=== PATIENT | male | born 1945 | race Caucasian/White ===

== ENCOUNTER 2017-11-02 12:27 | Inpatient (IN) | payer MEDICARE, BC ==
[~2017-11-02 12:27] MED LIST: ISOVUE-370 76%-LOCM 1 ML ONE
[2017-11-02] MEDS ORDERED: Diprivan 0 ML ONE (15:00)
--- NOTE | 2017-11-02 15:10 | PDOC.EVN ---
Event Note - Event Note Event Note: Attending H&P I personally evaluated the patient and discussed the management with Drs. West and Delia. their H&P is repeated by me. I agree with the History, Examination, Assessment and Plan documented above with any addition or exceptions noted below. Summary at time of admission: Mr Bahena presents as a transfer from [facility]. He was admitted there 4 days ago for acute worsening diarrhea, fever, N/V. As noted below there are many significant problems. Full clinical picture is unclear. Admission to ICU for eval. Neuro: They note a seizure on day of admission but none thereafter. The physician who requested transfer old Dr Giraldo he has had nuchal rigidity and may have meningitis. He was intubated prior to transfer by EMS Team for mental status change. It was reportedly a difficult ET placement, due to a swollen tongue, uvula. We will obtain CT scan of Head and plan for LP. Antibiotics based on CSF gram stain, Cx, and analysis. GI: He was treated with cipro and flagyl for diarrhea. Diarrhea remains. Abdomen is distended on exam. CT of Abdomen to be obtained. Empiric tx for C.diff. Stool analysis and culture to be performed. [place] stool test results not available. F/E/N: He was also noted to have low Calcium, Phosphorus, Magnesium. These remain. Will place central line, electrolyte protocol. Nephro consult. MK: He has elevated Creatinine Kinase. This has worsened. IV fluid replacement. PULM: There is some air leakage and Chest xray reveals abnormal placement of ET tube. Anesthesia is consulted to replace ET tube. ID: Dr Johnson will be consulted for critical care adn pulmonary care. We appreciate his car adn expertise. Zosyn/Vanc to be initiated empirically.
[2017-11-02] MEDS ORDERED: Ondansetron ODT 4 MG TAB PO PRN (15:16)
[2017-11-02] MEDS ORDERED: Ondansetron HCl/PF 4 MG/2 ML Vial IVP PRN (15:16)
[2017-11-02] MEDS ORDERED: CCU Electrolyte Replacement 1 EACH FS ONE (15:26)
[2017-11-02] MEDS ORDERED: Sedation Protocol FS ONE (15:26)
--- NOTE | 2017-11-02 16:02 | RAD ---
RADIOGRAPH CHEST 1 VIEW: Date: 11/02/17 Time: 1:54 p.m. HISTORY: 72-year-old male status post intubation. No other clinical information is available. COMPARISON: None. FINDINGS: A total of three AP images are submitted for this one view study. One of them is slightly underexpose d, and time stamped at 1:54 p.m., and shows the distal tip of an endotracheal tube overlying the righ t side of the T1 vertebral body. It is unknown whether this is in the trachea or esophagus. No pulmon desirae edema. Nonspecific density in the right perihilar region. No ectasia of the thoracic aorta. No pn eumothorax. Lateral costophrenic angles are sharp. No consolidation. Another image time stamped is 1:52 p.m., is overexposed, suboptimal, and excludes the lung apices. It shows a midline descending catheter reaching the subcarinal level of the mediastinum, then doubling back upon itself such that the distal tip is 7 cm super to this flexure point. It is presumed that th is is an NG tube. The one before that at 1:51 p.m., shows the same catheter, but the upper halves of the lungs are excl uded from the field of view. There is a large amount of gas in bowel loops throughout the upper abdomen. There is what appears to be thumbprinting involving the stomach. IMPRESSION: 1. Two of the images demonstrate a catheter descending the mediastinum, then doubled back upon i tself, with the distal tip ascending. It is presumed that this is an NG tube in the esophagus. 2. The last image demonstrates a tube with distal tip at the cervicothoracic junction. 3. Abnormal appearance of the stomach could represent infiltrative gastric carcinoma. 4. No acute pulmonary findings. [place] [] POS: JESSICA
--- NOTE | 2017-11-02 16:09 | RAD ---
RADIOGRAPH CHEST 1 VIEW: 11/02/17 HISTORY: 72-year-old male status post intubation. FINDINGS: The thoracic aorta is tortuous and ectatic. There is no evidence of air space density, pneumothorax, or pulmonary edema. The lateral costophrenic angles are sharp. NG tube distal tip overlies the prox imal stomach bubble. The inner gustafson of the stomach are diffusely very irregular and nodular, suspici ous for extensive infiltrative gastric neoplasm. Endotracheal tube distal tip overlies the mid thorac ic trachea. No cardiomegaly. Small stellate density at mid lung zone is probably right upper lobe sca r. IMPRESSION: 1) No acute pulmonary findings. 2) Ectasia of thoracic aorta. 3) Endotracheal tube distal tip overlies the mid thoracic trachea. 4) Nasogastric tube distal tip overlies the proximal stomach with the side port probably at the low e sophagus. 5) Abnormality of the stomach, possibly diffuse infiltrative gastric cancer. ron [] POS: JESSICA
--- NOTE | 2017-11-02 16:16 | RAD ---
RADIOGRAPH CHEST 1 VIEW: Date: 11-02-17 Time: 2:44 P.M. HISTORY: 72-year-old male status post intubation. COMPARISON: 11-02-17 at 2:41 p.m. FINDINGS: There is no interval change overall. IMPRESSION: No interval change compared to three minutes ago. [place] POS: JESSICA
[2017-11-02] MEDS ORDERED: Morphine 2 MG/ML SYRINGE SLOW IVP PRN (16:28)
[2017-11-02] MEDS ORDERED: CCU ELECTROLYTE REPLACEMENT PROTOCOL FS PRN (16:29)
[2017-11-02] MEDS ORDERED: Potassium Phosphate 9 MMOL in Sodium Chloride 0.9% 100 ML IVPB PRN (16:29)
[2017-11-02] MEDS ORDERED: Potassium Phosphate 15 MMOL in Sodium Chloride 0.9% 250 ML 250 ML IV PRN (16:29)
[2017-11-02] MEDS ORDERED: Potassium Chloride 40 MEQ in Sodium Chloride 0.9% 250 ML 250 ML IVPB PRN (16:29)
[2017-11-02] MEDS ORDERED: Potassium Phosphate 12 MMOL in Sodium Chloride 0.9% 250 ML 250 ML IV PRN (16:29)
[2017-11-02] MEDS ORDERED: Magnesium Oxide 400 MG TAB PO PRN ×2 (16:29)
[2017-11-02] MEDS ORDERED: Potassium Chloride 20 MEQ TAB PO PRN (16:29)
[2017-11-02] MEDS ORDERED: Magnesium 2 GM/NS 0.9% 100 ML 2 GM in Premix Bag 1 BAG IVPB PRN (16:29)
[2017-11-02 16:33] LABS: Actual Bicarbonate (HCO3a) 15.9 mEq/L (22-26); Base Excess (BEa) -8.9 mEq/L (0 (+/-) 2.5); CO2 Tension 31.6 mmHg (35.0-45.0); Hematocrit-ABG 42.9 % (42.0-52.0); Hemoglobin (Hb) 13.7 g/dL (14.0-18.0); O2 Tension (PaO2) 109.5 mmHg (80.0-100.0); pH, Arterial 7.32 (7.35-7.45)
[2017-11-02 16:41] LABS: Puncture Site RBRACH
[2017-11-02] MEDS ORDERED: Propofol 1,000 MG/100 ML VIAL IV ONE (16:41)
[2017-11-02] MEDS: Vancomycin HCl 1.25 GM in Sodium Chloride 0.9% 250 ML 250 ML IVPB SCH (17:00)
--- NOTE | 2017-11-02 17:58 | PDOC.OP ---
Operative Note - Operative Note Operative Note: INDICATION: IV access, unable to obtain peripheral access PROCEDURE FLIGHT ENGINEER MANAGER: Dr. Modesto Garcia ATTENDING PHYSICIAN: _ In Attendance (Yes)-Dr. Cagle CONSENT: Consent was obtained from pt's prior to the procedure. Indications, risks, and benefits were explained at length. PROCEDURE SUMMARY: A time out was performed. My hands were washed immediately prior to the procedure. I wore a surgical cap, mask with protective eyewear, full gown and sterile gloves throughout the procedure. The patient was placed in Trendelenburg position. RIGHT chest region was prepped using chlorhexidine scrub and draped in sterile fashion using a three quarter sheet drape and sterile towels. The medial and lateral heads of the sternocleidomastoid muscle were identified as was the carotid pulse. The right Internal Jugular vein was identified using the ultrasound. Anesthesia was acheived using propofol. Using real-time out of plane guidance, the introducer needle was inserted into the right Internal Jugular vein under direct ultrasound visualization. Venous blood was withdrawn. The syringe was removed and a guidewire was advanced into the introducer needle. The guidewire was visualized in the right Internal Jugular Vein by ultrasound. A small incision was made at the skin surface with a scalpel and the introducer needle was exchanged for a dilator over the guidewire. After appropriate dilation was obtained, the dilator was exchanged over the wire for a triple lumen central venous catheter. The wire was removed and the catheter was sutured in place at 15cm. A sterile bipatch shield was placed over the catheter at the insertion site. The patient tolerated the procedure without any hemodynamic compromise. At time of procedure completion, all ports aspirated and flushed properly. Post-procedure chest x-ray was completed; preliminary review showed adequate placement and no pneumothorax. Estimated blood loss is 15cc.
[2017-11-02] MEDS: Sodium Chloride 0.9% 1,000 ML IV SCH ×2 (18:00→22:26)
[2017-11-02] MEDS: Piperacillin/Tazobactam 3.375 GM in Sodium Chloride 0.9% 100 ML IVPB SCH ×2 (18:00→23:01)
[2017-11-02 18:37] LABS: Hemoglobin 14.1 g/dL (14.0-18.0); Mean Corpuscular HGB CONC 33.7 g/dL (32.0-36.0); Mean Corpuscular Hemoglobin 33.7 pg (27.0-31.0); Platelet Count 206 thou/uL (130-400); RBC Distribution Width 11.7 % (11.5-14.5); Red Blood Cell (RBC) Count 4.18 mill/uL (4.70-6.10); White Blood Cell (WBC) Count 23.8 thou/uL (4.8-10.8)
[2017-11-02 18:48] LABS: ALT (SGPT) 39 U/L (8-55); AST (SGOT) 64 U/L (5-34); Albumin 3.7 g/dL (3.4-4.8); Alkaline Phosphatase 36 U/L (40-150); Anion Gap 16 mmol/L (10-20); BUN (Urea Nitrogen) 23 mg/dL (8.4-25.7); Bilirubin, Total 1.2 mg/dL (0.2-1.2); Calc. Creatinine Clearance 0 mL/min (70-130); Calcium 7.7 mg/dL (7.8-10.44); Carbon Dioxide 20 mmol/L (23-31); Chloride 110 mmol/L (98-107); Estimated GFR-MDRD 52; Globulin 2.6 g/dL (2.4-3.5); Glucose 148 mg/dL (83-110); Lipase 12 U/L (8-78); Potassium 3.4 mmol/L (3.5-5.1); Protein, Total 6.3 g/dL (5.8-8.1); Sodium 143 mmol/L (136-145)
[2017-11-02 18:51] LABS: Band 5 % (5-11); Lymphocytes 9 % (21-51); MDiff Complete? YES; Macrocytosis SLIGHT = 6-15 cells (100X) (0-5/hpf); Monocytes 3 % (0-10); Neutrophil 83 % (42-75); PLT Morphology Comment Appears Adequate; Polychromasia SLIGHT = 2-3 cells (100X) (0-2/hpf)
--- NOTE | 2017-11-02 18:51 | RAD ---
RADIOGRAPH CHEST 1 VIEW: Date: 11/02/17 Time: 5:43 p.m. HISTORY: Central line placement in 72-year-old male. COMPARISON: 11/02/17, 2:44 p.m. FINDINGS: There is a new vertically oriented central vascular catheter descending from the right neck, with dis hazel tip overlying the region of the SVC. This is a supine image, which would be insensitive for pneum othorax detection. No obvious large pneumothorax is identified. Endotracheal tube and NG tube remain. No consolidation or pulmonary edema. IMPRESSION: Right internal jugular central venous catheter placement. [place] [] POS: JESSICA
[2017-11-02 21:44] LABS: Bilirubin Small (Negative); Blood, Urine Large (Negative); Clarity CLOUDY (Clear); Glucose, Urine (Dipstick) Negative (Negative); Leukocyte Small (Negative); Nitrite Negative (Negative); Protein, Urine (Dipstick) 100 mg/dL (Neg-Trace); Specific Gravity, Urine 1.022 (1.002-1.036); Urobilinogen 0.2 mg/dL (0.2-1.0); pH, Urine 5.5 (5.0-9.0)
[2017-11-02 21:45] LABS: Bacteria/HPF None Seen HPF (None Seen); RBC/HPF GREATER THAN 50-TNTC HPF (0-3)
[2017-11-02] MEDS: Potassium Chloride 40 MEQ in Premix Bag 1 BAG IVPB PRN (21:45)
[2017-11-02 21:46] LABS: Pathc Cast-AUWi Flag 3.52 (0-2.49)
--- NOTE | 2017-11-02 21:56 | CT ---
EXAM: NONCONTRAST HEAD CT 11/02/17 HISTORY: Altered mental status. COMPARISON: None. FINDINGS: No parenchymal hemorrhage. No extra-axial hematoma. No midline shift. Basilar cisterns are patent. Brain volume, age appropriate. Cortical jones-white matter differentiation is preserved. Ventricles and sulci are patent and symmetric. Chronic small vessel ischemic change of the white matter identified. Malacic change involving the medial right temporal lobe/hippocampus. Calvarium is intact. Adequate aeration of the mastoid air cells. Partial opacification of the ethmoid air cells. IMPRESSION: 1. No acute intracranial process. 2. Age appropriate atrophy. 3. Chronic small vessel ischemic change of the white matter. 4. Medial right temporal lobe/hippocampal malacic change. POS: [facility]
[2017-11-02 22:08] LABS: Other Casts/LPF 4-6 COARSE GRAN LPF (0-3 Hyaline)
[2017-11-02 22:09] LABS: Renal Epithelial 0-3 HPF (0-3)
[2017-11-02] MEDS: Pantoprazole 40 MG VIAL IVP SCH (22:18)
[2017-11-02] MEDS: Propofol 1,000 MG/100 ML VIAL IV PRN (22:26)
--- NOTE | 2017-11-02 22:54 | CT ---
EXAM: ABDOMEN CT WITH CONTRAST PELVIC CT WITH CONTRAST 11/02/17 HISTORY: Abdominal distention. COMPARISON: None. TECHNIQUE: An abdomen and pelvic CT are performed with IV contrast. Enteric contrast was not administered. Coron al reformatted images are submitted for interpretation. FINDINGS: ABDOMEN CT: Small bilateral effusion with adjacent lung parenchymal changes likely due to atelectasis. Heart size is within normal upper limits of normal. Coronary artery calcifications identified. Descending thora cic aorta and abdominal aorta have an overall normal caliber. No periaortic fat stranding. Intra and extrahepatic portal vein is patent. Small amount of nonspecific fluid adjacent to the tip of the liver as well as in Zuñiga's pouch. Th ere is appropriate enhancement of the liver, spleen, pancreas, and adrenal glands. Gallbladder is unremarkable. Symmetric enhancement of the kidneys. Kidneys are slightly rotated. No evidence of obstructive uropat hy. No gastrohepatic, retrocrural or periportal lymphadenopathy. No mesenteric mass, lymphadenopathy or free air. Small amount of fluid in the right pericolic gutter. Limited evaluation of the alimentary canal due to the lack of oral contrast administration. Nasogastr ic tube terminates in the gastric cardiac. Consider advancement. Mucosal prominence of the stomach li cesar due to inadequate distention. There is mucosal prominence and adjacent fluid and stranding at th e gastric antrum and first and second portions of the duodenum. There is an eccentric focus of air at tenuation adjacent to the second portion of the duodenum without associated adjacent mesenteric fat s tranding. A small diverticulum with an air fluid level is favored. This diverticulum measures approxi mately 1.9 cm. Small perforation due to peptic ulcer disease cannot be completely excluded; however, lack of inflammatory change at the location of the air collection suggests that this is less favored possibility. However, as stated above, there is some edema involving the distal stomach and proximal duodenum. There is abrupt transition just beyond this focal air collection. There are multiple fluid filled nondistended, nondilated small bowel loops. Ileocecal junction appears to be normal. Appendix is not appreciated. There is air attenuation involving the right hemicolon and transverse colon witho ut juanita colonic distention. There is fluid attenuation of the left hemicolon. Occasional diverticulu m in the sigmoid colon. No diverticulitis. PELVIC CT: Urinary bladder is unremarkable. There is free fluid in the pelvis. No mass, lymphadenopathy or free air. There are no lytic or blastic lesions in the osseous structures. Remote compression fracture in the distal thoracic spine is noted. IMPRESSION: 1. Advancement of the nasogastric tube is recommended. 2. Edematous change involving the distal stomach and proximal duodenum. Correlate for possible u lcer disease. There is a focal air collection in the second portion of the duodenum without significa nt adjacent inflammatory change. A small duodenal diverticulum is favored. Ulcerative lesion cannot b e completely excluded but is less favored at this time due to lack of inflammatory at the site of the small air collection. 3. Mild distention of an air filled colon without evidence of colonic obstruction. 4. Abrupt caliber change in the duodenum just beyond the aforementioned air collection. 5. Small amount of free fluid in the right hemiabdomen. POS: JESSICA
[2017-11-02 23:32] LABS: CSF Source CSF
[2017-11-02 23:33] LABS: Clarity Clear (Clear); RBC Count - Manual 237 /cumm (None Seen); Tube # 4; WBC/NonHematics Count - Manual 4 /cumm (0-5)
[2017-11-02 23:37] LABS: Magnesium 1.7 mg/dL (1.6-2.6)
[2017-11-02 23:40] LABS: Phosphorus 1.7 mg/dL (2.3-4.7)
[2017-11-03] MEDS: Vancomycin HCl 1.25 GM in Sodium Chloride 0.9% 250 ML 250 ML IVPB SCH (00:34)
--- NOTE | 2017-11-03 00:50 | CON ---
DATE OF CONSULTATION: 11/02/2017 HISTORY OF PRESENT ILLNESS: Mr. Bahena is a 72-year-old male transferred here from [place]. Appare maydaly, he was admitted there with gastrointestinal problems and electrolyte abnormalities. I am not s ure what his electrolyte abnormalities were, but a call was made by a physician caring for the patien t in [place] requesting a transfer, the patient was accepted, transferred here by air ambulance. Apparently, the patient was intubated prior to transfer. Patient arrived with a 6.0 endotracheal tub e. It is unclear whether or not the tube was in the proper position. Anesthesia was consulted and t he patient was reintubated with an 8-0 tube after arrival. At this time, past medical history is unknown. He has never been at this hospital before. There is some history of seizure occurring prior to today at that hospital. FAMILY HISTORY: Unknown. SOCIAL HISTORY: Unknown. There is no family here, I will interview them as soon as they are availab le. PHYSICAL EXAMINATION: VITAL SIGNS: Heart rate 77, blood pressures in the 80s-90s, respiratory rate 18, oximetry is 100%. HEENT: Pupils react. Sclerae is anicteric. NECK: Supple. LUNGS: Clear anteriorly. HEART: Regular rhythm. ABDOMEN: Soft. EXTREMITIES: Without asymmetry. LABORATORY AND X-RAY FINDINGS: Sodium 143, potassium 3.4, chloride 110, bicarbonate 20, BUN 23, crea tinine 1.35, glucose 148, calcium 7.7, total protein 6.3, albumin is 3.7. He has an elevated parathy roid hormone, TSH is 1.1. Blood gas 7.32, CO2 of 31, pO2 of 109. White count 23, hemoglobin 14, ramón telets 206,000, 83 segs, 5% bands. IMPRESSION: Respiratory failure of unclear etiology. He had a clear radiograph, so pulmonary edema was in because of his need for intubation. It is unknown whether he has any history of obstructive l loyda disease. Abdomen and pelvis CT and head CT have been ordered. I will be happy to follow with the other physicians caring for him, appears to be stable. At this po int in time, adrenal insufficiency should be ruled out, since he is relatively hypotensive. It is un clear how [facility] ADDENDUM: I would consider directed antimicrobial therapy. He does not clinically appear to be septic, at this point in time, I see no clear reason for vancomycin intravenously, would use antibiotics cautiously since we really do not have a clear diagnosis at this point in time.
--- NOTE | 2017-11-03 00:54 | HP-2 ---
CODE STATUS: FULL. PRIMARY CARE PHYSICIAN: Liv mccabe. ATTENDING: Mike Cagle M.D. RESIDENT: Teodoro Lin DO HISTORIAN: Transferring facility and patient's medical record. CHIEF COMPLAINT: Altered mental status. HISTORY OF PRESENT ILLNESS: The patient presented to the transferring facility emergency room on 10/31 with 4 days of acute on chronic diarrhea with associated nausea and vomiting. He was admitted for electrolyte imbalance and dehydration where he was to receive replacement and intravenous fluids. During the inpatient, there was significant difficulty in maintaining the patient's magnesium and phosphorus levels. Additionally, the patient had increasing LFTs and bilirubin. In the ED prior to admission the patient seized for an undetermined reason. Also, during the initial admission, the patient had 1 day of fever as high as 100.7. While admitted, he had been treated with Cipro and Flagyl for presumed C. diff; however none of the stool studies had resulted by the time of discharge. The patient was transferred for an acute change in mental status and inability to manage the patient's electrolytes. The patient was intubated prior to transfer due to deteriorating ability to protect his airway. At this facility, the patient arrived intubated and had been medicated with succinylcholine, rocuronium and sedated on ketamine. The patient was initially intubated with a 6-0 ET tube. An Xray to verify placement of the tube was unable to show proper placement. Anesthesia was consulted to replace the 6.0 with an 8.0 ET tube. With a glide scope it was determined that the original ET tube cuff was above the vocal cords. The patient was then successfully intubated by anesthesia with a verification of ET tube placement with chest x- ray. PAST MEDICAL HISTORY: Hypertension, diabetes, GERD, irritable bowel syndrome, chronic diarrhea and a chronic low magnesium, likely secondary to chronic mild diarrhea. PAST SURGICAL HISTORY: Includes appendectomy and a colonoscopy in which 2 benign polyps removed. This was 2 months ago. MEDICATIONS: Aspirin 81, loratadine 10 mg, losartan 100 mg daily, magnesium 400 mg daily, metformin 500 mg, metoprolol 100 mg, omeprazole 20 mg, triamterene and hydrochlorothiazide 37.5/25 mg, and a multivitamin. SOCIAL HISTORY: Tobacco none. Alcohol none. Drugs none. The patient is . REVIEW OF SYSTEMS: General: The patient had a fever during the initial hospitalization. HEENT: Unknown. Respiratory: Unknown. Cardiovascular: Unknown. Gastrointestinal: Patient had no diarrhea. Genitourinary: Unknown. Skin: Unknown. Musculoskeletal: Unknown. Review of systems, though, apparently there was a seizure at some point during initial admission. PHYSICAL EXAMINATION: VITAL SIGNS: Blood pressure 160/78, pulse 84, respiratory rate 15, T-max 100.7 , pulse ox 96% ventilated, rate of 10, tidal volume 500, 50% oxygen. Current weight is 73 kilograms. GENERAL: The patient is currently sedated and intubated. HEENT: Pupils are fixed and pinpoint. NECK: No lymphadenopathy. CARDIOVASCULAR: Regular rate and rhythm without murmur. RESPIRATORY: Patient is intubated. LUNGS: Clear. SKIN: Warm and dry. ABDOMEN: Bowel sounds in all 4 quadrants without mass. EXTREMITIES: No clubbing, cyanosis or edema. MUSCULOSKELETAL: There is good muscle tone. LABORATORY DATA: CBC: Hemoglobin 12.9, hematocrit 37.9 white count 24.2, platelets 210, MCV 95.5, 83% neutrophils, 3% bands. CMP: Sodium 138, potassium 3.1, chloride 112, bicarb 19, BUN 21, creatinine 1.32, glucose 120, calcium 6.7, total serum protein 7.2, albumin 4.2, total bilirubin 1.8, AST 126 , ALT 23, GFR 53. Mag is 2.48, phosphorus is 2.2. Flu is negative. CK is 6053. UA specific gravity 1.02, blood negative, protein negative, leukocyte esterase negative, nitrates negative, ketones trace, glucose negative, RBCs negative, WBCs 0-3, bacteria negative. IMAGING: CT head done at the outside facility which was normal limits. ASSESSMENT AND PLAN: 1. Altered mental status. The patient is currently intubated. Repeat the CT brain once completed a lumbar puncture, culture blood, urine, and CSF. We will start empiric vancomycin and Zosyn dose renally. 2. Diarrhea as presumed Clostridium difficile. We will reorder Clostridium difficile antigen, stool cultures, FOBT, lactoferrin. Antibiotics as above. We will get CT abdomen and pelvis. 3. Acute respiratory failure. On repeat imaging, ET tube has been replaced. 4. Hypokalemia, hypomagnesemia, hypophosphatemia, hypocalcemia. We will get a central line and start electrolyte protocol, get q.8h CMP, mag, phos, additionally for the calcium. We will order a PTH, TSH, and Vit D. 5. Creatinine and GFR is improving per the labs from the outside facility, intravenous fluids at 125, repeat CMP as above. 6. Hypertension, controlled on home medications. 7. Diabetes. Metformin 500 mg daily. 8. Hyperbilirubinemia. CMP as above. 10. Elevated liver function tests. CMP as above. 11. Rhabdomyolysis, IVF as above. Trend CKs. 12. Leukocytosis. Antibiotics as above. Cultures above. This is most likely elevated due to Clostridium difficile. MTDD
[2017-11-03] MEDS: Sodium Chloride 0.9% 1,000 ML IV SCH (04:24)
[2017-11-03 04:45] LABS: #Eosinphils 0.1 thou/uL (0.0-0.7); #Lymphocytes 1.9 thou/uL (1.20-3.40); #Monocytes 1.4 thou/uL (0.11-0.59); #Neutrophils 16.5 thou/uL (1.40-6.50); %Basophils 0.2 % (0.0-1.0); %Eosinophils 0.5 % (0.0-10.0); %Lymphocytes 9.6 % (21.0-51.0); %Monocytes 7.1 % (0.0-10.0); %Neutrophils 82.7 % (42.0-75.0); Mean Corpuscular HGB CONC 33.8 g/dL (32.0-36.0); Mean Corpuscular Hemoglobin 33.8 pg (27.0-31.0); Mean Corpuscular Volume 99.8 fl (80.0-94.0); Mean Platelet Volume 8.2 fL (7.4-10.4); Platelet Count 204 thou/uL (130-400); RBC Distribution Width 11.6 % (11.5-14.5); Red Blood Cell (RBC) Count 3.55 mill/uL (4.70-6.10)
[2017-11-03 05:07] LABS: ALT (SGPT) 30 U/L (8-55); AST (SGOT) 32 U/L (5-34); Alkaline Phosphatase 30 U/L (40-150); Anion Gap 16 mmol/L (10-20); BUN (Urea Nitrogen) 25 mg/dL (8.4-25.7); Bilirubin, Total 0.9 mg/dL (0.2-1.2); Calc. Creatinine Clearance 53 mL/min (70-130); Calcium 7.2 mg/dL (7.8-10.44); Carbon Dioxide 18 mmol/L (23-31); Chloride 116 mmol/L (98-107); Estimated GFR-MDRD 56; Globulin 2.2 g/dL (2.4-3.5); Glucose 141 mg/dL (83-110); Magnesium 1.6 mg/dL (1.6-2.6); Phosphorus 2.2 mg/dL (2.3-4.7); Potassium 3.5 mmol/L (3.5-5.1); Protein, Total 5.2 g/dL (5.8-8.1); Sodium 146 mmol/L (136-145)
[2017-11-03] MEDS: Piperacillin/Tazobactam 3.375 GM in Sodium Chloride 0.9% 100 ML IVPB SCH ×3 (05:14→17:43)
[2017-11-03] MEDS: Potassium Chloride 40 MEQ in Premix Bag 1 BAG IVPB PRN (05:14)
[2017-11-03] MEDS: Sodium Chloride 0.45% 1,000 ML IV SCH ×2 (05:36→07:30)
--- NOTE | 2017-11-03 06:04 | PRG ---
DATE OF SERVICE: 11/03/2017 Mr. Bahena remains mechanically ventilated. He underwent a lumbar puncture last night which showed 4 white cells, 237 red cells, glucose 104. Protein was 69. He awakens and moves all of his extremities. He is currently on drip sedation for ventilation. PHYSICAL EXAMINATION: VITAL SIGNS: His blood pressure is 95/62, heart rate is 80, respiratory rate is 18, oximetry is 98. Repeat chest radiograph is being done at this time. LUNGS: Lungs are clear. HEART: Regular rhythm. ABDOMEN: Abdomen is soft. LABS: Sodium 146, potassium 3.5, chloride 116, bicarbonate 18, BUN 25, creatinine 1.26, glucose 141, white count 20, hemoglobin 12, platelets 204,000. Blood gas has not been done yet. Urinalysis show s preponderance of red cells which I suspect is related to the presence of a Miranda, occult blood was negative on stool, parasite screen was negative lactoferrin was negative, Campylobacter and Shigella toxin tests were negative. Spinal fluid cultures are negative so far. IMPRESSION: 1. Gastroenteritis by history. 2. Encephalopathy with respiratory failure ? viral meningitis with elevated CSF protein. 3. Seizure at some point prior to transfer, I suspect this was related to meningitis, although certa inltoña is not for certain. 4. History of hypertension. 5. History of diabetes. PLAN: Continue mechanical ventilation for now. If he is stable for the next 24 hours, then we can t ry to consider spontaneous breathing trial in the morning. I will consider only directed antimicrobi al therapy unless pathogens are identified. At this point in time, there is nothing that I have seen that suggests that he has bacterial sepsis. He is mildly hyperchloremic so will switch his IV fluids to half normal. His renal function is impro kanika. He still has electrolyte abnormalities, but these are all mild in my opinion. Critical care time was 30 minutes.
--- NOTE | 2017-11-03 06:31 | PDOC.FM ---
- Subjective Subjective: Pt seen at bedside in NAD, intubated. No family at bedside. WINSOME overnight. Pt awake and following commands on sedation vacation this AM. - Objective MAR Reviewed: Yes Vital Signs & Weight: Vital Signs (12 hours) Temp Pulse Resp Pulse Ox 11/03/17 06:00 21 H 11/03/17 04:00 98.9 F 20 11/03/17 02:10 18 11/03/17 02:09 79 11/03/17 00:00 99 F 17 11/02/17 22:26 82 11/02/17 20:00 98.8 F 82 19 99 11/02/17 19:03 77 11/02/17 19:00 98.8 F Weight Weight 72.6 kg Most Recent Monitor Data Heart Rate from ECG 77 NIBP 80/60 NIBP BP-Mean 64 Respiration from ECG 21 SpO2 99 I&O: 11/01/17 11/02/17 11/03/17 06:59 06:59 06:59 Intake Total 1716.7 Output Total 2024 Balance -308.3 Result Diagrams: 11/03/17 03:30 11/03/17 03:30 Phys Exam - Physical Examination Constitutional: NAD intubated and sedated HEENT: PERRLA Respiratory: no wheezing, clear to auscultation bilateral Cardiovascular: RRR, no significant murmur Gastrointestinal: soft, non-tender mild distention Musculoskeletal: pulses present GCS11 ([id number]) Skin: cap refill <2 seconds Dx/Plan (1) Respiratory failure requiring intubation Code(s): J96.90 - RESPIRATORY FAILURE, UNSP, UNSP W HYPOXIA OR HYPERCAPNIA Status: Acute Plan: -pt transferred from outside hospital in [place] by flight. per reports, pt became more somnolent and was not protecting airway, requiring intubation. initial intubation had poor placement, replaced by anesthesia on presentation. -unclear etiology of respiratory failure. pt was admitted for hx of gastroenteritis and multiple electrolyte abnormalities that were not improving. -pt currently on mechanical ventilation but is responsive while on sedation holiday -currently SIMV rate 10, fio2 30%, peep 5 -pulmonology consulted, recs greatly appreciated -continue to monitor closely (2) Gastroenteritis Code(s): K52.9 - NONINFECTIVE GASTROENTERITIS AND COLITIS, UNSPECIFIED Status : Acute Plan: -per hx -stool studies thus far are negative but pt has elevated lactoferrin -CT abd shows evidence of possible ulcerative disease in duodenum and mild distention of colon -thusfar pt has had nearly 200 cc via rectal tube -will add c diff screen -continue to await stool cultures -GI consulted, recs greatly appreciated (3) Aseptic meningitis Code(s): G03.0 - NONPYOGENIC MENINGITIS Status: Acute Plan: -reported hx of nuchal rigidity per transferring physician prior to arrival. pt also reported had seizure prior to arrival. -LP performed on 11/02 -initial CSF studies show elevated glucose and protein with no organisms seen on gram stain -possible cause of seizure prior to arrival -will add acyclovir for potential viral meningitis -deescalate abx therapy by discontinuing vancomycin (4) Seizure disorder Code(s): G40.909 - EPILEPSY, UNSP, NOT INTRACTABLE, WITHOUT STATUS EPILEPTICUS Status: Acute Plan: -reported seizure prior to arrival -possibly caused by aseptic meningitis -consider loading or adding antiepileptic (5) Hyperchloremic metabolic acidosis Code(s): E87.2 - ACIDOSIS Status: Acute Plan: -switch IVF to 1/2NS and continue to monitor -worsened with diarrhea and normal saline (6) Hyperparathyroidism, secondary Code(s): N25.81 - SECONDARY HYPERPARATHYROIDISM OF RENAL ORIGIN Status: Acute Plan: -elevated PTH -pt has hypocalcemia so likely has secondary PTH in response to calcium -vitamin D level pending (7) Diarrhea Code(s): R19.7 - DIARRHEA, UNSPECIFIED Status: Acute Qualifiers: Diarrhea type: unspecified type Qualified Code(s): R19.7 - Diarrhea, unspecified Plan: -unclear etiology -likely cause for initial electrolyte abnormalities -GI recs greatly appreciated - Plan Plan: dispo: Pt stable and does very well on sedation holiday. Continue to monitor closely on mechanical ventilation. Pulm recs greatly appreciated. GI consulted, recs greatly appreciated. Continue to monitor closely.
[2017-11-03] MEDS: Enoxaparin Sodium 40 MG/0.4 ML SYRINGE SC SCH (07:30)
[2017-11-03] MEDS: Pantoprazole 40 MG VIAL IVP SCH ×2 (07:30→20:40)
[2017-11-03 08:16] LABS: HIV (1/2) Antibody/Antigen Non-Reactive (NonReactive); HIV 1/2 INDEX 0.09 S/CO (<1.00); Syphilis Antibody Nonreactive (Nonreactive); Syphilis Antibody Index 0.07 S/CO (<1.00 Non-Reactive)
[2017-11-03 08:20] LABS: Actual Bicarbonate (HCO3a) 16.7 mEq/L (22-26); Base Excess (BEa) -6.7 mEq/L (0 (+/-) 2.5); O2 Tension (PaO2) 98.6 mmHg (80.0-100.0); pH, Arterial 7.41 (7.35-7.45)
[2017-11-03 08:21] LABS: Puncture Site RB
--- NOTE | 2017-11-03 08:39 | RAD ---
PORTABLE CHEST: History: Respiratory distress. Comparison: Prior day's study. FINDINGS: Endotracheal and NG tubes as well as right sided central line are unchanged in position. Heart size i s borderline. Lungs show chronic change. IMPRESSION: Stable chest. POS: MRACELLEH
[2017-11-03 11:27] LABS: HBSAg Index 0.21 S/CO (0-0.99); Hep B Core Total Ab Non-Reactive (NonReactive); Hep B Core Total Index 0.06 S/CO (0-0.79); Hep B Surf AB Non-Reactive (NonReactive); Hep B Surf Ag Non-Reactive S/CO (NonReactive); Hep C IgG Ab Non-Reactive (NonReactive); Hep C Index 0.14 S/CO (0-0.79)
[2017-11-03] MEDS ORDERED: Metoprolol Tartrate 5 MG/5 ML VIAL IVP SCH (13:00)
--- NOTE | 2017-11-03 13:03 | ADD-PRG ---
ADDENDUM: 11/03/[address] the note of Dr. Teodoro Matt. Pipe Bahena is a 72-year-old white male patient who was transferred here from an outside facility. Evidently, he had been having at least 4 days of diarrhea associated with nausea and vomiting. He rivera d developed some electrolyte disturbances, which were difficult per the outlying facility to control. He was transferred to our facility after also having had a seizure. He was intubated en route for reasons that are not entirely clear. In the event, he arrived here intubated and was reintubated bec ause of a positioning problem. He is currently on the ventilator. He also underwent a spinal tap be cause of his seizure. The spinal fluid other than elevation of the CSF protein appears normal. The elevated protein can also result from blood in the red blood cells in the tap. I feel it is reasonab le to covering with acyclovir to cover the possibility of a herpes simplex meningitis, although I tawana bt the latter. We will also check a procalcitonin level to see if there is any other source of a haroon terial infection causing any issues. He also has an abnormal abdominal CT report, which was read as edematous changes involving the distal stomach and proximal duodenum. It was recommended that would correlate for possible peptic ulcer disease. We will wait and consult GI to see if they want to proc eed with an EGD or wait until he is extubated. 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
[2017-11-03] MEDS ORDERED: Digoxin 0.5 MG/2 ML AMP SLOW IVP SCH ×3 (13:30→22:45)
--- NOTE | 2017-11-03 13:39 | PDOC.EVN ---
Event Note - Event Note Event Note: Paged approximately [phone] that pt had elevated HR. Stat EKG ordered by nurse and revealed afib with RVR. Reviewed case with at bedside and attending physician, Dr. Cagle. No hx of arrhythmias. Pt was on home metoprolol, suspected for HTN. Attempted to push one dose of metoprolol 5 mg IV. HR continued to be elevated in 140-160s. Pt's BP has been borderline hypoTN with BP 90s/50s. Pt would likely not tolerate diltiazem at this time. Order for stat cardiac enzymes and digoxin 0.5 mg IVP. Will continue to monitor closely.
[2017-11-03] MEDS ORDERED: Amiodarone In Dextrose 200 ML IVPB SCH (14:00)
[2017-11-03 14:01] LABS: CKMB 4.3 ng/mL (0-6.6); Troponin I 0.019 ng/mL (< 0.028)
[2017-11-03] MEDS ORDERED: Amiodarone HCl 150 MG in Dextrose 5% in Water 100 ML IVPB SCH ×2 (14:30)
[2017-11-03] MEDS: Amiodarone HCl 450 MG, Admixture Fee 1 EACH in Dextrose 5% in Water 250 ML IVPB SCH ×6 (14:48→20:43)
[2017-11-03] MEDS: Piperacillin-Tazo-Dextrose,Iso 3.375 GM in Premix Bag 1 BAG IVPB SCH ×2 (17:43→23:58)
--- NOTE | 2017-11-03 20:16 | CON ---
DATE OF CONSULTATION: 11/03/2017 REASON FOR CONSULTATION: Diarrhea, abnormal GI imaging. CONSULTING PHYSICIAN: Dr. Teodoro Matt. HISTORY OF PRESENT ILLNESS: The patient is a 72-year-old male with past medical history of hypertension, diabetes, GERD, IBS with diarrhea predominance presenting initially with complaints of altered mental status. Per chart review and with review of the history with patient's , he was admitted to the emergency room on 10/31/17 with 4 days of increased diarrhea, nausea, and vomiting. He was having approximately 6-10 watery bowel movements per day during this time prior to admission. Given his increased fluid loss, he was subsequently seen in the ER in [place] for evaluation. He was noted to have significant electrolyte abnormalities. Subsequently, transferred to [facility] for further evaluation and care. Prior to transfer, the patient did have an observed seizure with en etiology unknown at this time. The patient was also intubated prior to transfer after the seizure activity was exhibited. Currently, the patient is intubated and sedated within the ICU at [facility]. He continues to have some diarrhea output and has evidence of liquid stool in the bowel management system. He has been able to follow simple commands during his sedation break, but during his initial workup, the CT abdomen and pelvis did notice edema of the distal stomach/proximal duodenum as well as mild distention of air with mildly distended air filled colon and a possible duodenal diverticulum; however perforation could not be ruled out at this time. Further interview cannot be obtained due to the patient's intubated status. REVIEW OF SYSTEMS: Could not be obtained due to the patient's intubated and sedated status while in the ICU. PAST MEDICAL HISTORY: Hypertension, diabetes, GERD, irritable bowel syndrome. PAST SURGICAL HISTORY: Appendectomy, colonoscopy one year with 5 polyps removed (unknown histology) as well as a colonoscopy performed 2 months ago for evaluation of diarrhea and hematochezia. Last EGD was performed in 2009. FAMILY HISTORY: Per , denies any GI malignancy. SOCIAL HISTORY: Per , denies any tobacco, alcohol or illicit drug use. OUTPATIENT MEDICATIONS: Aspirin 81 mg daily, loratadine 10 mg daily, losartan 100 mg daily, metformin 500 mg daily, metoprolol 100 mg daily, omeprazole 20 mg daily, triamterene/hydrochlorothiazide combination 37.5/25 mg daily, and a multivitamin. PHYSICAL EXAMINATION: VITAL SIGNS: Temperature 99.5, pulse 88, blood pressure 83/62, respiratory rate 24, satting 96% on mechanical ventilation. GENERAL: The patient is unable to respond to either verbal or tactile stimuli at this time intubated and sedated. NECK: Supple. No JVD noted. CARDIOVASCULAR: Regular rate and rhythm with no discernible murmurs, gallops or rubs. RESPIRATORY: Coarse breath sounds auscultated in all lung connell consistent with endotracheal intubation and mechanical ventilation. ABDOMEN: Normoactive bowel sounds, soft, nondistended. Some grimacing noted upon palpation in the right upper quadrant and midepigastric regions as well as the right lower quadrant. EXTREMITIES: No cyanosis, clubbing or edema. Some ecchymoses noted from IV lines. LABORATORY DATA: CBC with white blood cell count of 20, hemoglobin 12, hematocrit 35.4, platelets 204. Chemistry with a sodium of 146, potassium 3.5, chloride 116, carbon dioxide 18, BUN 25, creatinine 1.26, glucose 141, AST 32, ALT 30, alkaline phosphatase 30, total bilirubin 0.9, lipase 12. IMAGING STUDIES: CT and pelvis obtained on 11/02/2017 showing mucosal prominence and adjacent fluid and stranding in the gastric antrum and first and second portions of the duodenum, also eccentric focus of air, attenuation adjacent to the second portion of the duodenum consistent with a small diverticular, however, small perforation due to peptic ulcer disease cannot be completely excluded, although this is a less favored diagnosis. Also seen are multiple fluid filled, nondistended nondilated small bowel loops. ASSESSMENT: Patient is a 72-year-old man with past medical history of hypertension, diabetes, gastroesophageal reflux disease and irritable bowel syndrome with diarrhea, presenting with increased watery diarrhea and electrolyte abnormalities with witnessed seizure activity, likely resulting from electrolyte abnormalities, but also with abnormal imaging concerning for peptic ulcer disease. Diarrhea. The patient presenting with significant diarrhea prior to admission that is felt to be contributing to the significant electrolyte abnormalities seen at the referring institution. Currently, with stabilization of his electrolytes per recent chemistries. However, with a significantly elevated white blood cell count and increased diarrhea, it is concerning for the presence of Clostridium difficile infection which could cause significant electrolyte abnormalities in an elderly patient. - I agree with infectious stool studies for determination of a possible infectious process causing acute onset of voluminous diarrhea. We will also follow up on Clostridium difficile toxin for possible etiology - Would continue IV fluids as you are doing. Abnormal GI imaging Patient presenting with a CT abdomen and pelvis on admission showing mucosal prominence and adjacent fluid and stranding within the distal stomach and first and second portions of the duodenum. There is an air fluid level within the second portion of the duodenum which is consistent more with a duodenal diverticulum, but peptic ulcer disease or perforation cannot be ruled out at this time. Given the significant nausea and vomiting experienced prior to admission and prior to intubation, peptic ulcer disease is within the differential. - We will proceed with EGD tomorrow (11/04/2017) for evaluation of the upper gastrointestinal tract - Would continue to trend hemoglobin and hematocrit and transfuse as necessary to maintain an hemoglobin and hematocrit of 7/21. MTDD
--- NOTE | 2017-11-03 23:03 | CON ---
DATE OF CONSULTATION: 11/03/2017 HISTORY OF PRESENT ILLNESS: Pipe Bahena is a 72-year-old white male who was transferred from [place] after being admitted there for some type of gastroenteritis. He was intubated there, transferred here. He has undergone numerous evaluations as described in the lab section below without much answers to his current illness. He did develop atrial fibrillation with fast ventricular response with rates in the 140s-150s and he was given digoxin 0.5 mg IV upon my direction due to his hypotension. He continued to have fast ventricular response, placed on amiodarone drip and ultimately he has converted to sinus rhythm. PAST MEDICAL HISTORY: History of hypertension and diabetes. Little else is known. MEDICATIONS: Unknown. ALLERGIES: Unknown. OPERATIONS: Unknown. SOCIAL HISTORY: Unknown. FAMILY HISTORY: Unknown. REVIEW OF SYSTEMS: Unobtainable as the patient being sedated on the ventilator. PHYSICAL EXAMINATION: VITAL SIGNS: 83/54, pulse of 85, sinus rhythm. HEENT: PERRL. NECK: Supple. LUNGS: Clear. CARDIAC: S1 and S2 are normal, without any S3, S4 or murmurs. ABDOMEN: He has hypoactive bowel sounds. EXTREMITIES: Revealed no edema. NEUROLOGIC: Patient is sedated. LABORATORY AND X-RAY FINDINGS: EKG reveals atrial fibrillation with a fast ventricular response with diffuse ST segment changes. Abdominal pelvis CT revealed edematous changes of the distal stomach and proximal duodenum, small amount of free fluid in the right hemiabdomen. Brain CT reveals chronic small vessel ischemic changes of the white matter. Urine, blood, spinal fluid cultures have been negative thus far. White count 20,000, hemoglobin 12.0, hematocrit 35.4, platelets 204,000. PH 7.41, pCO2 of 27.0, pO2 of 98.6, sodium 146, potassium 3.5, chloride 116, carbon dioxide 18, BUN 25, creatinine 1.26. CK 968, CK-MB 4.3. Troponin I is normal. Cortisol is normal. TSH is normal. Magnesium 1.6, calcium is low at 7.2. IMPRESSION: 1. Atrial fibrillation with fast ventricular response. 2. Hypotension, some type of gastroenteritis of uncertain etiology. 3. Hypertension. 4. History of diabetes. PLAN: Patient will be maintained on amiodarone drip at this time. Pressors certainly may be needed. He will have an echocardiogram performed to assess left ventricular function. [facility]
[2017-11-03] MEDS: fentaNYL Citrate/PF 2,000 MCG in Sodium Chloride 0.9% 60 ML IV SCH ×2 (23:47→23:50)
[2017-11-04 05:11] LABS: #Basophils 0.1 thou/uL (0.0-0.2); #Eosinphils 0.3 thou/uL (0.0-0.7); #Lymphocytes 2.3 thou/uL (1.20-3.40); #Monocytes 1.5 thou/uL (0.11-0.59); #Neutrophils 12.6 thou/uL (1.40-6.50); %Basophils 0.6 % (0.0-1.0); %Eosinophils 1.8 % (0.0-10.0); %Lymphocytes 13.5 % (21.0-51.0); %Monocytes 8.9 % (0.0-10.0); %Neutrophils 75.1 % (42.0-75.0); Hemoglobin 10.9 g/dL (14.0-18.0); Mean Corpuscular HGB CONC 33.5 g/dL (32.0-36.0); Mean Corpuscular Hemoglobin 33.4 pg (27.0-31.0); Mean Corpuscular Volume 99.5 fl (80.0-94.0); Mean Platelet Volume 8.6 fL (7.4-10.4); Platelet Count 202 thou/uL (130-400); RBC Distribution Width 11.7 % (11.5-14.5); Red Blood Cell (RBC) Count 3.27 mill/uL (4.70-6.10); White Blood Cell (WBC) Count 16.7 thou/uL (4.8-10.8)
[2017-11-04 05:24] LABS: ALT (SGPT) 21 U/L (8-55); AST (SGOT) 22 U/L (5-34); Albumin 2.9 g/dL (3.4-4.8); Alkaline Phosphatase 37 U/L (40-150); Anion Gap 13 mmol/L (10-20); BUN (Urea Nitrogen) 22 mg/dL (8.4-25.7); Bilirubin, Total 0.8 mg/dL (0.2-1.2); CK (CPK) 532 U/L (30-200); Calc. Creatinine Clearance 58 mL/min (70-130); Calcium 7.1 mg/dL (7.8-10.44); Carbon Dioxide 20 mmol/L (23-31); Chloride 115 mmol/L (98-107); Estimated GFR-MDRD 62; Globulin 2.1 g/dL (2.4-3.5); Glucose 135 mg/dL (83-110); Magnesium 1.2 mg/dL (1.6-2.6); Phosphorus 1.5 mg/dL (2.3-4.7); Potassium 3.1 mmol/L (3.5-5.1); Sodium 145 mmol/L (136-145)
[2017-11-04] MEDS: Piperacillin-Tazo-Dextrose,Iso 3.375 GM in Premix Bag 1 BAG IVPB SCH ×3 (05:35→17:04)
[2017-11-04] MEDS: Potassium Chloride 40 MEQ in Premix Bag 1 BAG IVPB PRN (05:36)
[2017-11-04] MEDS: Propofol 1,000 MG/100 ML VIAL IV PRN ×2 (05:50→18:05)
[2017-11-04 07:49] LABS: ALV-art Gradient 77.375 (0-20); Actual Bicarbonate (HCO3a) 18.7 mEq/L (22-26); Base Excess (BEa) -5.4 mEq/L (0 (+/-) 2.5); CO2 Tension 31.7 mmHg (35.0-45.0); Hemoglobin (Hb) 10.8 g/dL (14.0-18.0); O2 Tension (PaO2) 98.7 mmHg (80.0-100.0); Puncture Site LB; pH, Arterial 7.39 (7.35-7.45)
--- NOTE | 2017-11-04 10:33 | OP ---
DATE OF PROCEDURE: 11/04/2017 PROCEDURE: Esophagogastroduodenoscopy (diagnostic). INDICATION: Abnormal GI imaging. DESCRIPTION OF PROCEDURE: After the risks and benefits were discussed with the patient's surrogate () including risks of bleeding, infection, perforation, reaction to anesthesia and/or pain, informed consent was obtained. The patient was currently in the ICU intubated and sedated, so additional sedation was not necessary via anesthesia support. Prior to the procedure, the OG tube was withdrawn to allow adequate passage of the standard gastroscope. The standard gastroscope was then advanced into the mouth with intubation of the esophagus, stomach, first and second portion of the intestines with the findings listed below. The patient tolerated the procedure well with no nadia-procedural complications. FINDINGS: DUODENUM: A large 3-4 cm clean based, shallow ulceration was seen in the duodenal bulb extending toward the duodenal sweep. It did not display any high risk stigmata of bleeding or active/recent bleeding. There was associated increased erythema surrounding it with scattered erosions also seen in the duodenal bulb. Normal appearing mucosa was seen in the second portion of the duodenum with no erosions, ulcerations, or mass lesions. STOMACH: Normal appearing mucosa was seen in the gastric body, antrum and incisura. Scattered patches of significant increased erythema and submucosal hemorrhage were seen in the proximal fundus along with a linear ulceration extending from the GE junction along the lesser curvature approximately 2-3 cm. There was no evidence of active/recent bleeding in this region. No hiatal hernia was seen on retroflexion. ESOPHAGUS: Normal appearing mucosa was seen in the proximal esophagus. Significant ulceration of the esophagus was seen in the mid and distal esophagus with the ulceration conforming to a circumferential pattern from approximately 42 cm to 37 cm. Linear ulcerations were then seen extending from this region with the maximum length of the linear ulcerations extending proximally from the circumferential ulceration to approximately 30 cm. There was no evidence of active/recent bleeding or mass lesions. IMPRESSION: 1. LA grade D, reflux mediated esophagitis with possible component of OG tube trauma in the distal and midesophagus. 2. Increased patches of mucosa erythema and linear ulceration extending from the GE junction into the lesser curvature consistent with OG tube trauma. 3. Large 3-4 cm shallow clean-based ulceration in the duodenal bulb, concerning for H. pylori versus NSAID ulceration. RECOMMENDATIONS: 1. Follow up with primary MICU team. 2. We would continue PPI 40 mg b.i.d. for the duration of the inpatient stay. 3. Would obtain H. pylori serology and if positive, would treat for H. pylori infection. 4. Would avoid all NSAIDs. 5. Would continue to trend hemoglobin and hematocrit and transfuse as necessary to maintain an hemoglobin and hematocrit of 7/21. 6. Consider Dobbhoff tube placement for enteral feedings when compared to OG tube considering the trauma seen on endoscopy today. MTDD
[2017-11-04] MEDS: Pantoprazole 40 MG VIAL IVP SCH ×2 (10:36→21:19)
[2017-11-04] MEDS: Enoxaparin Sodium 40 MG/0.4 ML SYRINGE SC SCH (10:36)
[2017-11-04] MEDS: Sodium Chloride 0.45% 1,000 ML IV SCH ×3 (10:51→21:20)
--- NOTE | 2017-11-04 12:42 | ADD-PRG ---
DATE OF SERVICE: 11/04/2017 This is an addendum to the note of Dr. Cole Heredia. Mr. Bahena is still on ventilatory support. His lungs sound fine. His abdomen is slightly distended, but otherwise nontender. His arterial blood gas this morning shows a pH 7.39, PCO2 of 31.7, pO2 of 98.7. He is on SIMV rate of 10 with an FIO2 of 30%, tidal volume 500. His stool studies so far all negative for infectious diarrhea and for C. diff. We will continue to m aintain IV fluids. Most of his electrolyte abnormalities have been corrected. GI is currently prepa ring for a bedside EGD.
--- NOTE | 2017-11-04 12:50 | PDOC.FM ---
- Subjective Subjective: Patient seen at beside, intubated. Nursing states there has been no acute event overnight except about 15 min of a fib that resolved without intervention. - Objective Vital Signs & Weight: Vital Signs (12 hours) Temp Pulse Resp BP Pulse Ox 11/04/17 12:00 98.5 F 11/04/17 11:12 70 111/61 11/04/17 10:00 33 H 11/04/17 08:00 98.1 F 13 11/04/17 07:39 68 113/65 11/04/17 07:31 98.1 F 69 19 96 11/04/17 05:59 16 11/04/17 04:00 98.8 F 17 11/04/17 02:27 78 11/04/17 02:00 16 Weight Admit Weight 72.575 kg Weight 72.6 kg Most Recent Monitor Data Heart Rate from ECG 73 NIBP 112/57 NIBP BP-Mean 63 Respiration from ECG 16 SpO2 98 I&O: 11/03/17 11/04/17 11/05/17 06:59 06:59 06:59 Intake Total 1716.7 3279.5 100 Output Total 2024 1320 308 Balance -308.3 1959.5 -208 Result Diagrams: 11/04/17 03:30 11/04/17 03:30 Phys Exam - Physical Examination -: Patient receiving EGD at this time, will add addenum with physical exam. Dx/Plan (1) Aseptic meningitis Code(s): G03.0 - NONPYOGENIC MENINGITIS Status: Acute (2) Diarrhea Code(s): R19.7 - DIARRHEA, UNSPECIFIED Status: Acute Qualifiers: Diarrhea type: unspecified type Qualified Code(s): R19.7 - Diarrhea, unspecified Plan: At this time, no clear cause. Will consider symptomatic treatment with imodium. Patient is still having liquid stool per rectal tube. (3) Gastroenteritis Code(s): K52.9 - NONINFECTIVE GASTROENTERITIS AND COLITIS, UNSPECIFIED Status : Acute Plan: All stool studies have come back negative Patient to get EGD today, will await result Apparently had colonoscopy 2 month ago for diarrhea. Will obtain records after speaking with family. (4) Hyperchloremic metabolic acidosis Code(s): E87.2 - ACIDOSIS Status: Acute Plan: Likely from diarrhea, will continue with 1/2 NS (5) Hyperparathyroidism, secondary Code(s): N25.81 - SECONDARY HYPERPARATHYROIDISM OF RENAL ORIGIN Status: Acute Plan: At this time, unclear etiology, will wait for vit D level. (6) Respiratory failure requiring intubation Code(s): J96.90 - RESPIRATORY FAILURE, UNSP, UNSP W HYPOXIA OR HYPERCAPNIA Status: Acute Plan: Patient is stating well, appreciate pulmonolgy consult Patient did well on sedation vacation, was originally intubated due to inability to protect airway May be extubated if he continue to do well off of sedation. (7) Seizure disorder Code(s): G40.909 - EPILEPSY, UNSP, NOT INTRACTABLE, WITHOUT STATUS EPILEPTICUS Status: Acute Plan: Has not had recurrence, may have been from electrolyte derangement. Will continue to monitor.
[2017-11-04] MEDS: Amiodarone HCl 450 MG, Admixture Fee 1 EACH in Dextrose 5% in Water 250 ML IVPB SCH ×3 (15:13)
--- NOTE | 2017-11-04 18:31 | RAD ---
EXAM: ONE VIEW ABDOMEN 11/04/17 HISTORY: Dobhoff feeding tube placement. COMPARISON: None. FINDINGS: One view abdomen demonstrates gaseous distention of the colon. Dobhoff feeding tube terminates over t he left upper quadrant. IMPRESSION: 1. Dobhoff feeding tube in the left upper quadrant, likely within the stomach. 2. Gaseous distention of the colon, unchanged from a previous CT. Based on that previous CT, air attenuation was noted all the way down to the level of the rectum. POS: MARCELLE
[2017-11-04] MEDS ORDERED: Digoxin 0.5 MG/2 ML AMP SLOW IVP SCH (19:45)
[2017-11-04 20:06] LABS: Anion Gap 14 mmol/L (10-20); BUN (Urea Nitrogen) 17 mg/dL (8.4-25.7); Calc. Creatinine Clearance 67 mL/min (70-130); Calcium 7.2 mg/dL (7.8-10.44); Carbon Dioxide 20 mmol/L (23-31); Chloride 114 mmol/L (98-107); Estimated GFR-MDRD 73; Glucose 108 mg/dL (83-110); Magnesium 1.4 mg/dL (1.6-2.6); Potassium 3.2 mmol/L (3.5-5.1); Sodium 145 mmol/L (136-145)
[2017-11-04 20:12] LABS: Phosphorus 1.5 mg/dL (2.3-4.7)
[2017-11-04] MEDS ORDERED: POTASSIUM CHLORIDE IVPB SCH (21:00)
[2017-11-04] MEDS ORDERED: MAGNESIUM SULFATE IVPB SCH (21:00)
[2017-11-04] MEDS ORDERED: [UNRECOGNIZED DRUG - OTHER] IVPB SCH (21:00)
[2017-11-04] MEDS ORDERED: POTASSIUM PHOSPHATE IVPB SCH (21:00)
[2017-11-04] MEDS: Lorazepam 2 MG/ML VIAL SLOW IVP PRN (21:18)
--- NOTE | 2017-11-04 23:17 | PRG ---
DATE OF SERVICE: 11/04/2017 SUBJECTIVE: Mr. Bahena remains mechanically ventilated. He was seen by Cardiology in consultation for atrial fibrillation yesterday. He has converted back to sinus rhythm with amiodarone. He is still sedated for mechanical ventilation. His heart rates fluctuated today between 70s and this evening as high as 130. Blood pressure this evening was 108/72, respiratory rates in the teens. His intake and output is positive 1958. OBJECTIVE: LUNGS: Remarkable for coarse equal breath sounds. HEART: Regular rhythm after he converted to sinus rhythm. ABDOMEN: Soft and distended. EXTREMITIES: Without asymmetry. IMAGING: Abdominal films were ordered today by the [facility] showing Dobbhoff tube and a dis tended colon. IMPRESSION: 1. Respiratory failure ? secondary to encephalopathy associated with viral meningitis. 2. Seizures, probably associated with viral meningitis. 3. Gastroenteritis, likely viral mediated. 4. Probable colonic ileus. 5. Atrial fibrillation, back to sinus rhythm. I suspect he will be in and out of atrial fibrillatio n. 6. Respiratory failure, currently not weanable. He needs to have multiple parameters stable before we extubate him. 7. Anemia with an elevated mean corpuscular volume do not worry about early myelodysplasia. 8. Hyperchloremic acidosis, not really a clinical issue. 9. Ongoing electrolyte abnormalities. He needs aggressive magnesium and phosphorus replacement. 10. Elevated liver enzymes that were really insignificant. 11. Hypoalbuminemia, most likely secondary to his diarrhea. PLAN: Continue supportive care. He is not weanable. Critical care time: 35 minutes.
[2017-11-05] MEDS: Piperacillin-Tazo-Dextrose,Iso 3.375 GM in Premix Bag 1 BAG IVPB SCH ×4 (00:22→18:17)
[2017-11-05 05:57] LABS: #Basophils 0.1 thou/uL (0.0-0.2); #Eosinphils 0.5 thou/uL (0.0-0.7); #Lymphocytes 2.1 thou/uL (1.20-3.40); #Neutrophils 8.6 thou/uL (1.40-6.50); %Basophils 0.5 % (0.0-1.0); %Eosinophils 4.4 % (0.0-10.0); %Lymphocytes 17.4 % (21.0-51.0); %Monocytes 7.8 % (0.0-10.0); Hemoglobin 10.6 g/dL (14.0-18.0); Mean Corpuscular HGB CONC 34.8 g/dL (32.0-36.0); Mean Corpuscular Hemoglobin 34.2 pg (27.0-31.0); Mean Corpuscular Volume 98.5 fl (80.0-94.0); Mean Platelet Volume 8.1 fL (7.4-10.4); Platelet Count 190 thou/uL (130-400); RBC Distribution Width 11.7 % (11.5-14.5); White Blood Cell (WBC) Count 12.3 thou/uL (4.8-10.8)
[2017-11-05 06:26] LABS: AST (SGOT) 18 U/L (5-34); Bilirubin, Total 0.3 mg/dL (0.2-1.2); Chloride 113 mmol/L (98-107); Potassium 3.3 mmol/L (3.5-5.1); Sodium 142 mmol/L (136-145)
[2017-11-05 06:39] LABS: ALT (SGPT) 18 U/L (8-55); Albumin 2.8 g/dL (3.4-4.8); Alkaline Phosphatase 31 U/L (40-150); Anion Gap 11 mmol/L (10-20); BUN (Urea Nitrogen) 13 mg/dL (8.4-25.7); Calc. Creatinine Clearance 67 mL/min (70-130); Carbon Dioxide 22 mmol/L (23-31); Estimated GFR-MDRD 74; Globulin 2.2 g/dL (2.4-3.5); Glucose 169 mg/dL (83-110)
[2017-11-05] MEDS: Amiodarone HCl 450 MG, Admixture Fee 1 EACH in Dextrose 5% in Water 250 ML IVPB SCH ×3 (06:51)
[2017-11-05] MEDS: Sodium Chloride 0.45% 1,000 ML IV SCH ×2 (06:52→16:11)
[2017-11-05] MEDS: Propofol 1,000 MG/100 ML VIAL IV PRN (06:52)
[2017-11-05] MEDS ORDERED: Potassium Chloride 40 MEQ, Magnesium Sulfate 1 GM in Sodium Chloride 0.9% 250 ML 250 ML IVPB SCH (07:00)
[2017-11-05 07:11] LABS: Actual Bicarbonate (HCO3a) 20.9 mEq/L (22-26); Base Excess (BEa) -2.9 mEq/L (0 (+/-) 2.5); CO2 Tension 32.8 mmHg (35.0-45.0); Hematocrit-ABG 31.2 % (42.0-52.0); Hemoglobin (Hb) 10.3 g/dL (14.0-18.0); Puncture Site RRA; pH, Arterial 7.42 (7.35-7.45)
[2017-11-05] MEDS: Pantoprazole 40 MG VIAL IVP SCH ×2 (08:45→21:29)
[2017-11-05] MEDS: Enoxaparin Sodium 40 MG/0.4 ML SYRINGE SC SCH (08:45)
[2017-11-05] MEDS ORDERED: Digoxin 0.5 MG/2 ML AMP SLOW IVP SCH (08:45)
--- NOTE | 2017-11-05 08:55 | RAD ---
RADIOGRAPH CHEST 1 VIEW: DATE: 11-05-17 TIME: 5:07 a.m. HISTORY: 72-year-old male with respiratory distress. COMPARISON: 11-03-17 at 5:35 a.m. FINDINGS: There are no air space densities, pulmonary edema, pneumothorax, or cardiomegaly. The lateral costop hrenic angles are sharp. Endotracheal tube and right neck central line remain. The NG tube has been r eplaced with a Dobbhoff feeding tube, with distal tip in the proximal stomach, fundus. IMPRESSION: 1. No acute cardiopulmonary findings. 2. Interval exchange of NG tube for Dobbhoff feeding tube, with distal tip in the proximal stomach. 3. Endotracheal tube and the right sided central vascular catheter remain. ron POS: JESSICA
[2017-11-05] MEDS ORDERED: POTASSIUM PHOSPHATE IVPB SCH ×2 (11:00→16:00)
[2017-11-05] MEDS ORDERED: SODIUM CHLORIDE 0.9% IVPB SCH (11:00)
[2017-11-05] MEDS ORDERED: MAGNESIUM SULFATE IVPB SCH ×2 (11:00→16:00)
--- NOTE | 2017-11-05 11:33 | PDOC.FM ---
- Subjective Subjective: Patient is found intubated, on light sedation. His states that he did not give any indication he is in discomfort. Nursing stated he went into afib at approximately 0700 today. He was given digoxin after cardiology was alerted of this. He continues to be in afib with rvr and still having loose stool. - Objective MAR Reviewed: Yes Vital Signs & Weight: Vital Signs (12 hours) Temp Pulse Resp BP Pulse Ox 11/05/17 10:51 90 120/67 11/05/17 10:00 20 11/05/17 08:45 135 H 11/05/17 08:14 135 H 126/79 11/05/17 08:00 98.8 F 16 11/05/17 07:19 98.8 F 83 20 98 11/05/17 06:00 18 11/05/17 04:00 99.6 F 19 11/05/17 02:05 100 18 95 11/05/17 02:00 17 11/05/17 00:00 99.4 F 16 Weight Admit Weight 72.575 kg Weight 72.6 kg Most Recent Monitor Data Heart Rate from ECG 88 NIBP 117/63 NIBP BP-Mean 70 Respiration from ECG 18 SpO2 98 I&O: 11/04/17 11/05/17 11/06/17 06:59 06:59 06:59 Intake Total 3279.5 3451.9 Output Total 1320 2083 459 Balance 1959.5 1368.9 -459 Result Diagrams: 11/05/17 05:25 11/05/17 05:25 Phys Exam - Physical Examination Constitutional: NAD HEENT: moist MMs Neck: supple Respiratory: no wheezing, clear to auscultation bilateral Tachycardic, irregular Mild distention, no guarding or rigidity. Musculoskeletal: no edema Sedated, intubated Skin: no rash Dx/Plan (1) Aseptic meningitis Code(s): G03.0 - NONPYOGENIC MENINGITIS Status: Acute Plan: Labwork was drawn for this, but LP and clinical picture does not suggest meningitis. He is on acyclovir to cover. (2) Diarrhea Code(s): R19.7 - DIARRHEA, UNSPECIFIED Status: Acute Qualifiers: Diarrhea type: unspecified type Qualified Code(s): R19.7 - Diarrhea, unspecified Plan: At this time, no clear cause. Cdiff has come back negative twice. Consider antidirrheal agent. His stated that this has worked in the past at home. WBC is improving with time. (3) Gastroenteritis Code(s): K52.9 - NONINFECTIVE GASTROENTERITIS AND COLITIS, UNSPECIFIED Status : Acute Plan: EGD came back with shallow ulcer, possible h. pylori. Will get h. pylori antigen and treat as needed Dobhoff tube was placed to continue feeding . (4) Hyperchloremic metabolic acidosis Code(s): E87.2 - ACIDOSIS Status: Acute Plan: Likely from diarrhea, will continue with 1/2 NS for hydration. (5) Hyperparathyroidism, secondary Code(s): N25.81 - SECONDARY HYPERPARATHYROIDISM OF RENAL ORIGIN Status: Acute Plan: At this time, unclear etiology, will wait for vit D level. (6) Respiratory failure requiring intubation Code(s): J96.90 - RESPIRATORY FAILURE, UNSP, UNSP W HYPOXIA OR HYPERCAPNIA Status: Acute Plan: Patient is stating well, appreciate pulmonolgy consult Patient did well on sedation vacation, was originally intubated due to inability to protect airway Will follow with pulmonology recs on extubation. (7) Seizure disorder Code(s): G40.909 - EPILEPSY, UNSP, NOT INTRACTABLE, WITHOUT STATUS EPILEPTICUS Status: Acute Plan: Has not had recurrence, may have been from electrolyte derangement. Will continue to monitor. - Plan Plan: At this time, still unclear cause for his diarrhea. Infectious screen have come back negative. Could be viral in nature, but is longer duration then expected. His continued electrolyte derangement can certainly be from the diarrhea. Will follow with GI recs on this.
--- NOTE | 2017-11-05 11:46 | ADD-PRG ---
This is an addendum to the note of Dr. Cole Heredia. Mr. Bahena is sedated on the ventilator. He had a repeat chest x-ray this morning with no acute cardi opulmonary findings noted. His blood pressure is currently 117/63 with a MAP of 70. White count is 12,300, hemoglobin 10.6, hematocrit 30.5 with an MCV of 98.5. Blood cultures, urine cultures are no growth at 48 hours. He redeveloped during the night, atrial fibrillation with rapid ventricular response. He is on amiod arone drip. Cardiology was called and he was given a dose of intravenous digoxin, but he is again in rapid ventricular response. We will await the recommendations of Cardiology. Continue to follow wi th the flour broker.
--- NOTE | 2017-11-05 12:34 | PRG ---
DATE OF SERVICE: 11/05/2017 Mr. Bahena is awake. He nods appropriately, moves all of his extremities. This is the most alert he has been since he has been here. PHYSICAL EXAMINATION: VITAL SIGNS: His heart rate is 90. Blood pressure 120/67, respiratory rate 18, oximetry is 98. LUNGS: Remarkable for coarse equal breath sounds. HEART: Regular rhythm. ABDOMEN: Abdomen is soft and nontender. He is still having copious amounts of diarrhea. Intake and output is positive 1368. White count 12.3, hemoglobin 10.6, platelets 190. Sodium 142, potassium 3.3, chloride 113, bicarbonate 22, BUN 13, creatinine 0.99. He could probably use another 44 mEq of potassium phosphate given that his phosphorus is 2. Magnesium is still low at 2.0. I anticipate that he will have more magnesium losses and potassium lo sses so will give him more magnesium today as well. From a pulmonary standpoint, he appears to be stabilizing. The reason for intubation was his altered mental status. He has no pulmonary infiltrates. His blood gas shows a pH 7.42, CO2 32, pO2 of 98. I think it is reasonable at this time to decrease ventilatory support, hoping for weaning and eventua l extubation perhaps this weekend. It would be nice if we could get control of his diarrhea, but melly t should not be a reason to keep him intubated. Critical care time was 30 minutes. ADDITIONAL DIAGNOSES: 1. Include probable viral meningitis leading to 1 seizure when he has over in [place]. 2. Probable viral enteritis. 3. Probable irritable bowel with diarrhea for his entire life according to his . I met with her at the bedside and answered all of her questions. 4. Atrial fibrillation this admission, treated with amiodarone. 5. History of diabetes and hypertension.
[2017-11-05] MEDS ORDERED: [UNRECOGNIZED DRUG - OTHER] IVPB SCH (16:00)
[2017-11-05] MEDS: Metoprolol Tartrate 5 MG/5 ML VIAL IVP SCH (16:10)
[2017-11-05] MEDS: Lorazepam 2 MG/ML VIAL SLOW IVP PRN (17:31)
--- NOTE | 2017-11-05 23:57 | PRG ---
DATE OF SERVICE: 11/05/2017 REASON FOR CONSULTATION: Diarrhea, abnormal GI imaging. SUBJECTIVE: No acute events or problems overnight. Today, the patient with minimal sedation, appears more awake and alert, is able respond to questioning with gestures and shaking his head, cannot contribute to any other further questioning. He does continue to have increased watery output from his bowel management system. Per nursing staff, no melena, hematochezia, or hematemesis. OBJECTIVE: VITAL SIGNS: Temperature 98.6, pulse 129, blood pressure 191/55, respiratory rate 22, satting 96% on mechanical ventilation. GENERAL: The patient is alert, but unable to respond to orientation questions due to intubation. NECK: Supple. No JVD noted. CARDIOVASCULAR: Regular rate and rhythm with no discernible murmurs, gallops, or rubs. RESPIRATORY: Coarse breath sounds auscultated in all lung connell consistent with mechanical ventilation. ABDOMEN: Normal active bowel sounds, soft, moderate distention. No grimacing from the patient upon palpation in all abdominal quadrants, tympanic to percussion. EXTREMITIES: No cyanosis, clubbing, or edema. Some ecchymosis noted from surrounding IV line insertions. LABORATORY DATA: CBC with white blood cell count of 12.3, hemoglobin of 10.6, hematocrit of 30.5, platelets 190. Chemistry with sodium of 142, potassium 3.3 , chloride 113, carbon dioxide 22, BUN 13, creatinine 0.99, glucose 169. IMAGING STUDIES: Abdominal x-ray obtained on 11/04/2017 showing gaseous distension of the colon, unchanged from previous CT, here attenuation was noted all the way down to the colorectum. ASSESSMENT AND PLAN: The patient is a 72-year-old male with past medical history of hypertension, diabetes, gastroesophageal reflux disease, and irritable bowel syndrome with diarrhea predominants, presenting with increased watery diarrhea and electrolyte abnormalities as well as abnormal imaging via upper GI tract and system with peptic ulcer disease. Diarrhea: The patient is presenting with significant diarrhea prior to admission that was felt to be contributing to the significant electrolyte abnormality seen at the referring institution with resuscitation within the last 24-48 hours, his electrolytes have been more stable, but will still require significant supplementation of both magnesium and potassium, presumably from GI/diarrhea losses. Stool workup for infectious etiology has thus far been negative including campylobacter, C. diff, E. coli, salmonella, and Shigella. Testing for Clostridium difficile has been negative x2 as well. At this point, the etiology of his diarrhea is unclear, but could be caused by a viral etiology with rotavirus and [place] being more likely culprits with the elevation of PTH and serum calcium, a possible paraneoplastic syndrome is also under consideration. 1. We will continue IV fluids and potassium/magnesium supplementation as we were doing. 2. Could consider addition of low dose loperamide to regimen to slow down GI/ diarrhea losses. 3. We would not recommend empiric treatment of Clostridium difficile at this time, given 2 negative results and high sensitivity/specificity with those examinations. Abnormal GI imaging: The patient is presenting with CT of abdomen and pelvis on admission showing mucosal prominence and adjacent fluid/stranding within the distal stomach in first and second portion of the duodenum. EGD evaluation on 11/04/2017 showed a large duodenal bulb ulceration without high-risk stigmata of bleeding as well as submucosal hemorrhage and a linear ulceration in the stomach consistent with OG tube trauma. Significant ulceration was also seen in the distal esophagus consistent with recent history of repeated episodes of vomiting and exposure to gastric acid. KUB obtained on 11/04/2017 showed significant distention of the colon that was also noted on the recent CT scan and unchanged in terms of severity. Currently with an approximate 10-cm dilation that could be consistent with a colonic ileus due to critical illness. RECOMMENDATIONS: 1. Continue PPI daily as we are doing b.i.d. for peptic ulcer disease, ulceration within the stomach and distal esophagus. 2. We would continue to monitor with daily KUB of the abdomen to access any changing of colonic distention. 3. Administration of neostigmine could be considered but cautioned due to his recent onset of atrial fibrillation with RVR. We will continue to follow. Please call with any questions. [facility]
[2017-11-06] MEDS: Piperacillin-Tazo-Dextrose,Iso 3.375 GM in Premix Bag 1 BAG IVPB SCH ×3 (00:13→13:09)
[2017-11-06] MEDS: Metoprolol Tartrate 5 MG/5 ML VIAL IVP SCH ×3 (00:14→15:57)
[2017-11-06] MEDS: Propofol 1,000 MG/100 ML VIAL IV PRN ×2 (02:00→22:07)
[2017-11-06] MEDS: Amiodarone HCl 450 MG, Admixture Fee 1 EACH in Dextrose 5% in Water 250 ML IVPB SCH ×6 (02:00→18:00)
[2017-11-06 02:34] LABS: #Basophils 0.1 thou/uL (0.0-0.2); #Eosinphils 0.8 thou/uL (0.0-0.7); #Lymphocytes 2.5 thou/uL (1.20-3.40); %Basophils 0.8 % (0.0-1.0); %Eosinophils 6.2 % (0.0-10.0); %Lymphocytes 19.9 % (21.0-51.0); %Monocytes 8.5 % (0.0-10.0); %Neutrophils 64.6 % (42.0-75.0); Hemoglobin 10.4 g/dL (14.0-18.0); Mean Corpuscular HGB CONC 34.4 g/dL (32.0-36.0); Mean Corpuscular Hemoglobin 33.9 pg (27.0-31.0); Mean Corpuscular Volume 98.6 fl (80.0-94.0); Mean Platelet Volume 7.9 fL (7.4-10.4); Platelet Count 199 thou/uL (130-400); RBC Distribution Width 11.6 % (11.5-14.5); Red Blood Cell (RBC) Count 3.06 mill/uL (4.70-6.10); White Blood Cell (WBC) Count 12.3 thou/uL (4.8-10.8)
[2017-11-06] MEDS: Sodium Chloride 0.45% 1,000 ML IV SCH ×3 (02:56→22:07)
[2017-11-06 03:08] LABS: ALT (SGPT) 19 U/L (8-55); AST (SGOT) 22 U/L (5-34); Albumin 2.7 g/dL (3.4-4.8); Alkaline Phosphatase 35 U/L (40-150); Anion Gap 11 mmol/L (10-20); BUN (Urea Nitrogen) 8 mg/dL (8.4-25.7); Bilirubin, Total 0.4 mg/dL (0.2-1.2); Calc. Creatinine Clearance 72 mL/min (70-130); Calcium 7.3 mg/dL (7.8-10.44); Carbon Dioxide 23 mmol/L (23-31); Chloride 111 mmol/L (98-107); Estimated GFR-MDRD 80; Globulin 2.2 g/dL (2.4-3.5); Glucose 151 mg/dL (83-110); Magnesium 1.7 mg/dL (1.6-2.6); Phosphorus 2.8 mg/dL (2.3-4.7); Potassium 3.5 mmol/L (3.5-5.1); Protein, Total 4.9 g/dL (5.8-8.1); Sodium 141 mmol/L (136-145)
[2017-11-06 03:26] LABS: Digoxin 1.02 ng/mL (0.8-2.0)
[2017-11-06] MEDS: Lorazepam 2 MG/ML VIAL SLOW IVP PRN ×3 (07:19→18:24)
[2017-11-06] MEDS ORDERED: Dextrose 5% in Water 1,000 ML IV PRN (07:31)
[2017-11-06] MEDS ORDERED: Dextrose 50% Abboject 50 ML SYRINGE SLOW IVP PRN (07:31)
--- NOTE | 2017-11-06 08:13 | PDOC.FM ---
- Subjective Subjective: Patient was found awake, off of sedation, awake and following command. He remains intubated with rectal tube still in. Overnight, he had episode of a fib going up to 150-160 apparently. Nursing tried to contact cardiology. A dose of IV metorolol given. 25 min later, he went into asystole, then junctional rhythm before converting to NSR without other intervention. - Objective MAR Reviewed: Yes Vital Signs & Weight: Vital Signs (12 hours) Temp Pulse Resp BP 11/06/17 07:37 99.3 F 11/06/17 07:02 74 134/70 11/06/17 06:00 22 H 11/06/17 04:00 100.1 F H 20 11/06/17 02:22 119 H 11/06/17 02:00 19 11/06/17 00:00 100.8 F H 20 11/05/17 22:17 138 H 11/05/17 22:00 20 Weight Admit Weight 72.575 kg Weight 72.6 kg Most Recent Monitor Data Heart Rate from ECG 72 NIBP 134/70 NIBP BP-Mean 96 Respiration from ECG 22 SpO2 99 I&O: 11/05/17 11/06/17 11/07/17 06:59 06:59 06:59 Intake Total 3451.9 4640.2 Output Total 2163 1959 80 Balance 1368.9 2681.2 -80 Result Diagrams: 11/06/17 01:00 11/06/17 01:00 <GiovannaCole M - Last Filed: 11/06/17 08:17> - Objective Vital Signs & Weight: Vital Signs (12 hours) Temp Pulse Resp BP Pulse Ox 11/06/17 14:49 88 135/69 11/06/17 14:00 15 11/06/17 13:07 73 119/65 11/06/17 12:00 98.8 F 17 11/06/17 11:53 77 124/58 L 11/06/17 10:00 18 11/06/17 09:15 65 114/61 11/06/17 08:00 21 H 11/06/17 07:37 99.3 F 87 22 H 95 11/06/17 07:02 74 134/70 11/06/17 06:00 22 H Weight Admit Weight 72.575 kg Weight 72.6 kg Most Recent Monitor Data Heart Rate from ECG 86 NIBP 155/83 NIBP BP-Mean 94 Respiration from ECG 27 SpO2 95 I&O: 11/05/17 11/06/17 11/07/17 06:59 06:59 06:59 Intake Total 3451.9 4640.2 40 Output Total 3 9 847 Balance 1368.9 2681.2 -807 Result Diagrams: 11/06/17 01:00 11/06/17 01:00 <Nida Giraldo - Last Filed: 11/06/17 16:39> Phys Exam - Physical Examination Constitutional: NAD HEENT: moist MMs Neck: supple Respiratory: no wheezing Cardiovascular: RRR Gastrointestinal: soft, positive bowel sounds Mildly distended Musculoskeletal: no edema Neurological: moves all 4 limbs Lymphatic: no nodes Psychiatric: normal affect Skin: no rash <GiovannaCole - Last Filed: 11/06/17 08:17> Dx/Plan (1) Gastroenteritis Code(s): K52.9 - NONINFECTIVE GASTROENTERITIS AND COLITIS, UNSPECIFIED Status : Acute Plan: EGD came back with shallow ulcer, possible h. pylori. May be viral infection per GI Will get h. pylori antigen and treat as needed Dobhoff tube was placed to continue feeding Consider IBS, but will not give imodium while infectious cause is on differential. (2) Hyperchloremic metabolic acidosis Code(s): E87.2 - ACIDOSIS Status: Acute Plan: Likely from diarrhea, will continue with 1/2 NS for hydration. (3) Hyperparathyroidism, secondary Code(s): N25.81 - SECONDARY HYPERPARATHYROIDISM OF RENAL ORIGIN Status: Acute Plan: At this time, unclear etiology, will wait for vit D level. Ca when corrected for albumin is normal. (4) Respiratory failure requiring intubation Code(s): J96.90 - RESPIRATORY FAILURE, UNSP, UNSP W HYPOXIA OR HYPERCAPNIA Status: Acute Plan: Patient is stating well, appreciate pulmonolgy consult Patient did well on sedation vacation, was originally intubated due to inability to protect airway He is awake and interactive today off of sedation Will follow with pulmonology recs on extubation. (5) Seizure disorder Code(s): G40.909 - EPILEPSY, UNSP, NOT INTRACTABLE, WITHOUT STATUS EPILEPTICUS Status: Acute Plan: Has not had recurrence, may have been from electrolyte derangement. Will continue to monitor. (6) Aseptic meningitis Code(s): G03.0 - NONPYOGENIC MENINGITIS Status: Acute Plan: Labwork was drawn for this, but LP and clinical picture does not suggest meningitis. He is on acyclovir to cover, lower on differential. (7) Afib Code(s): I48.91 - UNSPECIFIED ATRIAL FIBRILLATION Status: Acute Plan: Appreciate cardiology recommendation. He did have an event overnight, see subjective. It has resolved at this time spontaneously. Echo was done prior finding eF 60-65 and dCHF. He is getting lovenox. <Cole Heredia - Last Filed: 11/06/17 08:17> Attending Addendum - Attending Addendum I personally evaluated the patient and discussed the management with Dr. Heredia. I agree with the History, Examination, Assessment and Plan documented above with any addition or exceptions noted below. The patient went into atrial fibrillation with RVR overnight. He was given metoprolol which allowed him to convert to a sinus rhythm. The patient's abdomen remains distended, will discussoptions for treatment with GI. <Nida Giraldo - Last Filed: 11/06/17 16:39>
[2017-11-06] MEDS: Enoxaparin Sodium 40 MG/0.4 ML SYRINGE SC SCH (08:55)
[2017-11-06] MEDS: Pantoprazole 40 MG VIAL IVP SCH ×2 (08:56→19:47)
--- NOTE | 2017-11-06 08:59 | RAD ---
FRONTAL VIEW ABDOMEN SERIES: COMPARISON: 11/04/17. INDICATION: Distended colon. FINDINGS: There remains marked distention of air-filled colon seen throughout the abdomen as well as air-filled bowel seen within the pelvis. Feeding tube is grossly stable in location with metallic stylette ove rlying the left upper quadrant. IMPRESSION: Persistent prominent gaseous distention of bowel. POS: MARCELLE
[2017-11-06] MEDS: HumaLOG 300 UNITS/3 ML VIAL SC PRN (10:18)
--- NOTE | 2017-11-06 10:49 | RAD ---
PORTABLE CHEST: History Dyspnea. CCU followup. COMPARISON: 11/05/17. FINDINGS: ET tube, NG tube, and central line unchanged. Lungs appear well aerated. No focal infiltrate or con solidation. IMPRESSION: No acute interval change. POS: [facility]
[2017-11-06] MEDS ORDERED: Magnesium Sulfate 4 GM in Sodium Chloride 0.9% 250 ML 250 ML IVPB SCH (13:00)
[2017-11-06] MEDS ORDERED: Potassium Phosphate 30 MMOL in Sodium Chloride 0.9% 500 ML IVPB SCH (13:00)
[2017-11-06] MEDS: Calcium Chloride 13.6 MEQ in Sodium Chloride 0.9% 100 ML IVPB SCH ×2 (13:09→18:20)
--- NOTE | 2017-11-06 13:39 | PRG ---
DATE OF SERVICE: 11/06/2017 SERVICE: Pulmonary Medicine. INTERVAL HISTORY: The patient is doing really well from a respiratory standpoint. He is breathing c omfortably on mechanical ventilation. He is awake and alert. He is oriented. He overnight had a co uple episodes of sinus pauses with junctional escape rhythms. He is also being going in and out of t achyarrhythmia. Cardiology is yet to see him. That being said, I would like to give him a little bi t of neostigmine. If he might be able to tolerate this from cardiology's perspective, we will go ahe ad and proceed with that today. These two things are preventing me from considering him for extubati on. I do think his lungs are perfectly healthy to tolerate having the tube out, but I do want to res olve these 2 issues first. PHYSICAL EXAMINATION: VITAL SIGNS: Afebrile, pulse 98, blood pressure 144/86, respirations 22, saturation 97% on 29% FIO2 and a PEEP of 5. GENERAL: The patient is awake, alert, in no apparent distress. LUNGS: Excellent air entry. There is no prolonged expiratory phase or wheezing. Minimal dependent crackles are present. No rhonchi or wheezing is appreciated. HEART: Normal rate, regular. ABDOMEN: Soft. Distended. I am told that is slightly worse than yesterday. No rebound or guarding is present. Bowel sounds are hypoactive. MUSCULOSKELETAL: No cyanosis or clubbing. There is no pitting in the bilateral lower extremities. NEUROLOGIC: Grossly nonfocal. LABORATORY DATA: WBC 12.3, hemoglobin 10.4. Platelets 199,000. Basic metabolic profile is unremark able except for potassium of 3.5. Despite aggressive magnesium replacement yesterday, it has actuall y dropped to 1.7. Phosphorus is 2.8 today. Liver function studies are otherwise unremarkable, essen burt. Stool culture is growing some yeast species. Outside of this, multiple stool studies are al l negative, this includes lactoferrin. IMAGING: Chest x-ray demonstrates right-sided IJ central venous catheter is in good position. Endot caitlin tube terminates to 3 cm above the amada. Enteric catheter courses below the level of the di aphragm and it is region of the stomach. No acute cardiopulmonary abnormalities otherwise identified except for little upper fluid in the fissure. ASSESSMENT: 1. Acute hypoxic respiratory failure. 2. Atrial fibrillation, paroxysmal. 3. Sinus pauses with junctional escape rhythm. 4. Colon distention with chronic diarrhea. 5. Possible viral enteritis/meningitis. 6. Recent seizure. PLAN: The patient will remain on mechanical ventilation for the time being. We need to clarify his heart and GI issue. If Cardiology allows me to, we will give him a dose of neostigmine. Otherwise, supportive measures will be continued. I have aggressively replaced potassium, magnesium, calcium, and phosphorus once again. CRITICAL CARE TIME: 30 minutes.
--- NOTE | 2017-11-06 16:17 | PRG ---
DATE OF SERVICE: 11/06/2017 SUBJECTIVE: The patient denies any abdominal pain. He has had a large amount of output via his rect al tube. OBJECTIVE: VITAL SIGNS: Pulse is 87, respiratory rate 25, blood pressure 135/69, temperature 98.8. CHEST: Clear. CARDIOVASCULAR: Regular rate and rhythm. ABDOMEN: Distended, diffusely tympanitic and taut. Patient is presently sitting up. He has hypoact sarah bowel sounds. LABORATORY DATA: Shows white blood cell count 12.3, hemoglobin 10.4, hematocrit 30.2. Chemistries s how glucose 151, calcium 7.3, alkaline phosphatase 35, total protein 49, albumin 27. Stool for C. di fficile is negative. Abdominal films show a distended colon. ASSESSMENT: 1. Obese. 2. Duodenal ulcer. 3. Reflux. 4. Respiratory failure. 5. Atrial fibrillation. RECOMMENDATIONS: 1. Neostigmine would be possibly beneficial in this situation if not contraindicated from a cardiac and pulmonary standpoint. Discussing this with Dr. Restrepo, it seems to be okay. He will discuss [facility] Cardiology. 2. If neostigmine is not possible, then may consider a decompression tube placement.
[2017-11-06] MEDS ORDERED: Piperacillin-Tazo-Dextrose,Iso 3.375 GM in Sodium Chloride 0.9% 100 ML IVPB SCH (18:00)
[2017-11-06] MEDS: Piperacillin/Tazobactam 3.375 GM in Sodium Chloride 0.9% 100 ML IVPB SCH (18:28)
[2017-11-07] MEDS: Piperacillin/Tazobactam 3.375 GM in Sodium Chloride 0.9% 100 ML IVPB SCH ×5 (00:29→23:30)
[2017-11-07] MEDS: HumaLOG 300 UNITS/3 ML VIAL SC PRN (04:33)
[2017-11-07 05:01] LABS: #Eosinphils 0.8 thou/uL (0.0-0.7); #Lymphocytes 2.2 thou/uL (1.20-3.40); #Monocytes 0.9 thou/uL (0.11-0.59); #Neutrophils 7.8 thou/uL (1.40-6.50); %Basophils 0.3 % (0.0-1.0); %Eosinophils 6.9 % (0.0-10.0); %Lymphocytes 18.7 % (21.0-51.0); %Monocytes 7.8 % (0.0-10.0); %Neutrophils 66.4 % (42.0-75.0); Hemoglobin 9.1 g/dL (14.0-18.0); Mean Corpuscular HGB CONC 34.5 g/dL (32.0-36.0); Mean Corpuscular Hemoglobin 34.2 pg (27.0-31.0); Mean Corpuscular Volume 99.1 fl (80.0-94.0); Mean Platelet Volume 7.8 fL (7.4-10.4); Platelet Count 198 thou/uL (130-400); RBC Distribution Width 11.7 % (11.5-14.5); Red Blood Cell (RBC) Count 2.68 mill/uL (4.70-6.10); White Blood Cell (WBC) Count 11.7 thou/uL (4.8-10.8)
[2017-11-07 05:23] LABS: ALT (SGPT) 21 U/L (8-55); AST (SGOT) 22 U/L (5-34); Albumin 2.4 g/dL (3.4-4.8); Alkaline Phosphatase 31 U/L (40-150); Anion Gap 9 mmol/L (10-20); BUN (Urea Nitrogen) 7 mg/dL (8.4-25.7); Bilirubin, Total 0.3 mg/dL (0.2-1.2); Calc. Creatinine Clearance 71 mL/min (70-130); Calcium 7.9 mg/dL (7.8-10.44); Carbon Dioxide 25 mmol/L (23-31); Chloride 109 mmol/L (98-107); Estimated GFR-MDRD 78; Globulin 2.2 g/dL (2.4-3.5); Glucose 162 mg/dL (83-110); Magnesium 1.6 mg/dL (1.6-2.6); Phosphorus 2.9 mg/dL (2.3-4.7); Potassium 3.4 mmol/L (3.5-5.1); Protein, Total 4.6 g/dL (5.8-8.1); Sodium 140 mmol/L (136-145)
[2017-11-07] MEDS: Propofol 1,000 MG/100 ML VIAL IV PRN ×2 (05:39→10:52)
[2017-11-07] MEDS: Potassium Chloride 40 MEQ in Premix Bag 1 BAG IVPB PRN (05:39)
[2017-11-07] MEDS: Amiodarone HCl 450 MG, Admixture Fee 1 EACH in Dextrose 5% in Water 250 ML IVPB SCH ×6 (08:48→20:09)
[2017-11-07] MEDS: Pantoprazole 40 MG VIAL IVP SCH ×2 (08:48→20:09)
[2017-11-07] MEDS: Enoxaparin Sodium 40 MG/0.4 ML SYRINGE SC SCH (08:48)
[2017-11-07] MEDS: Sodium Chloride 0.45% 1,000 ML IV SCH ×2 (08:48→13:56)
--- NOTE | 2017-11-07 08:56 | PDOC.FM ---
- Subjective Subjective: Patient found intubated, sedated at this time. - Objective MAR Reviewed: Yes Vital Signs & Weight: Vital Signs (12 hours) Temp Pulse Resp BP Pulse Ox 11/07/17 08:00 98.5 F 16 11/07/17 06:39 68 119/60 11/07/17 06:37 65 15 99 11/07/17 06:00 24 H 11/07/17 04:00 18 11/07/17 03:00 98.5 F 11/07/17 02:11 67 11/07/17 02:10 68 18 100 11/07/17 02:00 18 11/07/17 00:00 98.6 F 20 11/06/17 22:49 73 11/06/17 22:48 73 18 99 11/06/17 22:00 19 Weight Admit Weight 72.6 kg Weight 72.6 kg Most Recent Monitor Data Heart Rate from ECG 61 NIBP 114/52 NIBP BP-Mean 60 Respiration from ECG 18 SpO2 99 I&O: 11/06/17 11/07/17 11/08/17 06:59 06:59 06:59 Intake Total 4640.2 5142 30 Output Total 3469 2978 300 Balance 2681.2 2164 -270 Result Diagrams: 11/07/17 04:30 11/07/17 04:30 <Cole Heredia M - Last Filed: 11/07/17 08:54> - Objective Vital Signs & Weight: Vital Signs (12 hours) Temp Pulse Resp BP Pulse Ox 11/07/17 16:00 98.5 F 11/07/17 13:25 73 115/59 L 11/07/17 13:22 72 28 H 98 11/07/17 12:51 67 122/60 11/07/17 12:00 98.6 F 26 H 11/07/17 10:00 20 11/07/17 09:52 60 110/52 L 11/07/17 09:50 59 L 19 100 11/07/17 09:00 98.5 F 11/07/17 08:00 98.5 F 83 20 99 11/07/17 06:39 68 119/60 11/07/17 06:37 65 15 99 11/07/17 06:00 24 H Weight Admit Weight 72.6 kg Weight 72.6 kg Most Recent Monitor Data Heart Rate from ECG 76 NIBP 135/77 NIBP BP-Mean 89 Respiration from ECG 22 SpO2 99 I&O: 11/06/17 11/07/17 11/08/17 06:59 06:59 06:59 Intake Total 4640.2 5142 190 Output Total 1758 2978 1780 Balance 2681.2 2164 -1590 Result Diagrams: 11/07/17 04:30 11/07/17 04:30 <Nida Giraldo - Last Filed: 11/07/17 17:15> Phys Exam - Physical Examination Constitutional: NAD HEENT: moist MMs Neck: no nodes Respiratory: no wheezing Cardiovascular: RRR, no significant murmur Gastrointestinal: soft, positive bowel sounds Mild distention does not appear increased from yesterday Musculoskeletal: no edema Lymphatic: no nodes Deviation from normal: sedated/intubated Skin: no rash <GiovannaCole - Last Filed: 11/07/17 08:54> Dx/Plan (1) Gastroenteritis Code(s): K52.9 - NONINFECTIVE GASTROENTERITIS AND COLITIS, UNSPECIFIED Status : Acute Plan: EGD came back with shallow ulcer, possible h. pylori. May be viral infection per GI Will get h. pylori antigen and treat as needed Dobhoff tube was placed to continue feeding His stool output decreased yesterday, will continue to monitor Megacolon noted on 3 daily abd xray. GI indicated they may try neostigmine for possible antoine syndrome. (2) Hyperchloremic metabolic acidosis Code(s): E87.2 - ACIDOSIS Status: Acute Plan: Likely from diarrhea, will continue with 1/2 NS for hydration. (3) Hyperparathyroidism, secondary Code(s): N25.81 - SECONDARY HYPERPARATHYROIDISM OF RENAL ORIGIN Status: Acute Plan: At this time, unclear etiology. Vit D is normal. Ca when corrected for albumin is normal. CT scan. (4) Respiratory failure requiring intubation Code(s): J96.90 - RESPIRATORY FAILURE, UNSP, UNSP W HYPOXIA OR HYPERCAPNIA Status: Acute Plan: Patient is stating well, appreciate pulmonolgy consult Patient did well on sedation vacation, was originally intubated due to inability to protect airway He is awake and interactive today off of sedation Will follow with pulmonology recs on extubation. (5) Seizure disorder Code(s): G40.909 - EPILEPSY, UNSP, NOT INTRACTABLE, WITHOUT STATUS EPILEPTICUS Status: Acute Plan: Has not had recurrence, may have been from electrolyte derangement. Will continue to monitor. (6) Aseptic meningitis Code(s): G03.0 - NONPYOGENIC MENINGITIS Status: Acute Plan: Labwork was drawn for this, but LP and clinical picture does not suggest meningitis. He is on acyclovir to cover, lower on differential. (7) Afib Code(s): I48.91 - UNSPECIFIED ATRIAL FIBRILLATION Status: Acute Plan: Appreciate cardiology recommendation. He did have an event overnight, see subjective. It has resolved at this time spontaneously. Echo was done prior finding eF 60-65 and dCHF. He is getting lovenox. He has remained in NSR today. <Cole Heredia - Last Filed: 11/07/17 08:54> Attending Addendum - Attending Addendum I personally evaluated the patient and discussed the management with Dr. Heredia. I agree with the History, Examination, Assessment and Plan documented above with any addition or exceptions noted below. The patient will likely receive neostigmine this morning with his chronic diarrhea. The patient's electrolytes will be replaced. He is otherwise doing well from respiratory standpoint. Pt in sinus rhythm this morning. <Nida Giraldo - Last Filed: 11/07/17 17:15>
--- NOTE | 2017-11-07 10:25 | PRG ---
DATE OF SERVICE: 11/07/2017 SUBJECTIVE: The patient denies any abdominal pain. His bowels are moving. He is having no nausea o r vomiting. OBJECTIVE: VITAL SIGNS: Temperature 98.5, pulse 60, respiratory rate 26, blood pressure 114/52. CHEST: Clear. CARDIOVASCULAR: Regular rate and rhythm. ABDOMEN: Distended, diffusely tympanitic, but nontender. EXTREMITIES: Normal. LABORATORY DATA: Laboratory shows a potassium 3.4, chloride 109, BUN 7, glucose 162, alkaline phosph atase 31, albumin 2.4, white blood cell count 11.7, hemoglobin 9.1, hematocrit 26.5. Two-view of the abdomen shows a large amount of colon gas. Decubitus shows some colonic air fluid levels. ASSESSMENT: 1. Alcohol abuse. 2. Respiratory failure. 3. Atrial fibrillation. RECOMMENDATIONS: Clearance is being given for neostigmine, so will proceed with that. Repeat films in a.m.
[2017-11-07] MEDS ORDERED: Atropine Sulfate 1 mg/10 ml Syringe ONE (10:36)
--- NOTE | 2017-11-07 11:33 | RAD ---
ABDOMINAL SURVEY WITH UPRIGHT CHEST AND TWO VIEW ABDOMEN: TECHNIQUE: A portable semi-erect chest along with supine and left decubitus views of the abdomen are obtained. FINDINGS: The chest shows the lungs to be well aerated. There is diffuse vascular and interstitial prominence without confluent infiltrate or consolidation. ET tube, NG tube, and central line appear in adequate positions. The abdominal films show diffuse gaseous dilatation of the colon. There is scattered small bowel gas , which appears nonspecific. No free air identified. POS: [facility]
[2017-11-07] MEDS ORDERED: Magnesium 2 GM/NS 0.9% 100 ML 2 GM in Premix Bag 1 BAG IVPB SCH (14:00)
[2017-11-07] MEDS ORDERED: Calcium Gluc 4.6 MEQ/10 ML (100 MG/ML) SLOW IVP SCH (14:00)
--- NOTE | 2017-11-07 14:09 | PRG ---
DATE OF SERVICE: 11/07/2017 SERVICE: Pulmonary Medicine. INTERVAL HISTORY: The patient is doing fairly well from a respiratory standpoint. This morning, we give him a dose of neostigmine. After he got this, he had a mild to moderate bowel movement. Outsid e of that, there is no significant change. He has no complications from the lungs, or from the heart associated with this thing. Otherwise, there has been no interval change to his condition. He is b reathing very comfortably on minimal support off the ventilator. PHYSICAL EXAMINATION: VITAL SIGNS: Afebrile, pulse 73, blood pressure 115/59, respirations 17, saturation 99% on 27% FiO2 and PEEP of 5. GENERAL: The patient is intubated. He is under the influence of minimal sedation, this is clearing. HEART: Normal rate, regular. ABDOMEN: Soft. Distended. Bowel sounds are present. MUSCULOSKELETAL: No cyanosis or clubbing. There is no pitting in the bilateral lower extremities. NEUROLOGIC: Grossly nonfocal. LABORATORY DATA: WBC 11.7, hemoglobin 9.1, platelets 198,000. Potassium 3.4. Magnesium 1.6, phosph orus 2.9. Calcium has improved significantly. Albumin 2.4, which is quite low. Liver function stud ies are otherwise unremarkable. IMAGING: Abdominal x-ray demonstrates distended loops of bowel, which is basically unchanged. No fr ee air is identified. Chest x-ray demonstrates endotracheal tube in good position. The right-sided IJ is also terminates in a good spot. There is a little evidence of volume overload with cephalizati on and fluid in the fissure. ASSESSMENT: 1. Acute hypoxic respiratory failure. 2. Atrial fibrillation, paroxysmal. 3. Sinus pauses with junctional escape rhythm, resolved. 4. Colon distention with chronic diarrhea. 5. Possible viral enteritis/meningitis. 6. Recent seizure. PLAN: The pause was likely ineffective medication. We backed off on our AV tarun blocking agents an d the patient has not had any additional event. He tolerated the neostigmine just fine. That being said, he only had a mild or modest bowel movement associated with it. We can consider additional dos es over the next 24-48 hours. A rectal tube may need to be replaced if he has frequent stooling. We will aggressively replace the magnesium, potassium, phosphorus, and I will give him an additional do se of calcium given our history. Spontaneous breathing trial will be performed and if he meets crite stefani, extubation will be considered.
[2017-11-08 04:40] LABS: #Basophils 0.1 thou/uL (0.0-0.2); #Eosinphils 0.9 thou/uL (0.0-0.7); #Lymphocytes 2.2 thou/uL (1.20-3.40); #Monocytes 1.4 thou/uL (0.11-0.59); #Neutrophils 10.7 thou/uL (1.40-6.50); %Basophils 0.3 % (0.0-1.0); %Lymphocytes 14.2 % (21.0-51.0); %Monocytes 9.4 % (0.0-10.0); %Neutrophils 70.1 % (42.0-75.0); Hemoglobin 10.6 g/dL (14.0-18.0); Mean Corpuscular HGB CONC 32.8 g/dL (32.0-36.0); Mean Corpuscular Hemoglobin 32.9 pg (27.0-31.0); Platelet Count 261 thou/uL (130-400); RBC Distribution Width 11.9 % (11.5-14.5); Red Blood Cell (RBC) Count 3.24 mill/uL (4.70-6.10); White Blood Cell (WBC) Count 15.3 thou/uL (4.8-10.8)
[2017-11-08] MEDS: Piperacillin/Tazobactam 3.375 GM in Sodium Chloride 0.9% 100 ML IVPB SCH ×4 (05:19→23:17)
[2017-11-08 05:27] LABS: ALT (SGPT) 29 U/L (8-55); AST (SGOT) 29 U/L (5-34); Albumin 3.2 g/dL (3.4-4.8); Alkaline Phosphatase 34 U/L (40-150); Anion Gap 12 mmol/L (10-20); BUN (Urea Nitrogen) 7 mg/dL (8.4-25.7); Bilirubin, Total 0.5 mg/dL (0.2-1.2); Calc. Creatinine Clearance 67 mL/min (70-130); Calcium 8.7 mg/dL (7.8-10.44); Carbon Dioxide 27 mmol/L (23-31); Chloride 108 mmol/L (98-107); Estimated GFR-MDRD 74; Globulin 2.6 g/dL (2.4-3.5); Glucose 132 mg/dL (83-110); Magnesium 1.7 mg/dL (1.6-2.6); Phosphorus 2.5 mg/dL (2.3-4.7); Protein, Total 5.8 g/dL (5.8-8.1); Sodium 143 mmol/L (136-145)
[2017-11-08] MEDS: Enoxaparin Sodium 40 MG/0.4 ML SYRINGE SC SCH (09:56)
[2017-11-08] MEDS: Pantoprazole 40 MG VIAL IVP SCH ×2 (09:56→20:28)
--- NOTE | 2017-11-08 10:26 | RAD ---
TWO VIEWS ABDOMEN: DATE: 11/08/17. HISTORY: Ogilvy syndrome. COMPARISON: Comparison is made to 11/07/17 exam. FINDINGS: Decubitus imaging of the abdomen with the right side up demonstrates no evidence for free intraperito duong air. There is gaseous distention of the colon throughout the abdomen/pelvis, most prominent in the region of the cecum. The cecum measures up to approximately 12-13 cm in transverse dimension, slightly more prominent than on the prior exam at which time it measured in the 10-11 cm range. IMPRESSION: Diffuse gaseous distention of bowel, primarily the colon, especially the region of the cecum, consist ent with the provided history of Ogilvy syndrome. No evidence for free intraperitoneal air. POS: [facility]
--- NOTE | 2017-11-08 12:00 | PDOC.FM ---
- Subjective Subjective: Patient is seem awake, extubated. He denies chest pain, SOB. He endorses still having diarrhea. Nursing said there has been no overnight event. - Objective MAR Reviewed: Yes Vital Signs & Weight: Vital Signs (12 hours) Temp Pulse Pulse Resp BP Pulse Ox Pulse Ox 11/08/17 09:44 98 11/08/17 09:32 120 H 167/82 H 98 11/08/17 08:06 88 17 98 11/08/17 08:00 98.3 F 11/08/17 04:00 98.8 F 11/08/17 02:34 83 16 97 11/08/17 00:00 98.9 F 95 Pulse Ox 11/08/17 09:44 11/08/17 09:32 96 11/08/17 08:06 11/08/17 08:00 11/08/17 04:00 11/08/17 02:34 11/08/17 00:00 Weight Admit Weight 72.6 kg Weight 72.6 kg Most Recent Monitor Data Heart Rate from ECG 78 NIBP 160/73 NIBP BP-Mean 103 Respiration from ECG 19 SpO2 99 I&O: 11/07/17 11/08/17 11/09/17 06:59 06:59 06:59 Intake Total 7968 8955 Output Total 2974 2588 665 Balance 2167 787 -328 Result Diagrams: 11/08/17 03:44 11/08/17 03:44 <Cole Heredia M - Last Filed: 11/08/17 11:58> - Objective Vital Signs & Weight: Vital Signs (12 hours) Temp Pulse Resp Pulse Ox 11/08/17 19:26 65 22 H 99 11/08/17 16:09 70 21 H 100 11/08/17 16:00 98.7 F 11/08/17 12:00 98.6 F 77 20 99 11/08/17 09:44 98 Weight Admit Weight 72.6 kg Weight 72.6 kg Most Recent Monitor Data Heart Rate from ECG 67 NIBP 152/81 NIBP BP-Mean 108 Respiration from ECG 15 SpO2 98 I&O: 11/07/17 11/08/17 11/09/17 06:59 06:59 06:59 Intake Total 5148 3773 1747 Output Total 2978 3330 1065 Balance 2162 794 985 Result Diagrams: 11/08/17 03:44 11/08/17 03:44 <ZhannaNeil - Last Filed: 11/08/17 21:50> Phys Exam - Physical Examination Constitutional: NAD HEENT: moist MMs Neck: supple Respiratory: no wheezing Mild crackles in base Cardiovascular: RRR, no significant murmur, no rub Gastrointestinal: soft, positive bowel sounds Distended, but soft, no pain. Musculoskeletal: no edema Neurological: non-focal, moves all 4 limbs Lymphatic: no nodes Psychiatric: normal affect Skin: no rash <Cole Heredia - Last Filed: 11/08/17 11:58> Dx/Plan (1) Gastroenteritis Code(s): K52.9 - NONINFECTIVE GASTROENTERITIS AND COLITIS, UNSPECIFIED Status : Acute Plan: EGD came back with shallow ulcer, possible h. pylori. May be viral infection per GI Will get h. pylori antigen and treat as needed and await biopsy. Dobhoff tube was placed to continue feeding. Consider DC as patient now awake Patient was given neostigmine yesterday for possible pseudo obstructive colon, seen with dilated colon on xray. He tolerated it well. (2) Hyperchloremic metabolic acidosis Code(s): E87.2 - ACIDOSIS Status: Acute Plan: Likely from diarrhea, will consider dc fluid as patient is now awake and can take PO, but due to diarrhea, may still continue fluid. His chloride remained elevated, but has been decreasing toward normal level. (3) Hyperparathyroidism, secondary Code(s): N25.81 - SECONDARY HYPERPARATHYROIDISM OF RENAL ORIGIN Status: Acute Plan: At this time, unclear etiology. Vit D is normal. Ca when corrected for albumin is normal. CT scan scan did not find abnormalities. (4) Respiratory failure requiring intubation Code(s): J96.90 - RESPIRATORY FAILURE, UNSP, UNSP W HYPOXIA OR HYPERCAPNIA Status: Acute Plan: Patient extubated, doing well, not requiring supplementation Continue to monitor. (5) Seizure disorder Code(s): G40.909 - EPILEPSY, UNSP, NOT INTRACTABLE, WITHOUT STATUS EPILEPTICUS Status: Acute Plan: Has not had recurrence, may have been from electrolyte derangement. Will continue to monitor. (6) Aseptic meningitis Code(s): G03.0 - NONPYOGENIC MENINGITIS Status: Acute Plan: Labwork was drawn for this, but LP and clinical picture does not suggest meningitis. He is on acyclovir to cover, lower on differential. (7) Afib Code(s): I48.91 - UNSPECIFIED ATRIAL FIBRILLATION Status: Acute Plan: Appreciate cardiology recommendation. He did have an event overnight, see subjective. It has resolved at this time spontaneously. Echo was done prior finding eF 60-65 and dCHF. He is getting lovenox. He has remained in NSR today. <Cole Hereida - Last Filed: 11/08/17 11:58> Attending Addendum - Attending Addendum I personally evaluated the patient and discussed the management with Dr. Heredia I agree with and repeated the History, Examination, Assessment and Plan documented above with any addition or exceptions noted below. Acute encephalopathy, with seizure, uncertain etiology, with no viral PCR sent on CSF and recent VZV 4-5 weeks ago, no pleiocytosis, resolved Afib with RVR, resolved, on amio and ASA, will assess risk Acute respiratory failure, resolved Acute colonic pseudoobstruction, s/p neostigmine Multiple electrolyte abnormalities, improving Chronic diarrhea with recent weight loss, uncertain etiology but with negative biopsies in the past, with duodenal ulceration as noted, H. pylori pending, await biopsies Overall improving compared with previous notes. <Neil Chao - Last Filed: 11/08/17 21:50>
[2017-11-08] MEDS ORDERED: Amiodarone HCl 450 MG, Admixture Fee 1 EACH in Dextrose 5% in Water 250 ML IVPB SCH ×3 (13:28)
[2017-11-08] MEDS ORDERED: Metoprolol Tartrate 25 MG TAB PO SCH (13:30)
[2017-11-08] MEDS: Sodium Chloride 0.45% 1,000 ML IV SCH (13:56)
--- NOTE | 2017-11-08 16:12 | PRG ---
DATE OF SERVICE: 11/08/2017 REASON FOR CONSULTATION: Diarrhea, duodenal ulceration and colonic distention. SUBJECTIVE: No acute events or problems overnight. The patient has been extubated in the interim and is able to converse appropriately upon interview today. Currently, he does endorse significant abdominal distention, but denies any pain associated with his condition. He also states that he has had multiple small to moderate sized liquid bowel movements over the last 24 hours as well as being able to pass flatus effectively. Currently, denies any nausea , vomiting, fevers, chills, odynophagia or dysphagia. No stated events of melena, hematochezia or hematemesis. OBJECTIVE: VITAL SIGNS: Temperature 98.6, pulse 77, blood pressure 144/87, respiratory rate 20 and satting 100% on 2 liters nasal cannula. GENERAL: The patient is awake and alert and oriented x4. NECK: Supple. No JVD noted. CARDIOVASCULAR: Regular rate and rhythm with no discernible murmurs, gallops or rubs. RESPIRATORY: Coarse breath sounds auscultated in all lung connell with no discernible wheezes or rales. ABDOMEN: Soft and nontender, moderate to severe distention in all abdominal quadrants that is tympanic to percussion. EXTREMITIES: No cyanosis, clubbing or edema. LABORATORY DATA: CBC with a white blood cell count of 15.3, hemoglobin 10.6, hematocrit 32.5 and platelets 261. Chemistry with a sodium of 143, potassium 4 , chloride 108, CO2 of 27, BUN 7, creatinine 0.99, AST 29, ALT 29, alkaline phosphatase 34 and total bilirubin 0.5. IMAGING DATA: Abdominal x-ray obtained on 11/08/2017, showing gaseous distention of the colon throughout the abdomen/pelvis, most prominent in the region of the cecum. The cecum measures up to approximately 12-13 cm in transverse dimension, slightly more prominent on the prior exam at which time it measured in the 10-11 cm range. No evidence of free intraperitoneal air. ASSESSMENT AND PLAN: The patient is a 72-year-old male with past medical history of hypertension, diabetes, gastroesophageal reflux disease, and irritable bowel syndrome with diarrhea predominance, presenting with acute viral meningitis as well as increased watery diarrhea and electrolyte abnormalities associated with this diarrhea. Diarrhea The patient presented with significant diarrhea prior to admission that was felt to be contributing to a significant electrolyte abnormality seen at the referring institution with correction/resuscitation within the first 24-48 hours of this hospitalizations. However, he continues to have a significant number of small volume liquid stools as well as some instability of his electrolytes that are currently being repleted. Stool workup for infectious etiology has been negative thus far including Campylobacter, Clostridium difficile, Escherichia coli, salmonella and Shigella Clostridium. Clostridium difficile, E. has been negative x2. At this point, the etiology of the diarrhea. It is unclear; however, if the patient had been experiencing colonic distention prior to admission with compartmentalization of the colon. He could contribute to increased watery bowel movements a viral etiology has not been ruled out at this time, as well as a possible paraneoplastic syndrome given his elevation of PTH. 1. Continue IV fluids and electrolyte repletion as you are doing. 2. Empiric antibiotic treatment for infectious diarrhea is not indicated at this time. Abnormal GI imaging/colonic pseudoobstruction. The patient is presenting with a CT abdomen and pelvis on admission showing mucosal prominence and adjacent fluid stranding/stranding within the distal stomach and the first and second portion of the duodenum. Esophagogastroduodenoscopy evaluation showed a large duodenal bulb ulceration without high risk stigmata of bleeding as well as submucosal linear hemorrhage in the stomach consistent with orogastric tube trauma. However, KUB obtained on 11/04/2017 showed significant distention of the colon. There was also noted on the CT scan obtained on the bench and on admission with unchanged caliber; however, with the recent KUB performed this morning it showing increased distention of the colon with approximately 12-13 cm diameter of the cecum, raising concern for possible perforation. However, at the current point in time , the patient is able to pass gas as well as has small volume frequent bowel movements, showing some ability of the colon to expel its contents. Neostigmine administration x1 yesterday showed a modest improvement in the frequency of bowel movements, but no change in terms of the colonic distention noted on KUB today. At this time, the severe distention of this colon is felt to be due to a colonic pseudoobstruction/[place] syndrome most likely related to severe illness secondary to viral meningitis. At this point, with the cecum reaching 12-13 cm in diameter. It is concerning for increased risk of perforation with intervention suggested. RECOMMENDATIONS: 1. Would readminister neostigmine 2mg once for possible colonic decompression with close monitoring of heart rate/rhythm while in the ICU. 2. If neostigmine administration is unsuccessful at decompression of the colon. Would strongly consider unprepped colonoscopy with colonic decompression tube placement. 3. Would continue to monitor with daily KUB of the abdomen to assess any change in the colonic distention. We will continue to follow. Please call with any questions. MTDD
[2017-11-08] MEDS: Amiodarone 200 MG TAB PO SCH (20:27)
[2017-11-08] MEDS: Metoprolol Tartrate 25 MG TAB PO SCH (20:28)
--- NOTE | 2017-11-09 01:07 | PRG ---
DATE OF SERVICE: 11/08/2017 SUBJECTIVE: Mr. Bahena is doing much better. He has been extubated over the weekend. He is hemodyna mically stable. He still has a colonic ileus. OBJECTIVE: VITAL SIGNS: Heart rate 70, respiratory rate 21, oximetry is 100% on 2 liters, blood pressure 156/80 . LUNGS: Clear. HEART: Regular rhythm. ABDOMEN: Distended and tympanitic. LABORATORY DATA: White count 15.3, hemoglobin 10.6, platelets 261. Sodium 143, potassium 4, chlorid e 108, bicarbonate 27, BUN 7, creatinine 0.99. IMPRESSION AND PLAN: 1. Status post intubation for severe encephalopathy, most likely secondary to viral encephalitis. 2. Bad diarrhea on top of chronic diarrhea that is intermittent, most likely irritable bowel with di arrhea in the past for 20-30 years; the diarrhea was viral mediated. 3. Colonic ileus with poor response to neostigmine yesterday. He will receive another dose today. He is in the Intensive Care Unit for the dosing of this. He appears to be clinically improving. The encephalopathy that cleared rapidly with an elevated CSF protein would argue that he had a viral enc ephalitis/meningitis on presentation in my opinion.
[2017-11-09] MEDS: Piperacillin/Tazobactam 3.375 GM in Sodium Chloride 0.9% 100 ML IVPB SCH ×2 (05:17→11:48)
[2017-11-09 05:21] LABS: #Basophils 0.1 thou/uL (0.0-0.2); #Eosinphils 0.8 thou/uL (0.0-0.7); #Lymphocytes 2.1 thou/uL (1.20-3.40); #Monocytes 1.5 thou/uL (0.11-0.59); #Neutrophils 10.3 thou/uL (1.40-6.50); %Basophils 0.5 % (0.0-1.0); %Eosinophils 5.3 % (0.0-10.0); %Neutrophils 70.2 % (42.0-75.0); Hemoglobin 11.7 g/dL (14.0-18.0); Mean Corpuscular HGB CONC 33.2 g/dL (32.0-36.0); Mean Corpuscular Hemoglobin 33.3 pg (27.0-31.0); Mean Platelet Volume 7.6 fL (7.4-10.4); Platelet Count 335 thou/uL (130-400); Red Blood Cell (RBC) Count 3.51 mill/uL (4.70-6.10); White Blood Cell (WBC) Count 14.7 thou/uL (4.8-10.8)
[2017-11-09 05:47] LABS: ALT (SGPT) 26 U/L (8-55); AST (SGOT) 22 U/L (5-34); Albumin 3.3 g/dL (3.4-4.8); Alkaline Phosphatase 38 U/L (40-150); Anion Gap 10 mmol/L (10-20); BUN (Urea Nitrogen) 12 mg/dL (8.4-25.7); Bilirubin, Total 0.3 mg/dL (0.2-1.2); Calc. Creatinine Clearance 65 mL/min (70-130); Calcium 8.9 mg/dL (7.8-10.44); Carbon Dioxide 28 mmol/L (23-31); Chloride 106 mmol/L (98-107); Estimated GFR-MDRD 71; Globulin 2.7 g/dL (2.4-3.5); Glucose 145 mg/dL (83-110); Magnesium 1.6 mg/dL (1.6-2.6); Phosphorus 2.8 mg/dL (2.3-4.7); Potassium 3.5 mmol/L (3.5-5.1); Sodium 140 mmol/L (136-145)
[2017-11-09 06:16] LABS: Endomysial IgA Autoabs Negative (Negative); Immunoglobulin A 214 mg/dL (61-437); t-Transglutaminase (TTG) IgA <2 U/mL (0-3)
[2017-11-09] MEDS: Potassium Chloride 40 MEQ in Premix Bag 1 BAG IVPB PRN (07:03)
[2017-11-09] MEDS: Sodium Chloride 0.45% 1,000 ML IV SCH (07:06)
[2017-11-09] MEDS: Enoxaparin Sodium 40 MG/0.4 ML SYRINGE SC SCH (09:07)
[2017-11-09] MEDS: Pantoprazole 40 MG VIAL IVP SCH ×2 (09:07→20:02)
[2017-11-09] MEDS: Amiodarone 200 MG TAB PO SCH ×2 (09:07→20:02)
[2017-11-09] MEDS: Metoprolol Tartrate 25 MG TAB PO SCH ×2 (09:07→20:03)
[2017-11-09] MEDS ORDERED: Atropine Sulfate 1 mg/10 ml Syringe ONE (11:09)
--- NOTE | 2017-11-09 13:23 | PRG ---
DATE OF SERVICE: 11/09/2017 Mr. Bahena is feeling better. He had neostigmine again this morning, he had a fairly massive bowel mo vement. His abdominal distention is down significantly. PHYSICAL EXAMINATION: VITAL SIGNS: His heart rate 63, respiratory rate 23, oximetry is 99 on 2 liters, and blood pressure 157/88. LUNGS: His lungs are clear. HEART: Regular rhythm. ABDOMEN: Abdomen is much softer and less distended than yesterday. EXTREMITIES: Without asymmetry. He still apparently in and out of atrial fibrillation. His white count 14.7, hemoglobin 11.7, platel ets 335,000. Electrolytes are normal today, his potassium is 3.5, glucose 145. Phosphorus normal, magnesium is no rmal. Calcium is normal. IMPRESSION: 1. Severe diarrhea ? viral mediated. 2. Meningeal encephalitis presenting with respiratory failure and encephalopathy, now resolved. He is not back to his baseline, but he is more alert each day. 3. Probable irritable bowel syndrome with diarrhea for most of his life prior to this. I will stop the antibiotics. There is no clear indication for ongoing IV antimicrobial therapy and i t would increase the risk of him developing C. diff colitis. We will increase his activity level. Maribell adkins needs physical therapy starting to walk with him. He can be transferred to the Telemetry Unit when a bed becomes available and because of his intermittent atrial fibrillation he is on amiodarone and a beta compa by mouth now.
--- NOTE | 2017-11-09 14:51 | PDOC.FM ---
- Subjective Subjective: Patient was found sitting in [place] with by bedside. He was conversational. He denies any chest pain, SOB, abd piain. He thinks his abd distension has improved. He endorses passing BM and gas. - Objective MAR Reviewed: Yes Vital Signs & Weight: Vital Signs (12 hours) Temp Pulse Pulse Pulse Resp BP BP 11/09/17 11:35 116 H 105 H 157/88 H 153/88 H 11/09/17 11:31 63 23 H 11/09/17 08:42 11/09/17 08:33 74 20 11/09/17 08:00 98.6 F 74 20 11/09/17 04:00 98.6 F Pulse Ox 11/09/17 11:35 11/09/17 11:31 99 11/09/17 08:42 100 11/09/17 08:33 100 11/09/17 08:00 98 11/09/17 04:00 Weight Admit Weight 72.6 kg Weight 72.6 kg Most Recent Monitor Data Heart Rate from ECG 65 NIBP 157/88 NIBP BP-Mean 116 Respiration from ECG 20 SpO2 93 I&O: 11/08/17 11/09/17 11/10/17 06:59 06:59 06:59 Intake Total 3773 3193 110 Output Total 3330 1065 300 Balance 443 2128 -190 Result Diagrams: 11/09/17 04:53 11/09/17 04:53 <Cole Heredia M - Last Filed: 11/09/17 14:49> - Objective Vital Signs & Weight: Vital Signs (12 hours) Temp Pulse Pulse Pulse Resp BP BP 11/09/17 15:49 74 21 H 11/09/17 12:00 98.5 F 11/09/17 11:35 116 H 105 H 157/88 H 153/88 H 11/09/17 11:31 63 23 H 11/09/17 08:42 11/09/17 08:33 74 20 11/09/17 08:00 98.6 F 74 20 Pulse Ox 11/09/17 15:49 100 11/09/17 12:00 11/09/17 11:35 11/09/17 11:31 99 11/09/17 08:42 100 11/09/17 08:33 100 11/09/17 08:00 98 Weight Admit Weight 72.6 kg Weight 72.6 kg Most Recent Monitor Data Heart Rate from ECG 74 NIBP 157/77 NIBP BP-Mean 123 Respiration from ECG 23 SpO2 100 I&O: 11/08/17 11/09/17 11/10/17 06:59 06:59 06:59 Intake Total 3773 3193 290 Output Total 3330 1065 400 Balance 443 2128 -110 Result Diagrams: 11/09/17 04:53 11/09/17 04:53 <Neil Chao - Last Filed: 11/09/17 17:12> Phys Exam - Physical Examination Constitutional: NAD HEENT: moist MMs Neck: no nodes, supple Respiratory: no wheezing, no rales, no rhonchi Cardiovascular: RRR, no significant murmur, no rub Gastrointestinal: soft, non-tender, positive bowel sounds Distended, less then yesterday, high pitch bowel sound Musculoskeletal: no edema Neurological: non-focal, moves all 4 limbs Lymphatic: no nodes Psychiatric: normal affect Skin: no rash <Cole Heredia M - Last Filed: 11/09/17 14:49> Dx/Plan (1) Gastroenteritis Code(s): K52.9 - NONINFECTIVE GASTROENTERITIS AND COLITIS, UNSPECIFIED Status : Acute Plan: EGD came back with shallow ulcer, result currently negative May be viral infection per GI Dobhoff tube was placed to continue feeding. Consider DC as patient now awake Patient was given neostigmine 2 days prior. He will get another dose of neostigmine today. (2) Aseptic meningitis Code(s): G03.0 - NONPYOGENIC MENINGITIS Status: Acute Plan: Currently being covered with acyclovir as this is a possible cause of his AMS and seizure. (3) Afib Code(s): I48.91 - UNSPECIFIED ATRIAL FIBRILLATION Status: Acute Plan: He is being covered with amiodarone and betablocker. He has not had recurrance for past 3 days. It was felt to be a one time event and patient is not on anticoagulation at this time. Will follow with cardiology recommendation. (4) Hyperchloremic metabolic acidosis Code(s): E87.2 - ACIDOSIS Status: Acute Plan: Likely from diarrhea, will consider dc fluid as patient is now awake and can take PO, but due to diarrhea, may still continue fluid. His chloride remained elevated, but has been decreasing toward normal level. (5) Hyperparathyroidism, secondary Code(s): N25.81 - SECONDARY HYPERPARATHYROIDISM OF RENAL ORIGIN Status: Acute Plan: At this time, unclear etiology. Vit D is normal. Ca when corrected for albumin is normal. CT scan scan did not find abnormalities but paraneoplastic syndrome is possibility. He doesn't have hyperreflexia, tremor or fever. (6) Respiratory failure requiring intubation Code(s): J96.90 - RESPIRATORY FAILURE, UNSP, UNSP W HYPOXIA OR HYPERCAPNIA Status: Acute Plan: Consider resovled at this poinkt. Patient occasionally has O2 by [place], but has satted well without supplementation (7) Seizure disorder Code(s): G40.909 - EPILEPSY, UNSP, NOT INTRACTABLE, WITHOUT STATUS EPILEPTICUS Status: Acute Plan: Has not had recurrence, may have been from aseptic meningitis vs electrolyte derangement. Will continue to monitor. <Cole Heredia - Last Filed: 11/09/17 14:49> Attending Addendum - Attending Addendum I personally evaluated the patient and discussed the management with Dr. Heredia. I agree with and repeated the History, Examination, Assessment and Plan documented above with any addition or exceptions noted below. Doing well this AM, distended but no abdominal pain. Still with frequent BMs. Colonic pseudoobstruction will attempt a second dose of neostigmine today Replete ale WHE[employer]ER. [facility]. <Neil Chao - Last Filed: 11/09/17 17:12>
[2017-11-09] MEDS: HumaLOG 300 UNITS/3 ML VIAL SC PRN (17:39)
--- NOTE | 2017-11-09 18:21 | RAD ---
ABDOMEN ONE VIEW: 11/09/17 HISTORY: Distention. FINDINGS/IMPRESSION: A feeding tube is seen with tip in projection of the proximal stomach. There is air in distended loop s of colon. There are degenerative changes in the spine. POS: MARCELLEH
--- NOTE | 2017-11-09 21:29 | PRG ---
DATE OF SERVICE: 11/09/2017 REASON FOR CONSULTATION: Diarrhea, duodenal ulceration, and colonic distention. SUBJECTIVE: No acute events or problems overnight. Patient received an additional 2 mg neostigmine earlier today with subjective decrease in abdominal distention in addition to having a large liquid bowel movement with some solid stool mixed in. At this time, he denies any abdominal pain, nausea, vomiting, fevers, chills, odynophagia or dysphagia. No stated events of melena, hematochezia or hematemesis. OBJECTIVE: VITAL SIGNS: Temperature 98.5, pulse 74, blood pressure 135/77, respiratory rate 21, satting 100% on 2 liters nasal cannula. GENERAL: The patient is awake and alert and oriented x4, able to converse effectively and answer questions. NECK: Supple. No JVD noted. CARDIOVASCULAR: Regular rate and rhythm with no discernible murmurs, gallops or rubs. RESPIRATORY: Coarse breath sounds auscultated in all lung connell with no discernible wheezes or rales. ABDOMEN: Soft, nontender, moderate distention in all abdominal quadrants that it is tympanic to percussion. No tenderness upon palpation. EXTREMITIES: No cyanosis, clubbing or edema. LABORATORY DATA: CBC with white blood cell count of 14.7, hemoglobin 11.7, hematocrit 35.3, platelets 335. Chemistry with a sodium 140, potassium 3.5, chloride 106, CO2 28, BUN 12, creatinine 1.02, glucose 145, AST 22, ALT 26, alkaline phosphatase 38, T-bilirubin 0.3. IMAGING DATA: No current GI imaging. ASSESSMENT AND PLAN: The patient is a 72-year-old female with a past medical history of hypertension, diabetes, gastroesophageal reflux disease, and irritable bowel syndrome with diarrhea predominance presenting with acute viral meningitis as well as severe watery diarrhea, electrolyte abnormalities, and colonic distention. Severe diarrhea The patient presented with significant diarrhea prior to admission that was felt to be contributing to significant electrolyte abnormalities seen in the referring institution. However, he continued to have a significant number of small volume liquid stools as well as instability of the electrolytes that have since been repleted. Infectious Stool workup was negative for Campylobacter, Clostridium difficile, E. coli, salmonella and Shigella. At this point, the etiology of the diarrhea was unclear, but most likely due to increased colonic distention and decompartmentalization of the colon leading to increased passage of watery stool. Recommendations: 1. Continue IV fluids and tube feeds for the patient as you are doing. 2. Empiric antibiotic treatment for infectious diarrhea is not indicated at this time. Abnormal GI imaging/colonic pseudoobstruction The patient initially presented with a CT abdomen and pelvis on admission showing mucosal prominence and adjacent fluid stranding within the distal stomach and first and second portion of the duodenum. EGD evaluation showed a large duodenal bulb ulceration without high risk stigmata of bleeding as well as submucosal linear hemorrhage in the stomach consistent with orogastric tube trauma. However, KUB obtained on 11/04/2017 showed significant distention of the colon. This was also seen on the admission CT scan and was relatively unchanged in caliber between these two studies; however, recent KUB obtained on 11/07/2017 showed increased colonic distention to approximately 12-13 cm in diameter in the cecum. He ultimately underwent neostigmine administration x1 on the 11/08/2017 with a modest improvement in the frequency of bowel movements , but no change in terms of colonic distention. He underwent a second administration of neostigmine 2 mg x1 today with increased diarrhea-like bowel movement and subjective decrease in distention upon interview with the patient and ICU staff. Repeat KUB has not been performed at this time. 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 At this point with the severe colonic distention, it was concerning for impending perforation, but with neostigmine administration today, it may have effectively decompressed the colon. Recommendations 1. We would obtain repeat KUB for evaluation of the current state of the colonic distention. If the patient continues to have a cecal diameter of approximately 12-13 cm, we then strongly consider an unprepped colonoscopy with colonic decompression tube placement. We will continue to follow. Please call with any questions. [facility]
[2017-11-10 05:54] LABS: #Basophils 0.1 thou/uL (0.0-0.2); #Eosinphils 0.8 thou/uL (0.0-0.7); #Lymphocytes 3.4 thou/uL (1.20-3.40); #Monocytes 1.5 thou/uL (0.11-0.59); #Neutrophils 9.8 thou/uL (1.40-6.50); %Basophils 0.7 % (0.0-1.0); %Eosinophils 4.9 % (0.0-10.0); %Lymphocytes 21.7 % (21.0-51.0); %Monocytes 9.8 % (0.0-10.0); %Neutrophils 62.9 % (42.0-75.0); Hemoglobin 11.5 g/dL (14.0-18.0); Mean Corpuscular HGB CONC 33.5 g/dL (32.0-36.0); Mean Corpuscular Hemoglobin 33.6 pg (27.0-31.0); Mean Platelet Volume 7.9 fL (7.4-10.4); Platelet Count 362 thou/uL (130-400); RBC Distribution Width 12.2 % (11.5-14.5); Red Blood Cell (RBC) Count 3.42 mill/uL (4.70-6.10); White Blood Cell (WBC) Count 15.6 thou/uL (4.8-10.8)
[2017-11-10 06:15] LABS: ALT (SGPT) 26 U/L (8-55); AST (SGOT) 19 U/L (5-34); Albumin 3.3 g/dL (3.4-4.8); Alkaline Phosphatase 38 U/L (40-150); Anion Gap 11 mmol/L (10-20); BUN (Urea Nitrogen) 18 mg/dL (8.4-25.7); Bilirubin, Total 0.3 mg/dL (0.2-1.2); Calc. Creatinine Clearance 56 mL/min (70-130); Carbon Dioxide 25 mmol/L (23-31); Chloride 107 mmol/L (98-107); Estimated GFR-MDRD 65; Globulin 2.9 g/dL (2.4-3.5); Glucose 132 mg/dL (83-110); Magnesium 1.6 mg/dL (1.6-2.6); Phosphorus 2.8 mg/dL (2.3-4.7); Potassium 3.1 mmol/L (3.5-5.1); Protein, Total 6.2 g/dL (5.8-8.1); Sodium 140 mmol/L (136-145)
[2017-11-10] MEDS: Amiodarone 200 MG TAB PO SCH ×2 (09:21→21:44)
[2017-11-10] MEDS: Metoprolol Tartrate 25 MG TAB PO SCH ×2 (09:21→21:45)
[2017-11-10] MEDS: Enoxaparin Sodium 40 MG/0.4 ML SYRINGE SC SCH (09:21)
[2017-11-10] MEDS: Pantoprazole 40 MG VIAL IVP SCH ×2 (09:21→21:45)
[2017-11-10] MEDS ORDERED: Potassium Chloride 40 MEQ in Sodium Chloride 0.9% 250 ML 250 ML IVPB SCH ×4 (11:00)
--- NOTE | 2017-11-10 11:09 | PDOC.FM ---
- Subjective Subjective: He had transfer out of ICU to [facility], is able to ambulate to bedside commode for BM, had palmer DC. He states he feels well, still has some abd distension, but passing gas and stool. No nausea or abd pain. - Objective MAR Reviewed: Yes Vital Signs & Weight: Vital Signs (12 hours) Temp Pulse Resp BP Pulse Ox 11/10/17 04:35 98 11/10/17 03:00 98.0 F 67 18 141/80 H 98 11/10/17 02:33 68 18 96 11/10/17 00:05 97 11/10/17 00:00 97.3 F L 72 15 138/84 97 Weight Admit Weight 72.6 kg Weight 68.266 kg Most Recent Monitor Data Heart Rate from ECG 93 NIBP 144/85 NIBP BP-Mean 115 Respiration from ECG 21 SpO2 99 I&O: 11/09/17 11/10/17 11/11/17 06:59 06:59 06:59 Intake Total 3192 2001 Output Total 1065 600 Balance 2128 1402 Result Diagrams: 11/10/17 04:20 11/10/17 04:20 <Cole Heredia - Last Filed: 11/10/17 11:06> - Objective Vital Signs & Weight: Vital Signs (12 hours) Temp Pulse Resp BP Pulse Ox 11/10/17 04:35 98 11/10/17 03:00 98.0 F 67 18 141/80 H 98 11/10/17 02:33 68 18 96 11/10/17 00:05 97 11/10/17 00:00 97.3 F L 72 15 138/84 97 Weight Admit Weight 72.6 kg Weight 68.266 kg Most Recent Monitor Data Heart Rate from ECG 93 NIBP 144/85 NIBP BP-Mean 115 Respiration from ECG 21 SpO2 99 I&O: 11/09/17 11/10/17 11/11/17 06:59 06:59 06:59 Intake Total 3192 2001 Output Total 1065 600 Balance 2128 1402 Result Diagrams: 11/10/17 04:20 11/10/17 04:20 <Neil Chao - Last Filed: 11/10/17 11:59> Phys Exam - Physical Examination Constitutional: NAD HEENT: moist MMs Neck: no nodes Respiratory: no wheezing, no rales, no rhonchi, clear to auscultation bilateral Cardiovascular: RRR, no significant murmur, no rub Gastrointestinal: soft, positive bowel sounds High pitch sound, distended but soft Musculoskeletal: no edema Neurological: non-focal Lymphatic: no nodes Psychiatric: normal affect Skin: no rash <Cole Heredia M - Last Filed: 11/10/17 11:06> Dx/Plan (1) Gastroenteritis Code(s): K52.9 - NONINFECTIVE GASTROENTERITIS AND COLITIS, UNSPECIFIED Status : Acute Plan: EGD came back with shallow ulcer, result currently negative May be viral infection per GI Dobhoff tube was placed to continue feeding. Consider DC as patient now awake Patient received 2 dose of neostigmine. GI considering colonoscopy with rectal tube placement (2) Aseptic meningitis Code(s): G03.0 - NONPYOGENIC MENINGITIS Status: Acute Plan: Currently being covered with acyclovir as this is a possible cause of his AMS and seizure. No change in mentation (3) Afib Code(s): I48.91 - UNSPECIFIED ATRIAL FIBRILLATION Status: Acute Plan: He is being covered with amiodarone and betablocker. He has not had recurrence for past 3 days. It was felt to be a one time event and patient is not on anticoagulation at this time. Will follow with cardiology recommendation. Is unchanged at this time (4) Hyperchloremic metabolic acidosis Code(s): E87.2 - ACIDOSIS Status: Acute Plan: Likely from diarrhea, will consider dc fluid as patient is now awake and can take PO, but due to diarrhea, may still continue fluid. His chloride remained elevated, but has been decreasing toward normal level. Resolved at this time (5) Hyperparathyroidism, secondary Code(s): N25.81 - SECONDARY HYPERPARATHYROIDISM OF RENAL ORIGIN Status: Acute Plan: At this time, unclear etiology. Vit D is normal. Ca when corrected for albumin is normal. CT scan scan did not find abnormalities but paraneoplastic syndrome is possibility. He doesn't have hyperreflexia, tremor or fever. Will reevaluate if clinical conditio nchanges (6) Respiratory failure requiring intubation Code(s): J96.90 - RESPIRATORY FAILURE, UNSP, UNSP W HYPOXIA OR HYPERCAPNIA Status: Acute Plan: Consider resovled at this poinkt. Patient occasionally has O2 by [place], but has satted well without supplementation. Has resolved (7) Seizure disorder Code(s): G40.909 - EPILEPSY, UNSP, NOT INTRACTABLE, WITHOUT STATUS EPILEPTICUS Status: Acute Plan: Has not had recurrence, may have been from aseptic meningitis vs electrolyte derangement. Will continue to monitor. Has resolved <Cole Heredia - Last Filed: 11/10/17 11:06> Attending Addendum - Attending Addendum I personally evaluated the patient and discussed the management with Dr. Heredia. I agree with and repeated the History, Examination, Assessment and Plan documented above with any addition or exceptions noted below. Doing well this morning. Distension but no pain. Diarrhea, nonbloody. No n/v/ cp/sob/f/c. Supporting care. Replete electrolytes. MIVF. May need to transition to midline in the next day or so pending course. <Neil Choa - Last Filed: 11/10/17 11:59>
[2017-11-10] MEDS: Sodium Chloride 0.45% 1,000 ML IV SCH (13:46)
--- NOTE | 2017-11-10 17:01 | PRG ---
DATE OF SERVICE: 11/10/2017 REASON FOR CONSULTATION: Diarrhea, duodenal ulceration, and colonic distention SUBJECTIVE: No acute events or problems overnight with patient feeling much improved this morning. He subjectively notices a mild decrease in abdominal distention when compared to the day prior. At this point, he denies any abdominal pain, nausea, vomiting, fevers, chills, odynophagia or dysphagia. No stated events of melena, hematochezia or hematemesis. OBJECTIVE: VITAL SIGNS: Temperature 97.5, pulse 63, blood pressure 156/77, respiratory rate 16, satting 97% on 2 liters nasal cannula. GENERAL: The patient is awake and alert and oriented x4, able to converse effectively and answer questions. NECK: Supple. No JVD noted. CARDIOVASCULAR: Regular rate and rhythm with no discernible murmurs, gallops or rubs. RESPIRATORY: Minimal coarse breath sounds auscultated in the upper lung connell with no discernible wheezes or rales. ABDOMEN: Soft, nontender, moderate distention in all abdominal quadrants. There is tympanic to percussion. No tenderness on palpation. EXTREMITIES: No cyanosis, clubbing or edema. LABORATORY DATA: CBC with a white blood cell count of 15.6, hemoglobin 11.5, hematocrit 34.3, platelets 362. Chemistry with a sodium of 140, potassium 3.1, chloride 107, CO2 of 25, BUN 18, creatinine 1.11, platelets 132. IMAGING DATA: No current GI imaging available for review. ASSESSMENT AND PLAN: The patient is a 72-year-old male with past medical history of hypertension, diabetes, gastroesophageal reflux disease, and irritable bowel syndrome, presenting with acute viral meningitis as well as severe diarrhea with associated electrolyte abnormalities and significant colonic distention, most likely from [place] syndrome. Severe diarrhea The patient presented with significant diarrhea prior to admission that was felt to be contributing to significant electrolyte abnormalities, seen in the referring institution. Infectious Stool workup was negative for Campylobacter, Clostridium difficile, Escherichia coli, salmonella and Shigella. However, upon review of imaging, he was noted to have some significant colonic distention , noted on the CT scan on admission and subsequent abdominal x-rays during this admission. At this point, the etiology of his diarrhea is unclear, but most likely due to increased colonic distention and decompartmentalization of the colon leading to decreased surface area for the absorption of water creating watery stool. RECOMMENDATIONS: 1. Would continue IV fluids as needed unless the patient is able to adequately tolerate oral intake. Would discontinue tube feeds and start the patient on either clear or full liquid diet and advance as tolerated. 2. Empiric antibiotic treatment for infectious diarrhea is not indicated at this time given negative stool studies. Abnormal GI imaging/colonic pseudoobstruction The patient initially presented with CT and pelvis on admission showing mucosal prominence and adjacent fluid stranding within the distal stomach, and proximal duodenum. EGD evaluation showed a large duodenal bulb ulceration without the presence of high risk stigmata of bleeding as well as submucosal linear hemorrhage in the proximal stomach consistent with orogastric tube trauma. However, upon evaluating the remainder of his imaging studies, they showed significant distention of the colon as noted on his CT scan on admission and subsequent KUB taken during the course of his stay. Ultimately there was no transition point to indicate a bowel obstruction with the diagnosis of [place] syndrome, high on the differential. The KUB obtained on 11/07/2017 showed increased colonic distention to approximately 12-13 cm in diameter in the cecum concerning for impending perforation. He ultimately underwent neostigmine administration x1 on 11/08/2017 with a modest improvement in the frequency of bowel movements, but no change in terms of colonic distention; however, he underwent a second administration of neostigmine 2 mg x1 on 11/09/2017 with a significant diarrhea like bowel movements immediately afterwards and subjective decrease in distention at this time. Repeat KUB taken on 11/09/2017 showed decreased colonic distention, especially within the left colon, but remains to have some distention within the cecum measuring approximately 10-11 cm (per my read). 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 Given the improvement in colonic distention on the most recent KUB, colonoscopy with placement of a colonic decompression tube is not indicated. RECOMMENDATIONS: 1. Would advance the patient's feeds as tolerated as above. 2. Would obtain a repeat KUB on 11/11/2017 for reevaluation of the colonic distention. 3. Would refrain from any antimotility agents at this time given recent colonic pseudoobstruction. 4. Continue PPI daily for duodenal ulceration We will sign off. Please call with any additional questions or change in patient's condition. [facility]
--- NOTE | 2017-11-10 21:45 | PRG ---
DATE OF SERVICE: 11/10/2017 SUBJECTIVE: Josef is afebrile. OBJECTIVE: VITAL SIGNS: Heart rate is the 60s, respiratory rate 16, oximetry is 99 on 2 liters, blood pressure 156/77. LUNGS: Clear. HEART: Regular rhythm. ABDOMEN: Soft, slightly protuberant, but nontender. He said he had a good bowel movement this morni ng. He is on liquids. LABORATORY INVESTIGATIONS: White count 15.6, hemoglobin 11.5, platelets 362,000. Sodium 140, potass ium 3.1, chloride 107, bicarbonate 25, BUN 18, creatinine 1.11. IMPRESSION: 1. Acute respiratory failure, status post extubation, resolved. 2. Colonic ileus, improved after neostigmine on the second dose. 3. Diabetes. 4. Probable irritable bowel syndrome with diarrhea his whole life. 5. Hypertension. 6. 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 PLAN: Continue current care with primary gastrointestinal. Unfortunately, he appears to be improvin g every day clinically.
[2017-11-11 05:18] LABS: #Basophils 0.1 thou/uL (0.0-0.2); #Eosinphils 0.6 thou/uL (0.0-0.7); #Lymphocytes 2.9 thou/uL (1.20-3.40); #Monocytes 1.6 thou/uL (0.11-0.59); #Neutrophils 11.5 thou/uL (1.40-6.50); %Basophils 0.3 % (0.0-1.0); %Eosinophils 3.5 % (0.0-10.0); %Lymphocytes 17.5 % (21.0-51.0); %Monocytes 9.8 % (0.0-10.0); %Neutrophils 68.9 % (42.0-75.0); Hemoglobin 10.7 g/dL (14.0-18.0); Mean Corpuscular HGB CONC 33.5 g/dL (32.0-36.0); Mean Corpuscular Hemoglobin 33.4 pg (27.0-31.0); Mean Corpuscular Volume 99.9 fl (80.0-94.0); Mean Platelet Volume 7.7 fL (7.4-10.4); Platelet Count 355 thou/uL (130-400); RBC Distribution Width 12.2 % (11.5-14.5); Red Blood Cell (RBC) Count 3.21 mill/uL (4.70-6.10); White Blood Cell (WBC) Count 16.7 thou/uL (4.8-10.8)
[2017-11-11 05:31] LABS: ALT (SGPT) 31 U/L (8-55); AST (SGOT) 23 U/L (5-34); Albumin 3.4 g/dL (3.4-4.8); Alkaline Phosphatase 32 U/L (40-150); Anion Gap 10 mmol/L (10-20); BUN (Urea Nitrogen) 16 mg/dL (8.4-25.7); Bilirubin, Total 0.5 mg/dL (0.2-1.2); Calc. Creatinine Clearance 64 mL/min (70-130); Calcium 8.5 mg/dL (7.8-10.44); Carbon Dioxide 25 mmol/L (23-31); Chloride 105 mmol/L (98-107); Estimated GFR-MDRD 75; Globulin 2.5 g/dL (2.4-3.5); Glucose 112 mg/dL (83-110); Magnesium 1.2 mg/dL (1.6-2.6); Phosphorus 2.6 mg/dL (2.3-4.7); Protein, Total 5.9 g/dL (5.8-8.1); Sodium 137 mmol/L (136-145)
[2017-11-11] MEDS: Enoxaparin Sodium 40 MG/0.4 ML SYRINGE SC SCH (08:53)
[2017-11-11] MEDS: Amiodarone 200 MG TAB PO SCH ×2 (08:53→22:32)
[2017-11-11] MEDS: Metoprolol Tartrate 25 MG TAB PO SCH ×2 (08:54→22:32)
[2017-11-11] MEDS: Pantoprazole 40 MG VIAL IVP SCH ×2 (08:57→22:32)
--- NOTE | 2017-11-11 09:26 | PDOC.FM ---
- Subjective Subjective: Patient doing well, not having stomach pain, nausea, anorexia. He says he tolerated clear liquid yesterday and would like to advance diet. - Objective MAR Reviewed: Yes Vital Signs & Weight: Vital Signs (12 hours) Temp Pulse Resp BP Pulse Ox 11/11/17 08:48 98.3 F 69 18 159/77 H 98 11/11/17 03:26 97.8 F 71 20 132/75 97 11/11/17 02:23 68 16 100 11/11/17 00:00 79 18 149/79 H 11/10/17 22:49 62 16 98 Weight Admit Weight 72.6 kg Weight 68.266 kg Most Recent Monitor Data Heart Rate from ECG 93 NIBP 144/85 NIBP BP-Mean 115 Respiration from ECG 21 SpO2 99 I&O: 11/10/17 11/11/17 11/12/17 06:59 06:59 06:59 Intake Total 2001 60 Output Total 600 Balance 1402 60 Result Diagrams: 11/11/17 04:24 11/11/17 04:24 <Cole Heredia - Last Filed: 11/11/17 09:24> - Objective Vital Signs & Weight: Vital Signs (12 hours) Temp Pulse Resp BP Pulse Ox 11/11/17 08:48 98.3 F 69 18 159/77 H 98 11/11/17 03:26 97.8 F 71 20 132/75 97 11/11/17 02:23 68 16 100 Weight Admit Weight 72.6 kg Weight 68.266 kg Most Recent Monitor Data Heart Rate from ECG 93 NIBP 144/85 NIBP BP-Mean 115 Respiration from ECG 21 SpO2 99 I&O: 11/10/17 11/11/17 11/12/17 06:59 06:59 06:59 Intake Total 2001 60 Output Total 600 Balance 1402 60 Result Diagrams: 11/11/17 04:24 11/11/17 04:24 <Neil Chao - Last Filed: 11/11/17 12:04> Phys Exam - Physical Examination Constitutional: NAD HEENT: moist MMs Neck: no nodes, supple Respiratory: no wheezing, no rales, no rhonchi, clear to auscultation bilateral Cardiovascular: RRR, no rub Gastrointestinal: soft, positive bowel sounds Distended but not painful. Musculoskeletal: no edema Neurological: non-focal, moves all 4 limbs Lymphatic: no nodes Psychiatric: normal affect Skin: no rash <Ly,Cole M - Last Filed: 11/11/17 09:24> Dx/Plan (1) Gastroenteritis Code(s): K52.9 - NONINFECTIVE GASTROENTERITIS AND COLITIS, UNSPECIFIED Status : Acute Plan: EGD came back with shallow ulcer, result currently negative May be viral infection per GI Dobhoff tube was placed to continue feeding. Consider DC as patient now awake Patient received 2 dose of neostigmine. Appreciate GI consult. Diarrhea thought to be caused by colonic distention at this time. Will follow with GI rec on reducing distention. Will follow up with KUB today. (2) Hyperchloremic metabolic acidosis Code(s): E87.2 - ACIDOSIS Status: Acute Plan: Continuing low amount of IV fluid as patient still has diarrhea (3) Respiratory failure requiring intubation Code(s): J96.90 - RESPIRATORY FAILURE, UNSP, UNSP W HYPOXIA OR HYPERCAPNIA Status: Acute Plan: Consider resolved at this point. Patient occasionally has O2 by NC, but has satted well without supplementation. Has resolved (4) Seizure disorder Code(s): G40.909 - EPILEPSY, UNSP, NOT INTRACTABLE, WITHOUT STATUS EPILEPTICUS Status: Acute Plan: Has not had recurrence, may have been from aseptic meningitis vs electrolyte derangement. Will continue to monitor. Has resolved (5) Aseptic meningitis Code(s): G03.0 - NONPYOGENIC MENINGITIS Status: Acute Plan: Currently being covered with acyclovir as this is a possible cause of his AMS and seizure. No change in mentation (6) Afib Code(s): I48.91 - UNSPECIFIED ATRIAL FIBRILLATION Status: Acute Plan: He is being covered with amiodarone and betablocker. He has not had recurrence for past 3 days. It was felt to be a one time event and patient is not on anticoagulation at this time. Will follow with cardiology recommendation. Has not recurred (7) Hyperparathyroidism, secondary Code(s): N25.81 - SECONDARY HYPERPARATHYROIDISM OF RENAL ORIGIN Status: Acute Plan: At this time, unclear etiology. Vit D is normal. Ca when corrected for albumin is normal. CT scan scan did not find abnormalities but paraneoplastic syndrome is possibility. He doesn't have hyperreflexia, tremor or fever. Will reevaluate if clinical condition changes <Ly,Cole M - Last Filed: 11/11/17 09:24> Attending Addendum - Attending Addendum I personally evaluated the patient and discussed the management with Dr. Heredia. I agree with and repeated the History, Examination, Assessment and Plan documented above with any addition or exceptions noted below. Continued diarrhea and distension, but denies pain. Distended, NTTP on exam. XR with continued distension but 10-11 cm this AM. ADAT, attempt to transition to PO electrolytes, repeat XR in the AM <Neil Chao - Last Filed: 11/11/17 12:04>
[2017-11-11] MEDS ORDERED: Magnesium 2 GM/NS 0.9% 100 ML 2 GM in Premix Bag 1 BAG IVPB SCH (09:30)
[2017-11-11] MEDS ORDERED: Potassium Chloride 40 MEQ in Sodium Chloride 0.9% 250 ML 250 ML IVPB SCH (09:30)
--- NOTE | 2017-11-11 10:35 | RAD ---
AP VIEW ABDOMEN: HISTORY: Colonic distension. FINDINGS: Supine view of the abdomen is obtained. Comparison is made to previous exam from 11/09/17. AP view abdomen demonstrates removal of the Dobbhoff feeding tube. The abdominal gas pattern demonst rates extensive gas in the colon. No evidence of bowel obstruction seen otherwise. No dilated loops of small bowel seen. The stomach is not markedly distended. IMPRESSION: A large amount of gas is seen in the ascending and transverse colon. Abdominal gas pattern is otherw ise unremarkable without evidence of significant small bowel dilatation. POS: [facility]
[2017-11-11] MEDS: HumaLOG 300 UNITS/3 ML VIAL SC PRN ×2 (11:52→22:32)
[2017-11-11] MEDS: Magnesium Chloride 64 MG TAB PO SCH ×2 (15:15→22:32)
--- NOTE | 2017-11-11 19:33 | EKG ---
Test Reason : Blood Pressure : / mmHG Vent. Rate : 174 BPM Atrial Rate : 174 BPM P-R Int : 000 ms QRS Dur : 078 ms QT Int : 260 ms P-R-T Axes : 000 -26 133 degrees QTc Int : 442 ms Atrial fibrillation with rapid ventricular response Posterior infarct , age undetermined Marked ST abnormality, possible inferolateral subendocardial injury Abnormal ECG Confirmed by KENDRICK NAYLOR (2) on 11/11/2017 7:32:39 PM Referred By: LEIGH Confirmed By:KENDRICK NAYLOR
--- NOTE | 2017-11-11 19:37 | EKG ---
Test Reason : Blood Pressure : / mmHG Vent. Rate : 073 BPM Atrial Rate : 073 BPM P-R Int : 148 ms QRS Dur : 088 ms QT Int : 468 ms P-R-T Axes : 025 -20 054 degrees QTc Int : 515 ms Normal sinus rhythm Prolonged QT Abnormal ECG When compared with ECG of 03-NOV-2017 12:53, (Unconfirmed) Sinus rhythm has replaced Atrial fibrillation Vent. rate has decreased BY [address] less depressed in Inferior leads ST no longer depressed in Anterolateral leads T wave inversion no longer evident in Lateral leads Confirmed by KENDRICK NAYLOR (2) on 11/11/2017 7:37:13 PM Referred By: RANDY Confirmed By:KENDRICK NAYLOR
--- NOTE | 2017-11-11 19:42 | PRG ---
DATE OF SERVICE: 11/11/2017 SUBJECTIVE: Mr. Bahena is gradually having his diet advanced. OBJECTIVE: VITAL SIGNS: He is afebrile. Heart rate 60, respiratory rate is 18, oximetry 99%, blood pressure 14 9/76. LUNGS: Clear. We changed his nebulizer treatments p.r.n. HEART: Regular rhythm. ABDOMEN: Soft. He is still tympanitic. He still has ascending and transverse colon distention on h is radiograph. IMPRESSION: 1. Colonic ileus. 2. Recent viral illness with probable meningitis/encephalitis which is mild and transient. 3. Seizure most likely related to that. 4. Probable irritable bowel with diarrhea chronically. Says he has had intermittent diarrhea in who le adult life. 5. Transient atrial fibrillation. PLAN: We will continue current care measures. I think he is medically stable from my standpoint. Maribell adkins probably can be transferred back over to the [place] [facility] at some point.
--- NOTE | 2017-11-11 21:19 | PRG ---
DATE OF SERVICE: 11/11/2017 REASON FOR CONSULTATION: Diarrhea, duodenal ulceration, and colonic distention SUBJECTIVE: No acute events or problems overnight with the patient is feeling well this morning. He has noticed that his abdomen is slightly more distended, especially after eating meals, but denies any increased abdominal pain associated with this. At this point, he denies any abdominal pain, nausea, vomiting, fevers, chills, odynophagia, or dysphagia. No stated events of melena , hematochezia, or hematemesis well. OBJECTIVE: VITAL SIGNS: Temperature 98.3, pulse 68, blood pressure 160/76, respiratory rate 18, and satting 97% on room air. GENERAL: The patient is awake and alert and oriented x4, able to converse effectively. NECK: Supple. No JVD noted. CARDIOVASCULAR: Regular rate and rhythm with no discernible murmurs, gallops, or rubs. RESPIRATORY: Minimal. LUNGS: Coarse breath sounds auscultated in upper lung connell. No discernible wheezes or rales. ABDOMEN: Soft, nontender, moderate distention in all abdominal quadrants, but no pain to palpation. Tympanic to percussion. EXTREMITIES: No cyanosis, clubbing, or edema. LABORATORY DATA: CBC with a white blood cell count of 16.7, hemoglobin 10.7, hematocrit 32.1, platelets 355. Chemistry with a sodium of 137, potassium 3, chloride 105, carbon dioxide 25, BUN 16, creatinine 0.98, glucose 112, AST 23, ALT 31, alkaline phosphatase 32, total bilirubin 0.5. IMAGING STUDIES: Abdominal x-ray obtained on 11/11/2017 showing a large amount of gas seen in the ascending and transverse colon. The abdominal gas pattern is otherwise unremarkable without evidence of significant small-bowel dilatation. Per my read, there is no significant change from the KUB obtained on 11/09/2017. ASSESSMENT AND PLAN: The patient is a 72-year-old male with past medical history of hypertension, diabetes, gastroesophageal reflux disease, and irritable bowel syndrome, who presenting with acute viral meningitis as well as severe diarrhea with associated electrolyte abnormalities and significant colonic distention, most likely from [place] syndrome. Severe diarrhea. Patient initially presented with significant diarrhea prior to admission that was felt to be contributing to significant electrolyte abnormalities seen at the referring institution and was one of the reasons for transfer. Infectious Stool workup was negative for Campylobacter, Clostridium difficile, E. coli, seminoma and Shigella. However, upon review of imaging, he was noted to have some significant colonic distention that was echoed in the further imaging studies that have been obtained during his hospitalization. At this point, the etiology of his diarrhea is unclear, but most likely due to increased colonic distention, loss of haustral markings and deep compartment elevation of the colon leading to decreased surface area for absorption of water , which then subsequently creates diarrhea. RECOMMENDATIONS: We would continue to advance diet as tolerated with discontinuation of IV fluids as the patient is tolerating oral intake. Empiric antibiotic therapy is not indicated at this time. Abnormal GI imaging/colonic pseudo-obstruction. The patient initially presented with CT findings on admission showing mucosal prominence and adjacent fluid stranding within the distal stomach and proximal duodenum. Subsequent EGD showed a large duodenal bulb ulceration without the presence of high risk stigmata of bleeding as well as ulcerations in the stomach, most consistent with OG tube trauma. However, also noted on initial imaging was significant colonic distention that has been echoed on further imaging during this admission with the most recent KUB on 11/11/2017 showing significant colonic distention of the ascending and transverse colon. He ultimately underwent neostigmine administration x2 doses with a modest improvement in the frequency of his bowel movements and some improvement in colonic distention as noted on KUB. At this time, Jose syndrome is the most likely etiology secondary to viral meningitis given the unchanged status of his colonic distention on the most recent KUB. Colonoscopy with placement of a colonic decompression tube is not indicated at this time. 1. We would advance the patient's feeds as tolerated as above. 2. We would continue to monitor clinical status with serial abdominal exams. We would consider repeat imaging during this hospital stay. 3. We would refrain from any antimotility agents given colonic pseudo- obstruction and possible worsening with these medications. 4. Continue PPI daily for duodenal ulceration. 5. Can have patient follow up in Gi clinic in 4 weeks after discharge for re- evaluation and possible repeat upper endoscopy to ensure ulcer healing We will sign off at this time. Please call with any questions or any changes in the patient's clinical status. [facility]
[2017-11-11] MEDS: Sodium Chloride 0.45% 1,000 ML IV SCH (22:35)
[2017-11-12 05:29] LABS: #Basophils 0.1 thou/uL (0.0-0.2); #Eosinphils 0.3 thou/uL (0.0-0.7); #Lymphocytes 2.8 thou/uL (1.20-3.40); #Monocytes 1.5 thou/uL (0.11-0.59); #Neutrophils 10.6 thou/uL (1.40-6.50); %Basophils 0.4 % (0.0-1.0); %Eosinophils 2.3 % (0.0-10.0); %Lymphocytes 18.3 % (21.0-51.0); %Monocytes 9.7 % (0.0-10.0); %Neutrophils 69.4 % (42.0-75.0); Hemoglobin 11.2 g/dL (14.0-18.0); Mean Corpuscular HGB CONC 34.4 g/dL (32.0-36.0); Mean Platelet Volume 7.8 fL (7.4-10.4); Platelet Count 378 thou/uL (130-400); RBC Distribution Width 12.3 % (11.5-14.5); Red Blood Cell (RBC) Count 3.29 mill/uL (4.70-6.10); White Blood Cell (WBC) Count 15.3 thou/uL (4.8-10.8)
[2017-11-12 05:35] LABS: ALT (SGPT) 34 U/L (8-55); AST (SGOT) 23 U/L (5-34); Albumin 3.5 g/dL (3.4-4.8); Alkaline Phosphatase 39 U/L (40-150); Anion Gap 12 mmol/L (10-20); BUN (Urea Nitrogen) 12 mg/dL (8.4-25.7); Bilirubin, Total 0.7 mg/dL (0.2-1.2); Calc. Creatinine Clearance 66 mL/min (70-130); Calcium 8.7 mg/dL (7.8-10.44); Carbon Dioxide 22 mmol/L (23-31); Chloride 106 mmol/L (98-107); Estimated GFR-MDRD 77; Globulin 2.8 g/dL (2.4-3.5); Glucose 116 mg/dL (83-110); Magnesium 1.6 mg/dL (1.6-2.6); Phosphorus 2.9 mg/dL (2.3-4.7); Protein, Total 6.3 g/dL (5.8-8.1); Sodium 137 mmol/L (136-145)
[2017-11-12 05:38] LABS: Potassium 2.9 mmol/L (3.5-5.1)
[2017-11-12] MEDS ORDERED: Potassium Chloride 20 MEQ TAB PO SCH ×3 (09:00→12:00)
[2017-11-12] MEDS ORDERED: (Gluc Su/Chondro Su A/Vit C/Mn [Glucosamine 1,500 Complex Capsu PO SCH (09:00)
[2017-11-12] MEDS: Amiodarone 200 MG TAB PO SCH ×2 (09:03→22:28)
[2017-11-12] MEDS: Enoxaparin Sodium 40 MG/0.4 ML SYRINGE SC SCH (09:03)
[2017-11-12] MEDS: Ascorbic Acid 500 mg Chewable Tablet PO SCH (09:03)
[2017-11-12] MEDS: Pantoprazole 40 MG VIAL IVP SCH ×2 (09:04→22:38)
[2017-11-12] MEDS: Magnesium Chloride 64 MG TAB PO SCH ×3 (09:04→21:59)
[2017-11-12] MEDS: Vitami E (Dl,Tocopheryl Acet) 400 UNITS CAP PO SCH (09:04)
[2017-11-12] MEDS: Metoprolol Tartrate 25 MG TAB PO SCH (09:04)
[2017-11-12] MEDS: Potassium Chloride 20 MEQ TAB PO SCH ×2 (09:06→11:52)
--- NOTE | 2017-11-12 12:46 | PDOC.FM ---
- Subjective Subjective: Patient is doing well, was seen walking the [place]. He denies having chest pain, sob, or problem with diarrhea. He says that his BM has returned to the usual amount 2-3 times a day. - Objective MAR Reviewed: Yes Vital Signs & Weight: Vital Signs (12 hours) Temp Pulse Resp BP BP BP Pulse Ox 11/12/17 11:47 160/76 H 11/12/17 11:01 98.2 F 60 16 170/81 H 99 11/12/17 08:59 98.3 F 70 18 162/86 H 97 11/12/17 08:54 98.2 F 60 16 174/90 H 162/86 H 97 11/12/17 03:59 98.5 F 62 20 158/78 H 97 Weight Admit Weight 72.6 kg Weight 68.266 kg Most Recent Monitor Data Heart Rate from ECG 93 NIBP 144/85 NIBP BP-Mean 115 Respiration from ECG 21 SpO2 99 I&O: 11/11/17 11/12/17 11/13/17 06:59 06:59 06:59 Intake Total 60 720 Output Total 800 Balance 60 -80 Result Diagrams: 11/12/17 04:23 11/12/17 04:23 <Cole Heredia M - Last Filed: 11/12/17 12:44> - Objective Vital Signs & Weight: Vital Signs (12 hours) Temp Pulse Resp BP BP BP Pulse Ox 11/12/17 16:11 99.3 F 64 16 165/77 H 97 11/12/17 11:47 160/76 H 11/12/17 11:01 98.2 F 60 16 170/81 H 99 11/12/17 08:59 98.3 F 70 18 162/86 H 97 11/12/17 08:54 98.2 F 60 16 174/90 H 162/86 H 97 Weight Admit Weight 72.6 kg Weight 68.266 kg Most Recent Monitor Data Heart Rate from ECG 93 NIBP 144/85 NIBP BP-Mean 115 Respiration from ECG 21 SpO2 99 I&O: 11/11/17 11/12/17 11/13/17 06:59 06:59 06:59 Intake Total 60 720 1200 Output Total 800 800 Balance 60 -80 400 Result Diagrams: 11/12/17 04:23 11/12/17 15:32 <Neil Chao - Last Filed: 11/12/17 20:40> Phys Exam - Physical Examination Constitutional: NAD HEENT: moist MMs Neck: no nodes, supple Respiratory: no wheezing, no rales, no rhonchi Cardiovascular: RRR, no rub Gastrointestinal: soft Musculoskeletal: no edema Neurological: non-focal, moves all 4 limbs Lymphatic: no nodes Psychiatric: normal affect Skin: no rash <GiovannaCole - Last Filed: 11/12/17 12:44> Dx/Plan (1) Gastroenteritis Code(s): K52.9 - NONINFECTIVE GASTROENTERITIS AND COLITIS, UNSPECIFIED Status : Acute Plan: Patient is back to normal BM. He states he's eating and holding food down. Diet advanced. Will see how he tolerate it. (2) Hyperchloremic metabolic acidosis Code(s): E87.2 - ACIDOSIS Status: Acute Plan: Will discontinue fluid today. (3) Respiratory failure requiring intubation Code(s): J96.90 - RESPIRATORY FAILURE, UNSP, UNSP W HYPOXIA OR HYPERCAPNIA Status: Acute Plan: Considered resolved (4) Seizure disorder Code(s): G40.909 - EPILEPSY, UNSP, NOT INTRACTABLE, WITHOUT STATUS EPILEPTICUS Status: Acute Plan: Has not had recurrence, may have been from aseptic meningitis vs electrolyte derangement. Will continue to monitor. Has resolved (5) Aseptic meningitis Code(s): G03.0 - NONPYOGENIC MENINGITIS Status: Acute Plan: Currently being covered with acyclovir as this is a possible cause of his AMS and seizure. No change in mentation (6) Afib Code(s): I48.91 - UNSPECIFIED ATRIAL FIBRILLATION Status: Acute Plan: He is being covered with amiodarone and betablocker. He has not had recurrence for past 3 days. It was felt to be a one time event and patient is not on anticoagulation at this time. Will follow with cardiology recommendation. Has not recurred (7) Hyperparathyroidism, secondary Code(s): N25.81 - SECONDARY HYPERPARATHYROIDISM OF RENAL ORIGIN Status: Acute Plan: At this time, unclear etiology. Vit D is normal. Ca when corrected for albumin is normal. CT scan scan did not find abnormalities but paraneoplastic syndrome is possibility. He doesn't have hyperreflexia, tremor or fever. Will reevaluate if clinical condition changes <Cole Heredia Frankie - Last Filed: 11/12/17 12:44> Attending Addendum - Attending Addendum I personally evaluated the patient and discussed the management with Dr. Heredia. I agree with and repeated the History, Examination, Assessment and Plan documented above with any addition or exceptions noted below. He is doing really well this morning. No complaints. Abd soft, BS+, NTTP, still distended. His [place]'s is slowly improving. Electrolyte abnormalities are stable/ improving as well and we are transitioning to PO repletion. No recurrence of Afib. DVT/GI ppx. Discharge in 1-2 days if continued improvement. <Neil Chao - Last Filed: 11/12/17 20:40>
[2017-11-12] MEDS: Sodium Chloride 0.45% 1,000 ML IV SCH (14:33)
[2017-11-12 16:06] LABS: Anion Gap 11 mmol/L (10-20); BUN (Urea Nitrogen) 12 mg/dL (8.4-25.7); Calc. Creatinine Clearance 70 mL/min (70-130); Calcium 8.8 mg/dL (7.8-10.44); Carbon Dioxide 20 mmol/L (23-31); Chloride 106 mmol/L (98-107); Estimated GFR-MDRD 82; Glucose 104 mg/dL (83-110); Potassium 3.4 mmol/L (3.5-5.1); Sodium 134 mmol/L (136-145)
[2017-11-12] MEDS: Metoprolol Tartrate 50 MG TAB PO SCH (22:29)
[2017-11-13 05:09] LABS: #Eosinphils 0.4 thou/uL (0.0-0.7); #Lymphocytes 1.7 thou/uL (1.20-3.40); #Monocytes 1.1 thou/uL (0.11-0.59); #Neutrophils 5.8 thou/uL (1.40-6.50); %Basophils 0.5 % (0.0-1.0); %Eosinophils 4.6 % (0.0-10.0); %Lymphocytes 18.6 % (21.0-51.0); %Neutrophils 64.3 % (42.0-75.0); Hemoglobin 10.3 g/dL (14.0-18.0); Mean Corpuscular HGB CONC 33.9 g/dL (32.0-36.0); Mean Corpuscular Hemoglobin 32.6 pg (27.0-31.0); Mean Corpuscular Volume 96.2 fl (80.0-94.0); Mean Platelet Volume 6.2 fL (7.4-10.4); Platelet Count 210 thou/uL (130-400); RBC Distribution Width 11.7 % (11.5-14.5); Red Blood Cell (RBC) Count 3.16 mill/uL (4.70-6.10)
[2017-11-13 05:19] LABS: ALT (SGPT) 17 U/L (8-55); AST (SGOT) 23 U/L (5-34); Albumin 3.5 g/dL (3.4-4.8); Alkaline Phosphatase 47 U/L (40-150); Anion Gap 13 mmol/L (10-20); BUN (Urea Nitrogen) 27 mg/dL (8.4-25.7); Bilirubin, Total 0.8 mg/dL (0.2-1.2); Calc. Creatinine Clearance 59 mL/min (70-130); Calcium 8.7 mg/dL (7.8-10.44); Carbon Dioxide 24 mmol/L (23-31); Chloride 100 mmol/L (98-107); Estimated GFR-MDRD 68; Globulin 2.1 g/dL (2.4-3.5); Glucose 97 mg/dL (83-110); Magnesium 1.9 mg/dL (1.6-2.6); Phosphorus 3.2 mg/dL (2.3-4.7); Potassium 3.5 mmol/L (3.5-5.1); Protein, Total 5.6 g/dL (5.8-8.1); Sodium 133 mmol/L (136-145)
--- NOTE | 2017-11-13 07:14 | PDOC.FM ---
- Subjective Subjective: Pt states that he feels better today than yesterday. He complains of continued diarrhea that is watery in nature, however it has improved somewhat from yesterday. He denies SOB, chest pain, n/v and all other symptoms in ROS other than diarrhea. There were no acute events over night. - Objective Vital Signs & Weight: Vital Signs (12 hours) Temp Pulse Resp BP Pulse Ox 11/13/17 03:33 97.4 F L 58 L 18 152/80 H 97 11/12/17 20:00 98.7 F 79 16 148/78 H 98 Weight Admit Weight 72.6 kg Weight 68.266 kg Most Recent Monitor Data Heart Rate from ECG 93 NIBP 144/85 NIBP BP-Mean 115 Respiration from ECG 21 SpO2 99 I&O: 11/12/17 11/13/17 11/14/17 06:59 06:59 06:59 Intake Total 720 1200 Output Total 800 800 Balance -80 400 Result Diagrams: 11/13/17 04:20 11/13/17 04:20 <Teodoro Lin - Last Filed: 11/13/17 07:13> - Objective Vital Signs & Weight: Vital Signs (12 hours) Temp Pulse Pulse Pulse Resp BP BP 11/13/17 10:50 97.7 F 66 17 11/13/17 10:29 66 62 166/78 H 165/73 H 11/13/17 08:00 98.2 F 70 19 11/13/17 03:33 97.4 F L 58 L 18 BP Pulse Ox 11/13/17 10:50 166/78 H 99 11/13/17 10:29 11/13/17 08:00 140/66 98 11/13/17 03:33 152/80 H 97 Weight Admit Weight 72.6 kg Weight 68.266 kg Most Recent Monitor Data Heart Rate from ECG 93 NIBP 144/85 NIBP BP-Mean 115 Respiration from ECG 21 SpO2 99 I&O: 11/12/17 11/13/17 11/14/17 06:59 06:59 06:59 Intake Total 720 2220 Output Total 800 1300 Balance -80 920 Result Diagrams: 11/13/17 04:20 11/13/17 04:20 <Neil Chao - Last Filed: 11/13/17 14:41> Phys Exam - Physical Examination Constitutional: NAD HEENT: PERRLA, moist MMs Neck: no nodes Respiratory: clear to auscultation bilateral Cardiovascular: RRR, no significant murmur Gastrointestinal: soft, non-tender moderatly distended, hyperactive bs Musculoskeletal: no edema Neurological: non-focal, normal sensation, moves all 4 limbs Psychiatric: normal affect, A&O x 3 Skin: no rash <Teodoro Lin - Last Filed: 11/13/17 07:13> Dx/Plan (1) Aseptic meningitis Code(s): G03.0 - NONPYOGENIC MENINGITIS Status: Resolved (2) Afib Code(s): I48.91 - UNSPECIFIED ATRIAL FIBRILLATION Status: Resolved (3) Gastroenteritis Code(s): K52.9 - NONINFECTIVE GASTROENTERITIS AND COLITIS, UNSPECIFIED Status : Chronic (4) Hyperchloremic metabolic acidosis Code(s): E87.2 - ACIDOSIS Status: Resolved (5) Hyperparathyroidism, secondary Code(s): N25.81 - SECONDARY HYPERPARATHYROIDISM OF RENAL ORIGIN Status: Chronic (6) Seizure disorder Code(s): G40.909 - EPILEPSY, UNSP, NOT INTRACTABLE, WITHOUT STATUS EPILEPTICUS Status: Acute (7) Hypokalemia Code(s): E87.6 - HYPOKALEMIA Status: Resolved - Plan Plan: 1. Gastroenteritis - pt is about to baseline as he has a chronic diarrhea that has had extensive outpt work up - continue to advance diet, tolerating well 2. Hypokalemia - resolved 3. Seizure disorder - has had no episodes since admission here - possibly related to meningitis 4. aseptic meningitis - continue acyclovir - unclear as to this diagnosis vs significant electrolyte disturbance as etiology of initial AMS 5. afib - monitor on tele - has had no recurrence 6. physical deconditioning - continue pt - consider placement in inpt rehab dispo: pt is improving well and currently stable. Electrolytes are largely normal and pt is tolerating PO intake. Pt will likely be ready for dc 1-2 days pending PT requirement. <Teodoro Lin - Last Filed: 11/13/17 07:13> Attending Addendum - Attending Addendum I personally evaluated the patient and discussed the management with Dr. Lin. I agree with and repeated the History, Examination, Assessment and Plan documented above with any addition or exceptions noted below. Doing well this morning. No cp/sob/palps/n/v/abd pain. Feels better than yesterday and has been walking a lot. [place]'s: improving Electrolyte abnormalities: Mg/K tolerating PO replacement, Hyponatremia stable, repeat in AM Afib: resolved DM: stable Aseptic meningitis: resolved, d/c acyclovir Hyper PTH: discussed in detail with patient today, will need outpatient workup Likely d/c tomorrow. DV/GI ppx. <Neil Chao - Last Filed: 11/13/17 14:41>
[2017-11-13] MEDS ORDERED: Potassium Chloride 20 MEQ TAB PO SCH (08:00)
[2017-11-13] MEDS: Metoprolol Tartrate 50 MG TAB PO SCH ×2 (09:26→22:26)
[2017-11-13] MEDS: Amiodarone 200 MG TAB PO SCH ×2 (09:26→22:26)
[2017-11-13] MEDS: Enoxaparin Sodium 40 MG/0.4 ML SYRINGE SC SCH (09:26)
[2017-11-13] MEDS: Losartan 25 MG TAB PO SCH (09:26)
[2017-11-13] MEDS: Vitami E (Dl,Tocopheryl Acet) 400 UNITS CAP PO SCH (09:26)
[2017-11-13] MEDS: Ascorbic Acid 500 mg Chewable Tablet PO SCH (09:26)
[2017-11-13] MEDS: Pantoprazole 40 MG VIAL IVP SCH ×2 (09:27→22:26)
[2017-11-13] MEDS: Magnesium Chloride 64 MG TAB PO SCH ×3 (09:27→22:27)
[2017-11-13] MEDS: Sodium Chloride 0.45% 1,000 ML IV SCH (16:30)
[2017-11-14 05:12] LABS: #Eosinphils 0.1 thou/uL (0.0-0.7); #Lymphocytes 1.8 thou/uL (1.20-3.40); #Monocytes 1.2 thou/uL (0.11-0.59); #Neutrophils 16.3 thou/uL (1.40-6.50); %Basophils 0.2 % (0.0-1.0); %Eosinophils 0.6 % (0.0-10.0); %Lymphocytes 9.2 % (21.0-51.0); %Monocytes 6.2 % (0.0-10.0); %Neutrophils 83.7 % (42.0-75.0); Hemoglobin 11.6 g/dL (14.0-18.0); Mean Corpuscular HGB CONC 33.8 g/dL (32.0-36.0); Mean Corpuscular Hemoglobin 33.7 pg (27.0-31.0); Mean Corpuscular Volume 99.6 fl (80.0-94.0); Mean Platelet Volume 7.7 fL (7.4-10.4); Platelet Count 486 thou/uL (130-400); RBC Distribution Width 13.1 % (11.5-14.5); Red Blood Cell (RBC) Count 3.44 mill/uL (4.70-6.10); White Blood Cell (WBC) Count 19.5 thou/uL (4.8-10.8)
[2017-11-14 05:30] LABS: ALT (SGPT) 35 U/L (8-55); AST (SGOT) 17 U/L (5-34); Albumin 3.5 g/dL (3.4-4.8); Alkaline Phosphatase 44 U/L (40-150); Anion Gap 12 mmol/L (10-20); BUN (Urea Nitrogen) 13 mg/dL (8.4-25.7); Bilirubin, Total 0.6 mg/dL (0.2-1.2); Calc. Creatinine Clearance 58 mL/min (70-130); Calcium 9.2 mg/dL (7.8-10.44); Carbon Dioxide 22 mmol/L (23-31); Chloride 107 mmol/L (98-107); Estimated GFR-MDRD 68; Glucose 136 mg/dL (83-110); Magnesium 1.3 mg/dL (1.6-2.6); Protein, Total 6.5 g/dL (5.8-8.1); Sodium 138 mmol/L (136-145)
[2017-11-14 05:34] LABS: Potassium 2.7 mmol/L (3.5-5.1)
[2017-11-14 05:35] LABS: CKMB 1.8 ng/mL (0-6.6); Troponin I Less than 0.010 ng/mL (< 0.028)
[2017-11-14] MEDS ORDERED: Potassium Chloride 40 MEQ in Sodium Chloride 0.9% 500 ML IVPB SCH ×4 (06:00)
--- NOTE | 2017-11-14 07:43 | PDOC.FM ---
- Subjective Subjective: Pt states that he started having n/v over night in addition to continued diarrhea. He denies abd pain, fever, chills. All other symptoms in ROS were negative. Over night tele noted an increasing QT to 0.6 - Objective MAR Reviewed: Yes Vital Signs & Weight: Vital Signs (12 hours) Temp Pulse Resp BP Pulse Ox 11/14/17 03:59 98.0 F 54 L 18 150/75 H 97 11/14/17 00:00 98.1 F 54 L 18 139/73 96 11/13/17 20:10 98.3 F 54 L 17 99 Weight Admit Weight 72.6 kg Weight 68.266 kg Most Recent Monitor Data Heart Rate from ECG 93 NIBP 144/85 NIBP BP-Mean 115 Respiration from ECG 21 SpO2 99 I&O: 11/13/17 11/14/17 11/15/17 06:59 06:59 06:59 Intake Total 2220 1360 Output Total 1300 1680 Balance 920 -320 Result Diagrams: 11/14/17 04:20 11/14/17 04:20 EKG Reviewed by me: Yes (Long QT) <Teodoro Lin - Last Filed: 11/14/17 07:41> - Objective Vital Signs & Weight: Vital Signs (12 hours) Temp Pulse Resp BP Pulse Ox 11/14/17 08:00 98.6 F 62 19 130/73 98 11/14/17 03:59 98.0 F 54 L 18 150/75 H 97 11/14/17 00:00 98.1 F 54 L 18 139/73 96 Weight Admit Weight 72.6 kg Weight 68.266 kg Most Recent Monitor Data Heart Rate from ECG 93 NIBP 144/85 NIBP BP-Mean 115 Respiration from ECG 21 SpO2 99 I&O: 11/13/17 11/14/17 11/15/17 06:59 06:59 06:59 Intake Total 2220 1360 Output Total 1300 1680 Balance 920 -320 Result Diagrams: 11/14/17 04:20 11/14/17 04:20 <Neil Chao - Last Filed: 11/14/17 11:30> Phys Exam - Physical Examination Constitutional: NAD HEENT: PERRLA, moist MMs Neck: no JVD, full ROM Respiratory: clear to auscultation bilateral Cardiovascular: RRR, no significant murmur Gastrointestinal: soft, non-tender mild distention, hyperactive bs Musculoskeletal: no edema Neurological: non-focal, moves all 4 limbs Psychiatric: normal affect, A&O x 3 Skin: no rash <Teodoro Lin - Last Filed: 11/14/17 07:41> Dx/Plan (1) Aseptic meningitis Code(s): G03.0 - NONPYOGENIC MENINGITIS Status: Resolved (2) Afib Code(s): I48.91 - UNSPECIFIED ATRIAL FIBRILLATION Status: Resolved (3) Gastroenteritis Code(s): K52.9 - NONINFECTIVE GASTROENTERITIS AND COLITIS, UNSPECIFIED Status : Chronic (4) Hyperchloremic metabolic acidosis Code(s): E87.2 - ACIDOSIS Status: Resolved (5) Hyperparathyroidism, secondary Code(s): N25.81 - SECONDARY HYPERPARATHYROIDISM OF RENAL ORIGIN Status: Chronic (6) Seizure disorder Code(s): G40.909 - EPILEPSY, UNSP, NOT INTRACTABLE, WITHOUT STATUS EPILEPTICUS Status: Acute (7) Hypokalemia Code(s): E87.6 - HYPOKALEMIA Status: Chronic (8) Nausea & vomiting Code(s): R11.2 - NAUSEA WITH VOMITING, UNSPECIFIED Status: Acute - Plan Plan: 1. Gastroenteritis - pt is about to baseline as he has a chronic diarrhea that has had extensive outpt work up - Move diet to bland/clears dt new onset n/v - hold zofran dt long qt - continue to monitor throughout day 2. Hypokalemia - Mg low in addition to K - replace both this morning - Recheck in PM 3. Seizure disorder - has had no episodes since admission here - possibly related to meningitis 4. aseptic meningitis - continue acyclovir - unclear as to this diagnosis vs significant electrolyte disturbance as etiology of initial AMS 5. afib - monitor on tele - has had no recurrence 6. physical deconditioning - continue pt. Home with pt at time of dc dispo: pt is improving well and currently stable. Electrolytes continue to be difficult to control. Will reevaluate tomorrow. <Teodoro Lin - Last Filed: 11/14/17 07:41> Attending Addendum - Attending Addendum I personally evaluated the patient and discussed the management with Dr. Lin. I agree with and repeated the History, Examination, Assessment and Plan documented above with any addition or exceptions noted below. Episode of emesis overnight, which is new. Resolved now and he feels great and ate a bit of breakfast. Abd softer today, BS normoactive, NTTP. N/v, unsure etiology - limited on antiemetics because of QTc QT prolongation - likely 2/2 his electrolyte abnormalities, new, replete lytes hypoK and hypoMg - replete PO and IV Unfortunate step back, will replete and recheck ECG and BMP this afternoon. <Neil Chao - Last Filed: 11/14/17 11:30>
[2017-11-14] MEDS: Enoxaparin Sodium 40 MG/0.4 ML SYRINGE SC SCH (08:38)
[2017-11-14] MEDS: Pantoprazole 40 MG VIAL IVP SCH ×2 (08:39→21:44)
[2017-11-14] MEDS: Ascorbic Acid 500 mg Chewable Tablet PO SCH (08:39)
[2017-11-14] MEDS: Vitami E (Dl,Tocopheryl Acet) 400 UNITS CAP PO SCH (08:39)
[2017-11-14] MEDS: Losartan 25 MG TAB PO SCH (08:39)
[2017-11-14] MEDS: Magnesium Chloride 64 MG TAB PO SCH ×3 (10:24→21:42)
[2017-11-14] MEDS: Metoprolol Tartrate 50 MG TAB PO SCH ×2 (10:26→21:44)
[2017-11-14] MEDS: Amiodarone 200 MG TAB PO SCH ×2 (10:26→21:43)
[2017-11-14 16:40] LABS: #Eosinphils 0.2 thou/uL (0.0-0.7); #Lymphocytes 2.9 thou/uL (1.20-3.40); #Monocytes 0.9 thou/uL (0.11-0.59); %Basophils 0.3 % (0.0-1.0); %Eosinophils 1.1 % (0.0-10.0); %Lymphocytes 17.2 % (21.0-51.0); %Monocytes 5.2 % (0.0-10.0); %Neutrophils 76.3 % (42.0-75.0); Hemoglobin 12.4 g/dL (14.0-18.0); Mean Corpuscular HGB CONC 34.8 g/dL (32.0-36.0); Mean Corpuscular Hemoglobin 34.7 pg (27.0-31.0); Mean Corpuscular Volume 99.9 fl (80.0-94.0); Mean Platelet Volume 7.7 fL (7.4-10.4); Platelet Count 553 thou/uL (130-400); RBC Distribution Width 13.2 % (11.5-14.5); Red Blood Cell (RBC) Count 3.56 mill/uL (4.70-6.10)
[2017-11-14 17:00] LABS: Anion Gap 15 mmol/L (10-20); BUN (Urea Nitrogen) 15 mg/dL (8.4-25.7); Calc. Creatinine Clearance 57 mL/min (70-130); Calcium 9.1 mg/dL (7.8-10.44); Carbon Dioxide 19 mmol/L (23-31); Chloride 108 mmol/L (98-107); Estimated GFR-MDRD 66; Glucose 85 mg/dL (83-110); Magnesium 1.6 mg/dL (1.6-2.6); Sodium 139 mmol/L (136-145)
[2017-11-14 17:06] LABS: Potassium 2.8 mmol/L (3.5-5.1)
[2017-11-14] MEDS ORDERED: Potassium Chloride 40 MEQ in Premix Bag 1 BAG IVPB SCH (17:15)
[2017-11-14] MEDS ORDERED: Potassium Chloride 20 MEQ TAB PO SCH (17:20)
[2017-11-15 04:49] LABS: #Basophils 0.1 thou/uL (0.0-0.2); #Eosinphils 0.2 thou/uL (0.0-0.7); #Lymphocytes 2.7 thou/uL (1.20-3.40); #Monocytes 0.8 thou/uL (0.11-0.59); #Neutrophils 9.5 thou/uL (1.40-6.50); %Basophils 0.6 % (0.0-1.0); %Eosinophils 1.4 % (0.0-10.0); %Lymphocytes 20.2 % (21.0-51.0); %Monocytes 6.3 % (0.0-10.0); %Neutrophils 71.5 % (42.0-75.0); Hemoglobin 10.7 g/dL (14.0-18.0); Mean Corpuscular HGB CONC 34.4 g/dL (32.0-36.0); Mean Corpuscular Hemoglobin 34.6 pg (27.0-31.0); Mean Platelet Volume 7.5 fL (7.4-10.4); Platelet Count 476 thou/uL (130-400); RBC Distribution Width 13.3 % (11.5-14.5); Red Blood Cell (RBC) Count 3.08 mill/uL (4.70-6.10); White Blood Cell (WBC) Count 13.3 thou/uL (4.8-10.8)
--- NOTE | 2017-11-15 05:05 | PDOC.FM ---
- Subjective Subjective: Patient had a good night. No further episodes of vomiting. He states he has had chronic diarrhea for roughly 10 years. He only describes 1 episode of diarrhea in the last 24 hours and that is good for him. He denies chest pain, sob, n/v/d , fevers, or cough. He states he feels well and feels like he can go home today. No other complaints offered. - Objective Vital Signs & Weight: Vital Signs (12 hours) Temp Pulse Resp BP Pulse Ox 11/15/17 03:28 97.5 F L 65 19 153/71 H 95 11/14/17 20:05 98.2 F 75 18 142/67 H 98 Weight Admit Weight 72.6 kg Weight 68.266 kg Most Recent Monitor Data Heart Rate from ECG 93 NIBP 144/85 NIBP BP-Mean 115 Respiration from ECG 21 SpO2 99 I&O: 11/13/17 11/14/17 11/15/17 06:59 06:59 06:59 Intake Total 2220 1360 Output Total 1300 1680 Balance 920 -320 Result Diagrams: 11/15/17 04:18 11/15/17 04:18 <Brian Das - Last Filed: 11/15/17 07:46> - Objective Vital Signs & Weight: Vital Signs (12 hours) Temp Pulse Resp BP Pulse Ox 11/15/17 10:43 97.2 F L 52 L 18 129/64 97 11/15/17 08:55 98.5 F 59 L 16 141/67 H 98 11/15/17 03:28 97.5 F L 65 19 153/71 H 95 Weight Admit Weight 72.6 kg Weight 68.266 kg Most Recent Monitor Data Heart Rate from ECG 93 NIBP 144/85 NIBP BP-Mean 115 Respiration from ECG 21 SpO2 99 I&O: 11/14/17 11/15/17 11/16/17 06:59 06:59 06:59 Intake Total 1360 300 Output Total 1680 500 Balance -320 -200 Result Diagrams: 11/15/17 04:18 11/15/17 14:07 <Vicky Awan - Last Filed: 11/15/17 14:57> Phys Exam - Physical Examination HEENT: PERRLA, moist MMs Neck: no nodes, no JVD, supple Respiratory: no wheezing, clear to auscultation bilateral Cardiovascular: RRR, no significant murmur Gastrointestinal: soft, non-tender, no distention, positive bowel sounds Musculoskeletal: no edema, pulses present Neurological: non-focal, normal sensation, moves all 4 limbs Lymphatic: no nodes Psychiatric: normal affect, A&O x 3 Skin: no rash <Brian Das - Last Filed: 11/15/17 07:46> Dx/Plan (1) Aseptic meningitis Code(s): G03.0 - NONPYOGENIC MENINGITIS Status: Resolved (2) Afib Code(s): I48.91 - UNSPECIFIED ATRIAL FIBRILLATION Status: Resolved (3) Diarrhea Code(s): R19.7 - DIARRHEA, UNSPECIFIED Status: Acute QualifierTitle: Diarrhea type: unspecified type Qualified Code(s): R19.7 - Diarrhea, unspecified (4) Nausea & vomiting Code(s): R11.2 - NAUSEA WITH VOMITING, UNSPECIFIED Status: Acute (5) Gastroenteritis Code(s): K52.9 - NONINFECTIVE GASTROENTERITIS AND COLITIS, UNSPECIFIED Status : Chronic (6) Seizure disorder Code(s): G40.909 - EPILEPSY, UNSP, NOT INTRACTABLE, WITHOUT STATUS EPILEPTICUS Status: Acute (7) Hyperparathyroidism, secondary Code(s): N25.81 - SECONDARY HYPERPARATHYROIDISM OF RENAL ORIGIN Status: Chronic (8) Hyperchloremic metabolic acidosis Code(s): E87.2 - ACIDOSIS Status: Resolved (9) Hypokalemia Code(s): E87.6 - HYPOKALEMIA Status: Chronic - Plan Plan: 1. Gastroenteritis - pt is about to baseline as he has a chronic diarrhea that has had extensive outpt work up - Move diet to bland/clears dt new onset n/v - hold zofran dt long qt - 1 episode of diarrhea in 24 hours and no vomiting. 2. Hypokalemia - Mg low in addition to K - K 3.0 & Mg 1.6 - Replaced K this am. 3. Seizure disorder - has had no episodes since admission here - possibly related to meningitis 4. aseptic meningitis - acyclovir discontinued - unclear as to this diagnosis vs significant electrolyte disturbance as etiology of initial AMS 5. afib - monitor on tele - has had no recurrence 6. physical deconditioning - continue PT Home with PT at time of dc dispo: pt is improving well and currently stable. Electrolytes continue to be difficult to control. Will replenish. <Brian Das - Last Filed: 11/15/17 07:46> Attending Addendum - Attending Addendum I personally evaluated the patient and discussed the management with Dr. Das I agree with the History, Examination, Assessment and Plan documented above with any addition or exceptions noted below- Patient feeling well. Denies any further N/V; 1 episode of diarrhea yesterday. Afebrile VSS. A/P: 1) Hypokalemia - improving; continue replacement. 2) Hypomagnesemia- improving; continue replacement. 3) Asymptomatic bradycardia-recheck EKG; replace electrolytes; will hold beta compa and possibly amiodarone. <Vicky Awan - Last Filed: 11/15/17 14:57>
[2017-11-15 05:06] LABS: ALT (SGPT) 27 U/L (8-55); AST (SGOT) 16 U/L (5-34); Albumin 3.2 g/dL (3.4-4.8); Alkaline Phosphatase 39 U/L (40-150); Anion Gap 13 mmol/L (10-20); BUN (Urea Nitrogen) 14 mg/dL (8.4-25.7); Bilirubin, Total 0.4 mg/dL (0.2-1.2); Calc. Creatinine Clearance 58 mL/min (70-130); Calcium 8.3 mg/dL (7.8-10.44); Carbon Dioxide 20 mmol/L (23-31); Chloride 110 mmol/L (98-107); Estimated GFR-MDRD 68; Globulin 2.6 g/dL (2.4-3.5); Glucose 126 mg/dL (83-110); Protein, Total 5.8 g/dL (5.8-8.1); Sodium 140 mmol/L (136-145)
[2017-11-15] MEDS ORDERED: Potassium Chloride 20 MEQ TAB PO SCH ×2 (05:45→17:00)
[2017-11-15 06:02] LABS: Magnesium 1.6 mg/dL (1.6-2.6)
[2017-11-15] MEDS: Losartan 25 MG TAB PO SCH (08:58)
[2017-11-15] MEDS: Ascorbic Acid 500 mg Chewable Tablet PO SCH (08:59)
[2017-11-15] MEDS: Vitami E (Dl,Tocopheryl Acet) 400 UNITS CAP PO SCH (08:59)
[2017-11-15] MEDS: Metoprolol Tartrate 50 MG TAB PO SCH (08:59)
[2017-11-15] MEDS: Magnesium Chloride 64 MG TAB PO SCH ×3 (08:59→21:14)
[2017-11-15] MEDS: Amiodarone 200 MG TAB PO SCH (08:59)
[2017-11-15] MEDS: Pantoprazole 40 MG VIAL IVP SCH ×2 (09:00→21:13)
[2017-11-15] MEDS: Enoxaparin Sodium 40 MG/0.4 ML SYRINGE SC SCH (09:03)
[2017-11-15] MEDS: HumaLOG 300 UNITS/3 ML VIAL SC PRN (11:47)
[2017-11-15 14:36] LABS: Magnesium 1.8 mg/dL (1.6-2.6); Phosphorus 1.9 mg/dL (2.3-4.7); Potassium 3.2 mmol/L (3.5-5.1)
--- NOTE | 2017-11-15 17:23 | PRG ---
DATE OF SERVICE: 11/15/2017 SUBJECTIVE: Mr. Bahena has developed some bradycardia. The medicines for rapid heart rate have been stopped, but his heart rate got down to 47. OBJECTIVE: VITAL SIGNS: Blood pressure 142/67, pulse 53. LUNGS: Clear. CARDIAC: Normal S1 and S2. ASSESSMENT: 1. History of atrial fibrillation with a rapid rate now. 2. Relatively bradycardia. PLAN: Hold discharge for now. Dr. Eid will see tomorrow, may need pacemaker insertion for tach ybrady syndrome.
--- NOTE | 2017-11-15 17:54 | EKG ---
Test Reason : Blood Pressure : / mmHG Vent. Rate : 047 BPM Atrial Rate : 047 BPM P-R Int : 128 ms QRS Dur : 090 ms QT Int : 634 ms P-R-T Axes : -04 017 -06 degrees QTc Int : 561 ms Marked sinus bradycardia with Premature atrial complexes Nonspecific ST abnormality Prolonged QT Abnormal ECG When compared with ECG of 14-NOV-2017 04:12, (Unconfirmed) Premature atrial complexes are now Present Incomplete right bundle branch block is no longer Present Criteria for Septal infarct are no longer Present Nonspecific T wave abnormality, improved in Anterolateral leads Confirmed by BOBBY ROJO, DR. Boyer ([id number]) on 11/15/2017 5:54:09 PM Referred By: AIDA Confirmed By:DR. Rosalind ROSALES MD
[2017-11-16 05:23] LABS: #Basophils 0.1 thou/uL (0.0-0.2); #Eosinphils 0.3 thou/uL (0.0-0.7); #Lymphocytes 2.7 thou/uL (1.20-3.40); #Neutrophils 8.3 thou/uL (1.40-6.50); %Basophils 0.6 % (0.0-1.0); %Eosinophils 2.5 % (0.0-10.0); %Lymphocytes 22.1 % (21.0-51.0); %Monocytes 7.6 % (0.0-10.0); %Neutrophils 67.2 % (42.0-75.0); Hemoglobin 10.7 g/dL (14.0-18.0); Mean Corpuscular HGB CONC 34.3 g/dL (32.0-36.0); Mean Corpuscular Hemoglobin 34.6 pg (27.0-31.0); Mean Platelet Volume 7.7 fL (7.4-10.4); Platelet Count 480 thou/uL (130-400); Red Blood Cell (RBC) Count 3.09 mill/uL (4.70-6.10); White Blood Cell (WBC) Count 12.4 thou/uL (4.8-10.8)
[2017-11-16 05:59] LABS: ALT (SGPT) 25 U/L (8-55); AST (SGOT) 14 U/L (5-34); Albumin 3.2 g/dL (3.4-4.8); Alkaline Phosphatase 40 U/L (40-150); Anion Gap 13 mmol/L (10-20); BUN (Urea Nitrogen) 12 mg/dL (8.4-25.7); Bilirubin, Total 0.4 mg/dL (0.2-1.2); Calc. Creatinine Clearance 67 mL/min (70-130); Calcium 8.5 mg/dL (7.8-10.44); Carbon Dioxide 21 mmol/L (23-31); Chloride 110 mmol/L (98-107); Estimated GFR-MDRD 79; Globulin 2.5 g/dL (2.4-3.5); Glucose 123 mg/dL (83-110); Magnesium 1.4 mg/dL (1.6-2.6); Phosphorus 2.4 mg/dL (2.3-4.7); Potassium 2.7 mmol/L (3.5-5.1); Protein, Total 5.7 g/dL (5.8-8.1); Sodium 141 mmol/L (136-145)
[2017-11-16] MEDS ORDERED: Potassium Chloride 20 MEQ TAB PO SCH ×2 (06:15→17:00)
--- NOTE | 2017-11-16 06:20 | PDOC.FM ---
- Subjective Subjective: Patient states he feels great. His diarrhea has slowed down to less than his normal. He has been up and walking around. He denies any lightheadedness, dizziness, weakness. He denies chest pain, sob, n/v, fevers, or chills. He denies any of the symptoms he gets when he has low electrolyte levels like shakiness. He states he has had a good appetite and doesn't feel like the diarrhea is making him dehydrated. No other concerns this morning. - Objective Vital Signs & Weight: Vital Signs (12 hours) Temp Pulse Resp BP Pulse Ox 11/16/17 04:00 97.4 F L 65 20 147/72 H 97 11/16/17 03:56 98 11/15/17 19:43 98.3 F 60 18 142/67 H 98 Weight Admit Weight 72.6 kg Weight 68.447 kg Most Recent Monitor Data Heart Rate from ECG 93 NIBP 144/85 NIBP BP-Mean 115 Respiration from ECG 21 SpO2 99 I&O: 11/14/17 11/15/17 11/16/17 06:59 06:59 06:59 Intake Total 1360 300 740 Output Total 1680 500 Balance -320 -200 740 Result Diagrams: 11/16/17 04:27 11/16/17 04:27 <Brian Das - Last Filed: 11/16/17 08:15> - Objective Vital Signs & Weight: Vital Signs (12 hours) Temp Pulse Pulse Resp BP BP Pulse Ox 11/16/17 09:21 98 F 73 16 148/67 H 99 11/16/17 08:46 86 184/89 H 11/16/17 04:00 97.4 F L 65 20 147/72 H 97 11/16/17 03:56 98 Pulse Ox 11/16/17 09:21 11/16/17 08:46 99 11/16/17 04:00 11/16/17 03:56 Weight Admit Weight 72.6 kg Weight 68.447 kg Most Recent Monitor Data Heart Rate from ECG 93 NIBP 144/85 NIBP BP-Mean 115 Respiration from ECG 21 SpO2 99 I&O: 11/15/17 11/16/17 11/17/17 06:59 06:59 06:59 Intake Total 300 980 Output Total 500 Balance -200 980 Result Diagrams: 11/16/17 04:27 11/16/17 04:27 <TramainetiffanylizbethVicky - Last Filed: 11/16/17 11:49> Phys Exam - Physical Examination HEENT: moist MMs Neck: no nodes, supple Respiratory: no wheezing, clear to auscultation bilateral Cardiovascular: no significant murmur Bradycardic rate, regular rhythm. Gastrointestinal: soft, non-tender Musculoskeletal: no edema, pulses present Neurological: non-focal, normal sensation, moves all 4 limbs Lymphatic: no nodes Psychiatric: normal affect, A&O x 3 Skin: no rash <Brian Das - Last Filed: 11/16/17 08:15> Dx/Plan (1) Aseptic meningitis Code(s): G03.0 - NONPYOGENIC MENINGITIS Status: Resolved (2) Afib Code(s): I48.91 - UNSPECIFIED ATRIAL FIBRILLATION Status: Resolved (3) Diarrhea Code(s): R19.7 - DIARRHEA, UNSPECIFIED Status: Chronic QualifierTitle: Diarrhea type: unspecified type Qualified Code(s): R19.7 - Diarrhea, unspecified (4) Nausea & vomiting Code(s): R11.2 - NAUSEA WITH VOMITING, UNSPECIFIED Status: Resolved (5) Gastroenteritis Code(s): K52.9 - NONINFECTIVE GASTROENTERITIS AND COLITIS, UNSPECIFIED Status : Chronic (6) Seizure disorder Code(s): G40.909 - EPILEPSY, UNSP, NOT INTRACTABLE, WITHOUT STATUS EPILEPTICUS Status: Acute (7) Hyperparathyroidism, secondary Code(s): N25.81 - SECONDARY HYPERPARATHYROIDISM OF RENAL ORIGIN Status: Chronic (8) Hyperchloremic metabolic acidosis Code(s): E87.2 - ACIDOSIS Status: Resolved (9) Hypokalemia Code(s): E87.6 - HYPOKALEMIA Status: Chronic (10) Bradycardia Code(s): R00.1 - BRADYCARDIA, UNSPECIFIED Status: Acute - Plan Plan: 1. Gastroenteritis - pt is about to baseline as he has a chronic diarrhea that has had extensive outpt work up - Move diet to bland/clears dt new onset n/v - hold zofran dt long qt - 1 episode of diarrhea in 24 hours and no vomiting. 2. Hypokalemia - Mg low in addition to K - K 2.7 & Mg 1.4 - On scheduled replacement of both electrolytes. - Will continue to traack 3. Seizure disorder - has had no episodes since admission here - possibly related to meningitis 4. aseptic meningitis - acyclovir discontinued - unclear as to this diagnosis vs significant electrolyte disturbance as etiology of initial AMS 5. afib - monitor on tele - has had no recurrence 6. physical deconditioning - continue PT Home with PT at time of dc 7. Bradycardia - Cardiology on board, appreciate Dr. Mayo's recs - Dr. Eid will evaluate today for Tachybrady syndrome. dispo: pt is improving well and currently stable. Electrolytes continue to be difficult to control. Will replenish. Will await Cards recs. <Brian Das - Last Filed: 11/16/17 08:15> Attending Addendum - Attending Addendum I personally evaluated the patient and discussed the management with Dr. Das I agree with the History, Examination, Assessment and Plan documented above with any addition or exceptions noted below- Patient without complaints. Minimal diarrhea. Ambulating. Afebrile VSS A/P: 1) Hypokelamia- due to chronic GI losses- continue replacement 40 mEq BID, 2) Hypomagnesemia- Continue replacement. 3) Tachybrady syndrome- appreciate cardiology assistance. Medications adjusted and will continue to monitor. <Vicky Awan - Last Filed: 11/16/17 11:49>
[2017-11-16 08:35] VITALS: BMI 20.5
[2017-11-16] MEDS ORDERED: Magnesium Oxide 400 MG TAB PO SCH (09:00)
[2017-11-16] MEDS: Magnesium Chloride 64 MG TAB PO SCH ×3 (09:31→21:26)
[2017-11-16] MEDS: Amiodarone 200 MG TAB PO SCH ×2 (09:32→21:21)
[2017-11-16] MEDS: Vitami E (Dl,Tocopheryl Acet) 400 UNITS CAP PO SCH (09:32)
[2017-11-16] MEDS: Ascorbic Acid 500 mg Chewable Tablet PO SCH (09:33)
[2017-11-16] MEDS: Pantoprazole 40 MG VIAL IVP SCH ×2 (09:34→21:21)
[2017-11-16] MEDS: Enoxaparin Sodium 40 MG/0.4 ML SYRINGE SC SCH (09:34)
[2017-11-16] MEDS: Losartan 25 MG TAB PO SCH (09:43)
[2017-11-16] MEDS: Metoprolol Tartrate 25 MG TAB PO SCH ×2 (09:43→21:21)
[2017-11-16] MEDS: Potassium Chloride 20 MEQ TAB PO SCH ×2 (12:51→17:30)
[2017-11-16 15:50] LABS: Anion Gap 11 mmol/L (10-20); Calcium 8.7 mg/dL (7.8-10.44); Carbon Dioxide 24 mmol/L (23-31); Chloride 108 mmol/L (98-107); Glucose 106 mg/dL (83-110); Magnesium 1.3 mg/dL (1.6-2.6); Sodium 140 mmol/L (136-145)
[2017-11-16 15:59] LABS: BUN (Urea Nitrogen) 12 mg/dL (8.4-25.7); Calc. Creatinine Clearance 57 mL/min (70-130); Estimated GFR-MDRD 65; Phosphorus 2.3 mg/dL (2.3-4.7)
[2017-11-16] MEDS ORDERED: Magnesium 2 GM/NS 0.9% 100 ML 2 GM in Premix Bag 1 BAG IVPB SCH (16:30)
[2017-11-16] MEDS ORDERED: Potassium Chloride 40 MEQ in Sodium Chloride 0.9% 500 ML IVPB SCH (18:30)
[2017-11-17 04:57] LABS: #Basophils 0.1 thou/uL (0.0-0.2); #Eosinphils 0.1 thou/uL (0.0-0.7); #Lymphocytes 1.4 thou/uL (1.20-3.40); #Monocytes 0.8 thou/uL (0.11-0.59); #Neutrophils 7.4 thou/uL (1.40-6.50); %Basophils 0.7 % (0.0-1.0); %Eosinophils 1.1 % (0.0-10.0); %Lymphocytes 14.1 % (21.0-51.0); %Monocytes 8.3 % (0.0-10.0); %Neutrophils 75.7 % (42.0-75.0); Hemoglobin 10.8 g/dL (14.0-18.0); Mean Corpuscular HGB CONC 34.3 g/dL (32.0-36.0); Mean Corpuscular Hemoglobin 34.2 pg (27.0-31.0); Mean Corpuscular Volume 99.6 fl (80.0-94.0); Mean Platelet Volume 7.6 fL (7.4-10.4); Platelet Count 479 thou/uL (130-400); RBC Distribution Width 13.9 % (11.5-14.5); Red Blood Cell (RBC) Count 3.15 mill/uL (4.70-6.10); White Blood Cell (WBC) Count 9.7 thou/uL (4.8-10.8)
[2017-11-17 05:30] LABS: ALT (SGPT) 24 U/L (8-55); AST (SGOT) 19 U/L (5-34); Albumin 3.4 g/dL (3.4-4.8); Alkaline Phosphatase 42 U/L (40-150); Anion Gap 14 mmol/L (10-20); BUN (Urea Nitrogen) 9 mg/dL (8.4-25.7); Bilirubin, Total 0.4 mg/dL (0.2-1.2); Calc. Creatinine Clearance 70 mL/min (70-130); Calcium 8.4 mg/dL (7.8-10.44); Carbon Dioxide 19 mmol/L (23-31); Chloride 109 mmol/L (98-107); Estimated GFR-MDRD 84; Globulin 2.6 g/dL (2.4-3.5); Glucose 110 mg/dL (83-110); Magnesium 1.7 mg/dL (1.6-2.6); Phosphorus 2.5 mg/dL (2.3-4.7); Sodium 139 mmol/L (136-145)
[2017-11-17 05:34] LABS: Potassium 2.8 mmol/L (3.5-5.1)
--- NOTE | 2017-11-17 06:23 | PDOC.FM ---
- Subjective Subjective: Patient is a very pleasant man. He describes he is back to his normal amount of diarrhea which is roughly with every meal. He also denies any chest pain, sob, n /v, fevers, chills or coughs. He denies lightheadedness or dizziness. He states that he is willing to be set up for outpatient infusions for electrolyte replacement once he is discharged from the hospital. He offers no other complaints this morning. - Objective Vital Signs & Weight: Vital Signs (12 hours) Temp Pulse Resp BP Pulse Ox 11/17/17 04:00 98.7 F 65 20 133/64 96 11/17/17 00:00 98.0 F 55 L 18 154/71 H 96 11/16/17 21:09 98.2 F 62 18 152/69 H 99 Weight Admit Weight 72.6 kg Weight 67.54 kg Most Recent Monitor Data Heart Rate from ECG 93 NIBP 144/85 NIBP BP-Mean 115 Respiration from ECG 21 SpO2 99 I&O: 11/15/17 11/16/17 11/17/17 06:59 06:59 06:59 Intake Total 864 363 8024.1 Output Total 500 1580 Balance -200 980 -233.9 Result Diagrams: 11/17/17 04:06 11/17/17 04:06 <Brian Das - Last Filed: 11/17/17 08:29> - Objective Vital Signs & Weight: Vital Signs (12 hours) Temp Pulse Resp BP Pulse Ox 11/17/17 08:00 98.7 F 67 16 152/72 H 99 11/17/17 04:00 98.7 F 65 20 133/64 96 11/17/17 00:00 98.0 F 55 L 18 154/71 H 96 Weight Admit Weight 72.6 kg Weight 67.54 kg Most Recent Monitor Data Heart Rate from ECG 93 NIBP 144/85 NIBP BP-Mean 115 Respiration from ECG 21 SpO2 99 I&O: 11/16/17 11/17/17 11/18/17 06:59 06:59 06:59 Intake Total 980 1996.1 Output Total 1580 Balance 980 416.1 Result Diagrams: 11/17/17 04:06 11/17/17 04:06 <Vicky Awan - Last Filed: 11/17/17 11:30> Phys Exam - Physical Examination Constitutional: NAD HEENT: moist MMs Neck: no nodes Respiratory: no wheezing, clear to auscultation bilateral Cardiovascular: RRR, no significant murmur Gastrointestinal: soft, non-tender, no distention, positive bowel sounds Musculoskeletal: no edema, pulses present Neurological: non-focal, normal sensation, moves all 4 limbs Lymphatic: no nodes Psychiatric: normal affect, A&O x 3 Skin: no rash <Brian Das - Last Filed: 11/17/17 08:29> Dx/Plan (1) Aseptic meningitis Code(s): G03.0 - NONPYOGENIC MENINGITIS Status: Resolved (2) Afib Code(s): I48.91 - UNSPECIFIED ATRIAL FIBRILLATION Status: Resolved (3) Diarrhea Code(s): R19.7 - DIARRHEA, UNSPECIFIED Status: Chronic QualifierTitle: Diarrhea type: unspecified type Qualified Code(s): R19.7 - Diarrhea, unspecified (4) Nausea & vomiting Code(s): R11.2 - NAUSEA WITH VOMITING, UNSPECIFIED Status: Resolved (5) Gastroenteritis Code(s): K52.9 - NONINFECTIVE GASTROENTERITIS AND COLITIS, UNSPECIFIED Status : Chronic (6) Seizure disorder Code(s): G40.909 - EPILEPSY, UNSP, NOT INTRACTABLE, WITHOUT STATUS EPILEPTICUS Status: Acute (7) Hyperparathyroidism, secondary Code(s): N25.81 - SECONDARY HYPERPARATHYROIDISM OF RENAL ORIGIN Status: Chronic (8) Hyperchloremic metabolic acidosis Code(s): E87.2 - ACIDOSIS Status: Resolved (9) Hypokalemia Code(s): E87.6 - HYPOKALEMIA Status: Chronic (10) Bradycardia Code(s): R00.1 - BRADYCARDIA, UNSPECIFIED Status: Acute - Plan Plan: 1. Gastroenteritis - pt is about to baseline as he has a chronic diarrhea that has had extensive outpt work up - hold zofran dt long qt - 3 episode of diarrhea in 24 hours and no vomiting. 2. Hypokalemia - Mg low in addition to K - K 2.8 & Mg 1.7 - On scheduled replacement of both electrolytes. - Will continue to track 3. Seizure disorder - has had no episodes since admission here - possibly related to meningitis 4. aseptic meningitis - acyclovir discontinued - unclear as to this diagnosis vs significant electrolyte disturbance as etiology of initial AMS 5. afib - monitor on tele - has had no recurrence 6. physical deconditioning - continue PT Home with PT at time of dc 7. Bradycardia - Asymptomatic, Heart rate in Upper 50s lower 60s currently - Cardiology on board, appreciate Dr. Mayo's and Dr. Eid's recs - Dr. Eid has recommended medication management with pacemaker the last resort. dispo: pt is improving well and currently stable. Electrolytes continue to be difficult to control. Will replenish. <Brian Das - Last Filed: 11/17/17 08:29> Attending Addendum - Attending Addendum I personally evaluated the patient and discussed the management with Dr. Das I agree with the History, Examination, Assessment and Plan documented above with any addition or exceptions noted below- Patient without complaints. Ambulating/voiding. Diarrhea stable. Afebrile VSS A/P: 1) Hypokalemia- replacing with IV and oral today; 2) Hypomagnesemia- improved. 3) Tachybrady symdrome - HR improved with medication adjustment; continue to monitor. Plan to d/c home once potassium stable. <Vicky Awan - Last Filed: 11/17/17 11:30>
[2017-11-17] MEDS ORDERED: Potassium Chloride 20 MEQ TAB PO SCH (06:30)
[2017-11-17] MEDS: Enoxaparin Sodium 40 MG/0.4 ML SYRINGE SC SCH (08:20)
[2017-11-17] MEDS: Pantoprazole 40 MG VIAL IVP SCH ×2 (08:21→21:07)
[2017-11-17] MEDS: Vitami E (Dl,Tocopheryl Acet) 400 UNITS CAP PO SCH (08:21)
[2017-11-17] MEDS: Losartan 25 MG TAB PO SCH (08:21)
[2017-11-17] MEDS: Ascorbic Acid 500 mg Chewable Tablet PO SCH (08:22)
[2017-11-17] MEDS: Potassium Chloride 20 MEQ TAB PO SCH ×3 (08:22→17:17)
[2017-11-17] MEDS: Amiodarone 200 MG TAB PO SCH ×2 (08:22→21:07)
[2017-11-17] MEDS: Magnesium Chloride 64 MG TAB PO SCH ×3 (08:23→21:07)
[2017-11-17] MEDS: Metoprolol Tartrate 25 MG TAB PO SCH ×2 (08:23→21:07)
[2017-11-17] MEDS ORDERED: Potassium Chloride 40 MEQ in Sodium Chloride 0.9% 500 ML IVPB SCH (09:00)
[2017-11-17 16:10] LABS: Anion Gap 13 mmol/L (10-20); BUN (Urea Nitrogen) 9 mg/dL (8.4-25.7); Calc. Creatinine Clearance 59 mL/min (70-130); Calcium 9.3 mg/dL (7.8-10.44); Carbon Dioxide 20 mmol/L (23-31); Chloride 111 mmol/L (98-107); Estimated GFR-MDRD 69; Glucose 114 mg/dL (83-110); Magnesium 1.5 mg/dL (1.6-2.6); Phosphorus 1.1 mg/dL (2.3-4.7); Potassium 4.1 mmol/L (3.5-5.1); Sodium 140 mmol/L (136-145)
[2017-11-17 16:57] LABS: Bilirubin Negative (Negative); Blood, Urine Negative (Negative); Clarity CLEAR (Clear); Glucose, Urine (Dipstick) Negative (Negative); Leukocyte Negative (Negative); Nitrite Negative (Negative); Protein, Urine (Dipstick) Negative (Neg-Trace); Specific Gravity, Urine 1.017 (1.002-1.036); Urobilinogen 0.2 mg/dL (0.2-1.0)
[2017-11-17] MEDS ORDERED: Magnesium 2 GM/NS 0.9% 100 ML 2 GM in Premix Bag 1 BAG IVPB SCH (17:00)
[2017-11-17 17:01] LABS: Bacteria/HPF None Seen HPF (None Seen); Hyaline Casts/LPF 0-3 HYALINE CAST LPF (0-3 Hyaline); Pathc Cast-AUWi Flag 0.13 (0-2.49); RBC/HPF 0-3 HPF (0-3); Squamous Epithelial None Seen HPF (0-3); WBC/HPF 0-3 HPF (0-3)
[2017-11-17] MEDS ORDERED: Potassium Phosphate 9 MMOL in Sodium Chloride 0.9% 100 ML IVPB SCH (18:00)
[2017-11-18 05:52] LABS: #Basophils 0.1 thou/uL (0.0-0.2); #Eosinphils 0.2 thou/uL (0.0-0.7); #Lymphocytes 2.7 thou/uL (1.20-3.40); #Neutrophils 5.7 thou/uL (1.40-6.50); %Basophils 0.8 % (0.0-1.0); %Eosinophils 2.1 % (0.0-10.0); %Lymphocytes 27.7 % (21.0-51.0); %Monocytes 10.6 % (0.0-10.0); %Neutrophils 58.7 % (42.0-75.0); Hemoglobin 11.1 g/dL (14.0-18.0); Mean Corpuscular HGB CONC 32.5 g/dL (32.0-36.0); Mean Corpuscular Hemoglobin 32.9 pg (27.0-31.0); Mean Platelet Volume 7.7 fL (7.4-10.4); Platelet Count 489 thou/uL (130-400); RBC Distribution Width 14.2 % (11.5-14.5); Red Blood Cell (RBC) Count 3.38 mill/uL (4.70-6.10); White Blood Cell (WBC) Count 9.7 thou/uL (4.8-10.8)
[2017-11-18 06:07] LABS: ALT (SGPT) 22 U/L (8-55); AST (SGOT) 17 U/L (5-34); Albumin 3.4 g/dL (3.4-4.8); Alkaline Phosphatase 44 U/L (40-150); Anion Gap 12 mmol/L (10-20); BUN (Urea Nitrogen) 7 mg/dL (8.4-25.7); Bilirubin, Total 0.4 mg/dL (0.2-1.2); Calc. Creatinine Clearance 67 mL/min (70-130); Calcium 8.7 mg/dL (7.8-10.44); Carbon Dioxide 20 mmol/L (23-31); Chloride 110 mmol/L (98-107); Estimated GFR-MDRD 80; Globulin 2.6 g/dL (2.4-3.5); Glucose 107 mg/dL (83-110); Magnesium 1.7 mg/dL (1.6-2.6); Phosphorus 2.6 mg/dL (2.3-4.7); Potassium 3.7 mmol/L (3.5-5.1); Sodium 138 mmol/L (136-145)
--- NOTE | 2017-11-18 08:30 | PDOC.FM ---
- Subjective Subjective: Patient had a good night. He states his diarrhea is back to normal roughly 3-4 BMs per day. He denies blood in his stool. He denies chest pain, sob, n/v, cough , or fevers. He states that he will be able to see his PCP on Wednesday or Wednesday for electrolyte evaluation. He denies any symptoms of lightheadedness, dizziness. He also describes that he has gotten stronger over the past couple of days by walking around and feels ready to go home. No other concerns this morning. - Objective Vital Signs & Weight: Vital Signs (12 hours) Temp Pulse Resp BP Pulse Ox 11/18/17 04:00 98.4 F 57 L 18 146/67 H 96 11/18/17 00:00 97.5 F L 53 L 18 156/72 H 97 Weight Admit Weight 72.6 kg Weight 67.358 kg Most Recent Monitor Data Heart Rate from ECG 93 NIBP 144/85 NIBP BP-Mean 115 Respiration from ECG 21 SpO2 99 I&O: 11/17/17 11/18/17 11/19/17 06:59 06:59 06:59 Intake Total 1995.1 380 Output Total 1580 Balance 416.1 380 Result Diagrams: 11/18/17 04:43 11/18/17 04:42 <Brian Das - Last Filed: 11/18/17 08:30> - Objective Vital Signs & Weight: Vital Signs (12 hours) Temp Pulse Resp BP Pulse Ox 11/18/17 12:55 98.6 F 62 18 157/72 H 100 11/18/17 08:50 97.9 F 62 18 99 11/18/17 08:35 97.9 F 62 18 Weight Admit Weight 72.6 kg Weight 67.358 kg Most Recent Monitor Data Heart Rate from ECG 93 NIBP 144/85 NIBP BP-Mean 115 Respiration from ECG 21 SpO2 99 I&O: 11/17/17 11/18/17 11/19/17 06:59 06:59 06:59 Intake Total 1995.1 380 Output Total 1580 Balance 416.1 380 Result Diagrams: 11/18/17 04:43 11/18/17 04:42 <Vicky Awan - Last Filed: 11/18/17 16:41> Phys Exam - Physical Examination Constitutional: NAD HEENT: PERRLA, moist MMs Neck: no nodes Respiratory: no wheezing, clear to auscultation bilateral Cardiovascular: RRR, no significant murmur Gastrointestinal: soft, non-tender, no distention, positive bowel sounds Musculoskeletal: no edema, pulses present Neurological: non-focal, normal sensation, moves all 4 limbs Lymphatic: no nodes Psychiatric: normal affect, A&O x 3 Skin: no rash <Brian Das - Last Filed: 11/18/17 08:30> Dx/Plan (1) Aseptic meningitis Code(s): G03.0 - NONPYOGENIC MENINGITIS Status: Resolved (2) Afib Code(s): I48.91 - UNSPECIFIED ATRIAL FIBRILLATION Status: Resolved (3) Diarrhea Code(s): R19.7 - DIARRHEA, UNSPECIFIED Status: Chronic QualifierTitle: Diarrhea type: unspecified type Qualified Code(s): R19.7 - Diarrhea, unspecified (4) Nausea & vomiting Code(s): R11.2 - NAUSEA WITH VOMITING, UNSPECIFIED Status: Resolved (5) Gastroenteritis Code(s): K52.9 - NONINFECTIVE GASTROENTERITIS AND COLITIS, UNSPECIFIED Status : Chronic (6) Seizure disorder Code(s): G40.909 - EPILEPSY, UNSP, NOT INTRACTABLE, WITHOUT STATUS EPILEPTICUS Status: Acute (7) Hyperparathyroidism, secondary Code(s): N25.81 - SECONDARY HYPERPARATHYROIDISM OF RENAL ORIGIN Status: Chronic (8) Hyperchloremic metabolic acidosis Code(s): E87.2 - ACIDOSIS Status: Resolved (9) Hypokalemia Code(s): E87.6 - HYPOKALEMIA Status: Chronic (10) Bradycardia Code(s): R00.1 - BRADYCARDIA, UNSPECIFIED Status: Acute - Plan Plan: 1. Gastroenteritis - pt is about to baseline as he has a chronic diarrhea that has had extensive outpt work up - hold zofran dt long qt - 3 episode of diarrhea in 24 hours and no vomiting. 2. Hypokalemia - Mg low in addition to K - K 3.7 & Mg 1.7 - On scheduled replacement of both electrolytes. - Will need close outpatient monitoring. 3. Seizure disorder - has had no episodes since admission here - possibly related to meningitis 4. aseptic meningitis - acyclovir discontinued - unclear as to this diagnosis vs significant electrolyte disturbance as etiology of initial AMS 5. afib - monitor on tele - has had no recurrence 6. physical deconditioning - continue PT Home with PT at time of dc 7. Bradycardia - Asymptomatic, Heart rate in Upper 50s lower 60s currently - Cardiology on board, appreciate Dr. Mayo's and Dr. Eid's recs - Dr. Eid has recommended medication management with pacemaker the last resort. dispo: pt is improving well and currently stable. Electrolytes continue to be difficult to control. Patient ready for discharge with close follow up with his PCP. <Brian Das - Last Filed: 11/18/17 08:30> Attending Addendum - Attending Addendum I personally evaluated the patient and discussed the management with Dr. Das I agree with the History, Examination, Assessment and Plan documented above with any addition or exceptions noted below- Patietn denies any complaints. Minimal diarrhea. Afebrile VSS A/P: 1) hypokalemia, hypomagnesemia- resolved. 2 ) Tachybrady syndrome- improved with medication adjustment. Follow up with cardiology. D/c home today. <Vicky Awan - Last Filed: 11/18/17 16:41>
[2017-11-18] MEDS: Potassium Chloride 20 MEQ TAB PO SCH ×2 (08:55→13:11)
[2017-11-18] MEDS: Ascorbic Acid 500 mg Chewable Tablet PO SCH (08:55)
[2017-11-18] MEDS: Amiodarone 200 MG TAB PO SCH (08:55)
[2017-11-18] MEDS: Vitami E (Dl,Tocopheryl Acet) 400 UNITS CAP PO SCH (08:56)
[2017-11-18] MEDS: Enoxaparin Sodium 40 MG/0.4 ML SYRINGE SC SCH (08:56)
[2017-11-18] MEDS: Magnesium Chloride 64 MG TAB PO SCH (08:57)
[2017-11-18] MEDS: Pantoprazole 40 MG VIAL IVP SCH (08:57)
[2017-11-18] MEDS: Losartan 25 MG TAB PO SCH (09:11)
[2017-11-18] MEDS ORDERED: hydrALAZINE 25 MG TAB PO SCH ×2 (09:45→21:00)
[2017-11-18] MEDS: Potassium Chloride 40 MEQ in Sodium Chloride 0.9% 500 ML IVPB SCH ×2 (10:32→11:51)
[2017-11-18 13:15] VITALS: BP 157/72; TEMP 98.6
--- NOTE | 2017-11-19 01:24 | DIS-2 ---
ADMISSION DATE: 11/02/2017 DISCHARGE DATE: 11/18/2017 RESIDENT: Dr. Das. ADMITTING ATTENDING: Dr. Giraldo. DISCHARGE ATTENDING: Dr. Awan. CONSULTS: Anesthesiology, with Cardiology and Dr. Eid as well as Dr. Mayo, Gastroenterology with Dr. Pineda, Pulmonology with Dr. Johnson. OT, PT. PROCEDURES: Patient underwent an echocardiogram on 11/02/2017 that showed an ejection fraction of 60% to 65%. A flow reversal noted suggestive of diastolic dysfunction, moderate mitral regurgitation is present. Moderate to severe tricuspid regurgitation is present. The patient underwent a chest x-ray on 11/02/2017 that demonstrated a catheter descending the mediastinum then doubled back on itself with the distal tip ascending. It is presumed that this is an NG tube in the esophagus. Next, the last image demonstrated tube with distal tip of the cervicothoracic junction and normal appearance of the stomach could represent infiltrative gastric carcinoma. No acute pulmonary findings. He underwent an abdominal pelvis CT on 11/02/2017 that showed advancement of the nasogastric tube is recommended. Edematous change involving the distal stomach proximal duodenum correlate for possible ulcer disease. There is focal air collection in the second portion of the duodenum without significant adjacent inflammatory changes, small duodenal diverticulum is noted. Ulcerative lesion cannot be completely excluded, but is less favored at this time due to lack of inflammatory at the site or the small air collection. Mild distention of the area filled in the colon without evidence of colonic obstruction abrupt caliber change in duodenum just beyond the aforementioned air collection. Small amount of free fluid in the right hemiabdomen. Underwent a brain CT on 11/02/2017, which showed no acute intracranial process, age appropriate atrophy, chronic small vessel ischemic change of the white matter, medial right temporal lobe hippocampal malacic changes. Again, underwent another chest x-ray on 11/02/2017, showed no acute pulmonary findings , ectasia of the thoracic aorta. Endotracheal tube distal tip overlying the mid thoracic trachea. Nasogastric tube distal tip overlying the proximal stomach with a side portion probably at low esophagus, abnormality in the stomach, possibly diffuse infiltrative gastric cancer. On 11/02/2017, another chest x-ray, status post intubation, no changes from the previous study. Another chest x-ray on 11/02/2017 that showed right internal jugular central venous catheter placement. Another chest x-ray on 11/03/2017 that showed a stable chest. Patient underwent an EGD by Dr. Pineda showed LA grade D, reflux mediated esophagitis with possible component of OG tube trauma in the distal and midesophagus, increased patches mucosa with erythema and linear ulceration extending from the GE junction into the lesser curvature consistent with OG tube trauma. A large 3 to 4 shallow clean-based ulceration in the duodenal bulb, concerning for H. pylori versus NSAID ulceration. Next, the patient underwent an abdominal x-ray on 11/04/2017 that showed Dobhoff feeding tube in the left upper quadrant, likely within the stomach. Gaseous distention of the colon, unchanged from previous CT. Based on the previous CT air attenuation was noted all the way down to the level of the rectum. On 11/05/2017, had a chest x-ray that showed, no acute cardiopulmonary findings , interval exchange of NG tube or Dobhoff feeding tube, which distal tip in the proximal stomach. Endotracheal tube in right-sided central vascular catheter remained. An abdominal x-ray on 11/06/2017 that showed persistent prominent gaseous distention of the bowel. Chest x-ray on 11/06/2017 that showed no acute interval changes. Patient underwent an acute abdominal series on 11/07/2017, the chest shows the lungs to be well aerated. There is diffuse vascular interstitial prominence without confluent infiltrate or consolidation. ET tube, NG tube, and central line appear in adequate position. The abdominal film shows diffuse gaseous dilatation of the colon. There was scattered small bowel gas, which appears nonspecific. No free air identified. Patient also underwent an abdominal x- ray on 11/08/2017 that showed diffuse gaseous distention of the bowel, primarily the colon, especially the region of the cecum consistent with provided history of Sunshine syndrome. No evidence of free intraperitoneal air. The patient underwent an abdominal x-ray on 11/09/2017 that showed a feeding tube was seen with tip in production of the proximal stomach. There is air in the distended loops of colon. There are degenerative changes in the spine. Abdominal x-ray on 11/11/2017 that showed a large amount of gas seen in the ascending transverse colon. Abdominal gas pattern is otherwise unremarkable without evidence of significant small bowel dilatation. PRIMARY DIAGNOSES: 1. Gastroenteritis. 2. Hypokalemia. 3. Hypomagnesemia. 4. Seizure disorder. 5. Atrial fibrillation. 6. Bradycardia. 7. Physical deconditioning. 8. Hyperparathyroidism secondary. 9. Hyperkalemic metabolic acidosis. DISCHARGE MEDICATIONS: 1. Mucinex 600 mg b.i.d. 2. Claritin 10 mg. 3. Metformin 1000 mg. 4. Vitamin E 400 units daily. 5. Fish oil 1000 mg p.o. daily. 6. Glucosamine 1500 complex capsule. 7. Tums 1000 mg b.i.d. with meals. 8. Aspirin 81 mg. 9. Vitamin C 500 mg daily. 10. Vitamin D 2000 units. 11. Diazepam 2 mg p.o. p.r.n. 12. Omeprazole 20 mg. 13. Losartan potassium 100 mg. 14. Magnesium chloride 192 mg p.o. t.i.d. 15. Potassium chloride 40 mEq p.o. t.i.d. with meals. 16. Amiodarone 200 mg b.i.d. 26 pills. 17. Hydralazine 25 mg b.i.d. 18. Metoprolol succinate 50 mg daily. DISCONTINUED MEDICATIONS: Metoprolol succinate 100 mg daily, potassium chloride 20 mEq, triamterene hydrochlorothiazide 37.5/25 mg, magnesium chloride 64 mg p.o. t.i.d. HISTORY OF PRESENT ILLNESS AND HOSPITAL COURSE: This patient presented to the transferring facility emergency room on 10/31 with 4 days of acute on chronic diarrhea with associated nausea and vomiting. He was admitted for electrolyte imbalance and dehydration where he is to receive replacement and intravenous fluids. During the inpatient stay there was significant difficulty in maintaining the patient's magnesium and phosphorus levels. Additionally, the patient had increasing LFTs and bilirubin. In the ED prior to admission, the patient seized for an undetermined reason. Also, during the initial admission, the patient had 1 day of fever as high as 100.7. While admitted, he has been treated with Cipro and Flagyl for presumed C. diff; however, none of the stool studies that resulted by the time of discharge. The patient was transferred for acute change of mental status and having ability to manage the patient's electrolytes. The patient was intubated prior to transfer due to dysuria, inability to protect his airway. At this facility, the patient arrived intubated and had been medicated with succinylcholine, rocuronium and sedated on ketamine. Patient was initially intubated with a 6-0 ET tube and x-ray to verify placement of the tube was unable to show proper placement. Anesthesia was consulted and replaced 6-0 with an 8-0 ET tube with a GlideScope , it was determined that the original ET tube cuff was above the vocal cords. The patient was then successfully intubated by Anesthesia with verification of ET tube placement with chest x-ray. During this hospitalization, the patient has notable lab values of a white blood cell count that ranged from 23.8 down to 9.7 on day of discharge. He also had hemoglobin that ranged from 14.1 on day of admission down to 11.1 on day of discharge. We did have a significant amount of time dealing with his electrolytes. On the day of admission, his potassium was 3.4. It ranged all the way down to 2.7 and on day of discharge was 3.7 with multiple days of replenishment. The patient also had a phosphorus that ranged from as low as 1.1 and then as high as 2.8 with it being 2.6 on day of discharge. Patient also had difficulty maintaining his magnesium. On day of admission was 1.7, on day of discharge was 1.7 with multiple replacements as well. Patient also had a nonreactive syphilis, screens negative for hepatitis A, negative for hepatitis B negative for hepatitis C and negative for HIV. Patient also had an unremarkable CSF culture. Patient also had blood cultures that showed no growth at 5 days. Urine culture that showed no for 3 days. Had a Campylobacter antigen assay, Shiga toxin test, and E. coli 0157 cultures that were negative. He had a stool lactoferrin that showed absence of elevated fecal lactoferrin as well as negative for C. diff antigen and toxin. Patient did have a stool culture that grew out yeast species from one stool culture on 11/04/2017. Once the patient was able to recover enough and be extubated. The patient was able to provide history that he has had longstanding diarrhea for greater than a decade and then it was just acutely worse, which made him come to the hospital. It was also made known that he has chronically needed to have supplementation for his magnesium, his phosphorus, and his potassium, long-term as well. The patient was seen by multiple specialists including Cardiology, Pulmonology, and Gastroenterology. Dr. Pineda with Gastroenterology stated that this patient has chronic severe diarrhea with an unclear etiology, but he was to be treated empirically during this hospitalization. 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 The patient underwent the EGD with findings as above in the procedure section. Patient also was seen by Dr. Johnson and Pulmonology, which he offered recommendations for colonic ileus. Recent viral illness with probable meningitis, encephalitis, which is mild and transient seizure that was most likely related to above and then a probable irritable bowel with diarrhea chronically and then transient atrial fibrillation. He was medically cleared from the pulmonology standpoint as well. After he was extubated and was recovering. He did have episodes where his heart rate would drop down into the 40s and so at that time Dr. Mayo was consulted to evaluate the patient for bradycardia. He also noted some atrial fibrillation with rapid rate, so there was some concern for tachybrady syndrome. Dr. Eid see the patient and Dr. Eid recommended medical management with the last resort of being a pacemaker placement. Patient otherwise continued to be asymptomatic, had no further complications during this hospitalization, but did undergo several days of replenishment of his electrolytes. Patient was taking very large doses of oral electrolyte replacement without really any resolution of his electrolyte deficiencies and was started on some IV replacement with some better results from that standpoint. It is recommended from us that he be reevaluated for a renal tubular acidosis condition or a renal aldosterone condition as to why he would not be absorbing the electrolytes as well orally as he is through an intravenous source. The patient has been given several precautions to return to any emergency department for lab evaluation if he starts to feel bad from electrolyte imbalance standpoint. Patient is from [place] and seeks most of his care in [place] and he says that he will follow up and schedule an appointment for early next week. Otherwise, patient had no other further complication during this hospitalization and was discharged on appropriate condition. DISPOSITION: Stable. DISCHARGE INSTRUCTIONS: Location: He will be discharged home into the care of himself. Diet will be heart healthy and diabetic diet. Activity: Will be with cardiopulmonary limitations until he can make full recovery. Followup: Will be with his PCP Dr. Alicja Calvillo and with Dr. Eid with Cardiology. So Dr. Calvillo in [address] Eid in 1 week to did discuss further management of his heart arrhythmia. We wishes get the best of luck and hope that he has no further complications from this disease. [facility]
== END 2017-11-18 15:39 | disposition home or self-care (01) | DRG 207 ==
LOC: CCU 13:53 → 2NO 11-09 22:15
PROVIDERS: ADMIT Family Medicine; ATTEND Family Medicine
PROC: 009U3ZZ Drainage of Spinal Canal, Percutaneous Approach (ICD-10-PCS; principal; 2017-11-02)
PROC: 02HV33Z Insertion of Infusion Device into Superior Vena Cava, Percutaneous Approach (ICD-10-PCS; 2017-11-02)
PROC: 5A1955Z Respiratory Ventilation, Greater than 96 Consecutive Hours (ICD-10-PCS; 2017-11-02)
PROC: 0BH17EZ Insertion of Endotracheal Airway into Trachea, Via Natural or Artificial Opening (ICD-10-PCS; 2017-11-02)
PROC: 0DJ08ZZ Inspection of Upper Intestinal Tract, Via Natural or Artificial Opening Endoscopic (ICD-10-PCS; 2017-11-04)
DX: J96.01 Acute respiratory failure with hypoxia (principal); G04.90 Encephalitis and encephalomyelitis, unspecified; N17.9 Acute kidney failure, unspecified; K56.699 Other intestinal obstruction unspecified as to partial versus complete obstruction; G03.0 Nonpyogenic meningitis; I95.9 Hypotension, unspecified; E87.2 Acidosis; I48.0 Paroxysmal atrial fibrillation; M62.82 Rhabdomyolysis; E83.42 Hypomagnesemia; E83.39 Other disorders of phosphorus metabolism; K52.9 Noninfective gastroenteritis and colitis, unspecified; K26.9 Duodenal ulcer, unspecified as acute or chronic, without hemorrhage or perforation; E11.9 Type 2 diabetes mellitus without complications; G40.909 Epilepsy, unspecified, not intractable, without status epilepticus; E86.0 Dehydration; E21.3 Hyperparathyroidism, unspecified; E87.6 Hypokalemia; I10 Essential (primary) hypertension; K58.0 Irritable bowel syndrome with diarrhea; K21.0 Gastro-esophageal reflux disease with esophagitis; R00.1 Bradycardia, unspecified; Z79.84 Long term (current) use of oral hypoglycemic drugs; Z79.82 Long term (current) use of aspirin; E83.51 Hypocalcemia; E66.9 Obesity, unspecified; D64.9 Anemia, unspecified; Z68.21 Body mass index [BMI] 21.0-21.9, adult
CPT/HCPCS: 36415; 36416; 62272; 70450; 71045; 74018; 74019; 74022; 74177; 80053; 80162; 81001; 82274; 82306; 82533; 82550; 82553; 82784; 82805; 82945; 83516; 83630; 83690; 83735; 83970; 84100; 84145; 84157; 84443; 84484; 85025; 86255; 86704; 86706; 86708; 86780; 86803; 87040; 87045; 87046; 87070; 87086; 87205; 87324; 87328; 87329; 87338; 87340; 87389; 87449; 87899; 89051; 93005; 93010; 93306; 94002; 94003; A4216; C9113; G8978-GP-CJ; G8978-GP-CN; G8979-GP-CH; G8979-GP-CK; G8987-GO-CN; G8988-GO-CL; J0133; J0282; J0461; J1160; J1650; J2060; J2405; J2543; J2704; J3010; J3370; J3475; J3480; J7050; J7070; J7620; Q0162